=== PATIENT | female | born 1930 | race Caucasian/White ===

== ENCOUNTER 2017-05-06 18:33 | Observation (INO) ==
--- NOTE | 2017-05-06 18:44 | Emergency Department Report ---
Chest Pain HPI - General Stated Complaint: cp Time Seen by Provider: 05/06/17 18:39 Source: patient Mode of arrival: ambulatory Limitations: no limitations - History of Present Illness HPI narrative: Chest pain persistent upper chest and into right shoulder and neck. Took her routine Claritin and Nitro without relief. 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 Sometimes pt requires IV Nitro drip, and feels that she is at that point now. MD complaint: chest pain Onset (ago): hour(s) - Related Data Home Medications Medication Instructions Recorded Confirmed Aspirin 81 mg PO DAILY #0 03/21/16 05/06/17 Clopidogrel Bisulfate [Plavix] 75 mg PO DAILY #0 03/21/16 05/06/17 Gemfibrozil 600 mg PO DAILY #0 03/21/16 05/06/17 Levothyroxine Sodium 88 mcg PO DAILY #0 03/21/16 05/06/17 Loratadine 10 mg PO DAILY #0 03/21/16 05/06/17 Nitroglycerin 1 spray BUC PRN #0 07/02/16 05/06/17 Amlodipine [Norvasc] 10 mg PO DAILY 02/04/17 05/06/17 Biotin 1 mg PO DAILY 02/04/17 05/06/17 Metformin [Glucophage] 1,000 mg PO BIDWM 02/04/17 05/06/17 Multivitamin [One Daily 1 each PO DAILY 02/04/17 05/06/17 Multivitamin] Spironolactone [Aldactone] 50 mg PO DAILY 02/04/17 05/06/17 Ascorbic Acid 500 mg PO DAILY 05/06/17 05/06/17 Cholecalciferol [Vit. D-3] 1,000 units PO DAILY 05/06/17 05/06/17 Famotidine 10 mg PO DAILY 05/06/17 05/06/17 LORazepam [Ativan] 0.5 mg PO PRN PRN 05/06/17 05/06/17 Magnesium Chloride [Slo Mag] 2 tab PO DAILY 05/06/17 05/06/17 Nitroglycerin [Nitroglycerin Patch] 0.6 mg TD DAILY 05/06/17 05/06/17 Tramadol [Ultram] 50 mg PO Q4HR 05/06/17 05/06/17 Allergies Allergy/AdvReac Type Severity Reaction Status Date / Time propranolol Allergy Unknown Verified 02/04/17 18:48 Icpjkzb-Ilu-Ewv Reductase Allergy Unknown Verified 02/04/17 18:48 Inhibitor gluten AdvReac Intermediate "My body Verified 02/04/17 18:48 doesn't handle it well if I have too much" Review of Systems All systems: reviewed and negative except as stated PFSH Patient Stated Medical History Transient Ischemic Attacks ( Yes TIA) Cataracts Yes Hypertension Yes Other Cardiology Yes: coronary artery spasm Diabetes Mellitus Type 2 Yes Gastroesophageal Reflux Yes Disease Post Menopausal Yes Prinzmetal Angina Surgical History: Hysterectomy - Social History Smoking status: Never smoker Physical Exam - Limitations Limitations: no limitations - General General appearance: alert - Normal Exams: Head:: Normocephalic without trauma Eyes:: Pupils are PERRLA w/ EOMI, No scleral icterus, irritation, or foreign bodies noted ENMT:: No facial trauma, nasal exudates, pharyngeal erythema, or exudates are noted Neck:: Full range of motion, without adenopathy, JVD, bruits or thyromegaly Chest/Respirations:: Clear all jordan, with good airflow, and symmetry bilaterally Abdomen:: Bowel sounds positive, soft, non-tender, non-distended, no hepatosplenomegaly, masses or bruits noted Lymphatic:: No lymphadenopathy, or lymphedema noted Musculoskeletal:: No tenderness, or deformity noted, good range of motion, all extremities Integumentary:: No rashes, hives, or bruising noted, hair and nails, without abnormality Neurological:: Patient is alert, and oriented, cranial nerves, motor/sensory/ cerebellar, exams w/o gross deficits, to observation Psychiatric:: Patient exhibits, appropriate attention, emotion and affect - Chest Chest inspection: Present: normal inspection, symmetric chest wall rise. Absent : tenderness - Cardiovascular Cardiovascular exam: Present: regular rate, normal rhythm, systolic murmur. Absent: bradycardia, tachycardia, normal heart sounds, diastolic murmur, rubs, gallop, clicks, JVD Course Vital Signs Temperature 98.0 F 05/06/17 18:33 Pulse Rate 78 05/06/17 18:33 Respiratory Rate 16 05/06/17 18:33 Blood Pressure 178/78 H 05/06/17 18:33 Pulse Oximetry 97 05/06/17 18:33 Temperature 98.0 F 05/06/17 18:33 Pulse Rate 68 05/06/17 18:55 Respiratory Rate 15 05/06/17 18:55 Blood Pressure 118/61 05/06/17 18:55 Pulse Oximetry 98 05/06/17 18:55 Chest Pain - MDM Narrative Medical decision making narrative: EKG shows a normal sinus rhythm without ischemia, ectopy, or infarction Patient given one sublingual nitroglycerin here in the ER, and had significant reduction in pain from 5-1. Patient given additional one nitroglycerin, and started on nitro paste Patient is also given 1 L normal saline IV fluid bolus CBC - n CMP - n Troponin - n Discussion with the patient and her spouse reveal that the patient would prefer to be admitted to [facility] where her volunteer specialist is, however due to her 's frailty, she would prefer to state [facility]'s she is unable to get a hold of her family so that they can watch over her while she is in the hospital. She would prefer that he does not have far to drive between home and the hospital. Case is discussed with Susana Chicas APRN - admit to Dr. Patterson's service for observation tonight and continued therapy - Lab Data Result diagrams: 05/06/17 19:04 05/06/17 19:04 Lab Results 05/06/17 05/06/17 Range/Units 19:04 19:04 WBC 8.3 (4.5-11.0) T/MM3 RBC 4.90 (4.00-5.20) M/MM3 Hgb 13.5 (12-16) GM/DL Hct 41.8 (36-46) % MCV 85.3 (80-100) UM3 MCH 27.6 (26-34) UUG MCHC 32.3 (31-37) GM/DL RDW Std Deviation 40.5 (36.9-50.2) FL Plt Count 432 H (130-400) T/MM3 MPV 10.2 (9.4-12.4) UM3 Immature Gran % (Auto) 0.1 (0.0-0.5) % Neut % (Auto) 47.9 (33-66) % Lymph % (Auto) 38.4 (23-45) % [place] % (Auto) 9.9 H (0-9.0) % Eos % (Auto) 2.7 (0-4) % Baso % (Auto) 1.0 (0-2) % Neut # 4.0 (1.8-7.7) T/MM3 Lymph # 3.2 (1-4.8) T/MM3 [place] # 0.8 (0-0.8) T/MM3 Eos # 0.2 (0-0.5) T/MM3 Baso # 0.1 (0-0.2) T/MM3 Abs Immat Gran (auto) 0.01 (0.00-0.03) T/MM3 Turbidity < 20 (0-20) Sodium 143 (134-144) MEQ/L Potassium 4.2 (3.6-5) MEQ/L Chloride 100 (98-107) MEQ/L Carbon Dioxide 29 (22-30) MEQ/L Anion Gap 14 (5-15) MEQ/L BUN 19.0 H (7-17) MG/DL Creatinine 0.8 (0.7-1.2) MG/DL GFR Calculation 68 BUN/Creatinine Ratio 24 (6-26) RATIO Glucose 198 H (65-110) MG/DL Calculated Osmolality 283 H (261-280) MOSM/KG Calcium 10.8 H (8.4-10.2) MG/DL Total Bilirubin 0.60 (0.20-1.30) MG/DL Conjugated Bilirubin 0.00 (0.00-0.30) MG/DL Unconjugated Bilirubin 0.10 (0.00-11.10) MG/DL Icterus Index < 2 (0-7) AST 18 (14-36) U/L ALT 31 (9-52) U/L Alkaline Phosphatase 81 (38-126) U/L Troponin I < 0.012 (0-0.12) ng/ml Total Protein 8.6 H (6.3-8.2) G/DL Albumin 4.9 (3.5-5.0) G/DL Globulin 3.7 H (2.4-3.6) G/DL Albumin/Globulin Ratio 1.3 (1.1-2.2) RATIO Specimen Hemolysis < 15 (0-25) Disposition Clinical Impression: Prinzmetal's angina Disposition: 02 To OBS [facility] [place] Condition: Improved - Seen By: physician
[2017-05-06] MEDS: SALINE FLUSH 10ml SYRINGE IVF PRN (18:45)
[2017-05-06] MEDS ORDERED: NITROGLYCERIN 0.4 MG SUBLINGUAL TABLET SL ONE ×2 (18:48→19:02)
[2017-05-06] MEDS ORDERED: ASPIRIN 81 MG CHEWABLE TABLET PO ONE (18:48)
[2017-05-06] MEDS ORDERED: NITROGLYCERIN DRIP 50 MG/250 ML BAG IV PRN (18:52)
--- OUTSIDE RECORDS SUMMARY | 2017-05-06 18:52 | External Medical Summary | Referral Summary ---
:1930 Author Organization [facility], [address] [place] [address] Care Team Providers Name Role Phone Moose Smith V Primary Care Physician Encounter VC Date(s): 03/18/16 - 03/18/16 [facility] [address] [place] [address] Discharge Diagnosis: Hyperlipidemia Discharge Diagnosis: Hypothyroidism Discharge Diagnosis: Hx-TIA (transient ischemic attack) Discharge Diagnosis: Benign hypertension Discharge Diagnosis: Hx of peptic ulcer Discharge Diagnosis: Type 2 diabetes mellitus Discharge Diagnosis: CAD (coronary artery disease) Discharge Diagnosis: Weight loss Discharge Disposition: 01-Home or Self Care Attending Physician: Moose Smith MD Admitting Physician: Moose Smith MD Vital Signs Most recent to oldest [Reference Range]: 1 Temperature Tympanic [36.6-38.1 degC] 36.9 degC (03/18/16 3:47 PM) Peripheral Pulse Rate [60-100 bpm] 69 bpm (03/18/16 3:47 PM) Blood Pressure [90-140/60-90 mmHg] 140/65 mmHg (03/18/16 3:47 PM) SpO2 96 % (03/18/16 3:47 PM) Problem List Condition Effective Dates Status Health Status Informant Angina/ Chest Pain(Confirmed) Resolved Cataracts(Confirmed) Resolved Diabetes(Confirmed) Resolved Heart Disease(Confirmed) Resolved High Cholesterol(Confirmed) Resolved Irregular Heart Rhythm(Confirmed) Resolved Obesity(Confirmed) Active patient Rheumatic fever(Confirmed) Resolved Thyroid Diease/ Goiter(Confirmed) Resolved Type 2 diabetes mellitus(Confirmed) Active Ulcers(Confirmed) Resolved Varicella Zoster(Confirmed) Resolved Allergies, Adverse Reactions, Alerts Substance Reaction Severity Status atenolol Active codeine Active hydrochlorothiazide Active niacin Active propranolol Active simvastatin Active spironolactone Active Medications amLODIPine 5 mg, Oral, Daily, 0 Refill(s) Start Date: 03/18/16 Status: Orderedaspirin 81 mg, Oral, Daily, 0 Refill(s) Start Date: 02/10/14 Status: OrderedBenadryl 50 mg, Oral, Bedtime (once a day), 0 Refill(s) Start Date: 03/18/16 Status: Orderedbiotin 5 mg, Oral, Daily, 0 Refill(s) Start Date: 02/10/14 Status: OrderedClaritin 10 mg, Oral, Daily, 0 Refill(s) Start Date: 02/10/14 Status: Orderedfurosemide 20 mg oral tablet 20 mg 1 tabs, Oral, Daily, # 30 tabs, 0 Refill(s) Start Date: 04/11/15 Status: OrderedHome Oxygen (DME) See Instructions, # 1 Each, 0 Refill(s), Supply Start Date: 02/10/14 Status: OrderedImdur 120 mg oral tablet, extended release See Instructions, 2 x daily 7 hrs apart, 0 Refill(s) Start Date: 02/10/14 Status: OrderedL-Carnitine 250 mg oral capsule 1 caps, Oral, Daily, # 60 caps, 0 Refill(s) Start Date: 02/10/14 Status: OrderedLantus Solostar Pen 12 units, SubCutaneous, Bedtime (once a day), 0 Refill(s) Start Date: 03/18/16 Status: Orderedlevothyroxine 88 mcg, Oral, Daily, 0 Refill(s) Start Date: 02/10/14 Status: OrderedLopid 600 mg, Oral, q2Days, 0 Refill(s) Start Date: 02/10/14 Status: Orderedmultivitamin Daily, 0 Refill(s) Start Date: 02/10/14 Status: Orderednitroglycerin 0.4 mg sublingual spray 1 sprays, SubLingual, q5min, as needed for chest pain, # 12 g, 0 Refill(s) Start Date: 02/10/14 Status: OrderedOne Touch Ultra Test strips One Touch Ultra Test strips, See Instructions, TEST 3 times a day; dx code: 250.02, # 270 Each, 1 Refill(s), Pharmacy: [facility] #[id number], patient needs an appt, TEST 3 times a day; dx code: 250.02 Start Date: 01/01/15 Status: OrderedPlavix 75 mg oral tablet 1 tabs, Oral, Daily, # 30 tabs, 0 Refill(s) Start Date: 02/10/14 Status: OrderedSlow-Mag See Instructions, 2 AT HS, 1 AM, 0 Refill(s) Start Date: 02/10/14 Status: Orderedspironolactone 25 mg oral tablet 1 tabs, Oral, Daily, # 30 tabs, 0 Refill(s) Start Date: 02/10/14 Status: OrderedtraMADol 50 mg oral tablet 50 mg 1 tabs, Oral, q4hr, as needed for pain, 0 Refill(s) Start Date: 03/18/16 Status: Ordered Results No data available for this section Immunizations No data available for this section Procedures Procedure Date Related Diagnosis Body Site Cataract extraction Cholecystectomy Heart Cath& stents Hospitalization - many times for angina1 hysterectomy Miscellaneous2 tonsillectomy 1See conversion document.2right SHOULDER SURG - ROTATOR CUFF REPAIR, 2001 Social History Social History Type Response Smoking Status Never smoker Assessment and Plan Extracted from: Title: estab. patient Author: Moose Smith MD Date: 03/18/16 Impression and Plan Diagnosis Hypothyroidism (YLP20-ZD E03.9, Discharge, Medical). Type 2 diabetes mellitus (RXX57-RI E11.9, Discharge, Medical). Hyperlipidemia (LUB26-ES E78.5, Discharge, Medical). Benign hypertension (VFH61-JC I10, Discharge, Medical). CAD (coronary artery disease) (JWJ17-DD I25.10, Discharge, Medical). Weight loss (IYB25-NV R63.4, Discharge, Medical). Hx-TIA (transient ischemic attack) (JCS52-OM Z86.73, Discharge, Medical). Hx of peptic ulcer (PCC76-XL Z87.11, Discharge, Medical). Orders Orders (Selected) Outpatient Orders Future (On Hold) Albumin/Creatinine Ratio, Urine: CMP: Fasting Lipid Profile: Hgb A1c: TSH with Reflex Free T4: .
--- OUTSIDE RECORDS SUMMARY | 2017-05-06 18:52 | External Medical Summary | Referral Summary ---
:1930 Author Organization [facility], Gennaro Bryant Address [address] [place] [address] Care Team Providers Name Role Phone Garfield Siena Pennie Primary Care Physician Encounter VC Date(s): 04/11/15 - 04/11/15 [facility], [facility] [address] [place] [address] - [place] Discharge Diagnosis: Type 2 diabetes mellitus Discharge Diagnosis: Hyperlipidemia Discharge Disposition: 01-Home or Self Care Attending Physician: Shelly Reis Admitting Physician: Shelly Reis Vital Signs Most recent to oldest [Reference Range]: 1 Peripheral Pulse Rate [60-100 bpm] 82 bpm (04/11/15 10:14 AM) Blood Pressure [90-140/60-90 mmHg] 140/80 mmHg (04/11/15 10:14 AM) Problem List Condition Effective Dates Status Health [...] propranolol Active simvastatin Active spironolactone Active Medications aspirin 81 mg, Oral, Daily, 0 Refill(s) Start Date: 02/10/14 Status: Orderedbiotin 5 mg, Oral, Daily, 0 Refill(s) Start Date: 02/10/14 Status: Orderedcinnamon 500 mg oral capsule 1 caps, Oral, Daily, # 100 caps, 0 Refill(s) Start Date: 02/10/14 Status: OrderedClaritin 10 mg, Oral, Daily, 0 Refill(s) Start Date: 02/10/14 Status: OrderedCo Q-10 100 mg, Oral, Daily, 0 Refill(s) Start Date: 02/10/14 Status: Orderedfamotidine 20 mg oral tablet 1 tabs, Oral, Daily, # 30 tabs, 0 Refill(s) Start Date: 02/10/14 Status: OrderedFish Oil 1000 mg oral capsule 1 caps, Oral, BID, # 60 caps, 0 Refill(s) Start Date: 02/10/14 Status: Orderedfurosemide 20 mg oral tablet 20 mg 1 tabs, Oral, Daily, # 30 tabs, 0 Refill(s) Start Date: 04/11/15 Status: OrderedGlucometer strips (DME) DME Item One Touch ultra test strips Test fasting and 2 hrs after each meal, See Instructions, # 1 Each, 0 Refill(s), Supply Start Date: 02/10/14 Status: OrderedGlucometer strips (DME) DME Item One touch ultra blue strips; Test 4 times daily; dx code: 250.02, See Instructions, # 360 Each, 3 Refill(s), Pharmacy: [facility] #[id number], One touch ultra blue strips; Test 4 times daily; dx code: 250.02, Supply Start Date: 10/12/14 Status: OrderedHome Oxygen (DME) See Instructions, # 1 Each, 0 Refill(s), Supply Start Date: 02/10/14 Status: OrderedHumaLOG 6 units, SubCutaneous, TIDAC, Humalog Kwik Pen, 0 Refill(s) Start Date: 02/10/14 Status: OrderedImdur 120 mg oral tablet, extended release See Instructions, 2 x daily 7 hrs apart, 0 Refill(s) Start Date: 02/10/14 Status: OrderedInsulin Pin [place] (DME) DME Item use with insulin QID, See Instructions, # 1 Each, 0 Refill(s), Supply Start Date: 02/10/14 Status: OrderedL-Carnitine 250 mg oral capsule 1 caps, Oral, Daily, # 60 caps, 0 Refill(s) Start Date: 02/10/14 Status: OrderedLantus Solostar Pen 100 units/mL subcutaneous solution 16 units, SubCutaneous, Bedtime (once a day), # 1 packets, 6 Refill(s), Pharmacy : [facility] #[id number], 16 units SubCutaneous Bedtime (once a day) Start Date: 04/11/15 Status: OrderedLecithin-Softgels 400 mg 2 tabs, Oral, Daily, 0 Refill(s) Start Date: 02/10/14 Status: Orderedlevothyroxine 88 mcg, Oral, Daily, 0 Refill(s) Start Date: 02/10/14 Status: OrderedLopid 600 mg, Oral, q2Days, 0 Refill(s) Start Date: 02/10/14 Status: OrderedmetFORMIN 500 mg oral tablet, extended release 1,000 mg 2 tabs, Oral, BID, # 120 tabs, 3 Refill(s), Pharmacy: [facility] #[id number], 2 tabs OralBID Start Date: 04/11/15 Status: Orderedmetoprolol tartrate 25 mg oral tablet 12.5 mg 0.5 tabs, Oral, Daily, PRN, 0 Refill(s) Start Date: 04/11/15 Status: Orderedmultivitamin Daily, 0 Refill(s) Start Date: 02/10/14 Status: OrderedNitro-Dur 0.6 mg, TransDermal, Daily, 0 Refill(s) Start Date: 02/10/14 Status: Orderednitroglycerin 0.4 mg sublingual spray 1 sprays, SubLingual, q5min, as needed for chest pain, # 12 g, 0 Refill(s) Start Date: 02/10/14 Status: OrderedOne Touch Ultra Test strips One Touch Ultra Test strips, See Instructions, TEST 3 times a day; dx code: 250.02, # 270 Each, 1 Refill(s), Pharmacy: [facility] #[id number], patient needs an appt, TEST 3 times a day; dx code: 250.02 Start Date: 01/01/15 Status: OrderedONE TOUCH ULTRA TEST STRIPS See Instructions, TEST FASTING AND 2 HOURS AFTER EACH MEAL, # 150 strip, 4 Refill(s), eRx: [facility] #[id number], TEST FASTING AND 2 HOURS AFTER EACH MEAL Start Date: 05/29/14 Status: OrderedONETOUCH ULTRA TEST STRIPS See Instructions, TEST BLOOD SUGARS THREE TIMES A DAY, # 300 strip, eRx: [facility] #[id number], TEST BLOOD SUGARS THREE TIMES A DAY Start Date: 06/25/15 Status: OrderedPlavix 75 mg oral tablet 1 tabs, Oral, Daily, # 30 tabs, 0 Refill(s) Start Date: 02/10/14 Status: OrderedProcardia XL 90 mg, Oral, Daily, 0 Refill(s) Start Date: 02/10/14 Status: OrderedSlow-Mag 1 tabs, Oral, BID, 0 Refill(s) Start Date: 02/10/14 Status: Orderedspironolactone 25 mg oral tablet 1 tabs, Oral, Daily, # 30 tabs, 0 Refill(s) Start Date: 02/10/14 Status: Orderedspironolactone 50 mg oral tablet 50 mg 1 tabs, Oral, Daily, # 30 tabs, 0 Refill(s) Start Date: 04/11/15 Status: OrderedVitamin D3 1,000 Intl_Units, Oral, Daily, 0 Refill(s) Start Date: 02/10/14 Status: Ordered Results No data available for this section Immunizations No data available for this section Procedures Procedure Date Related Diagnosis Body Site Cataract extraction Cholecystectomy Heart Cath& stents hysterectomy tonsillectomy Social History Social History Type Response Smoking Status Never smoker Assessment and Plan Extracted from: Title: Office Visit Note Author: Shelly Reis Date: 04/11/15 Assessment/Plan 1.Type 2 diabetes mellitus Ordered: Albumin/Creatinine Ratio, Urine Basic Metabolic Panel Hemoglobin A1c 2.Hyperlipidemia Orders: insulin glargine, 16 units, SubCutaneous, Bedtime (once a day), # 1 packets, 6 Refill(s), Pharmacy: [facility] #[id number], 16 units SubCutaneous Bedtime (once a day) metFORMIN, 1,000 mg 2 tabs, Oral, BID, # 120 tabs, 3 Refill(s), Pharmacy: [facility] #[id number], 2 tabs Oral BID Patient is here today for follow-up visit. Blood sugars appear to be fairly stable with occasional highs with supper. Recommend she continue monitoring her diet and exercising as tolerable. Patient states she would like to be off insulin. In the past she was on oral medications, metformin and Actos but discontinued as she thought it aggravated herprinzmetal angina. However she does not believe that to be true as she still gets episodes as often as she did now without those oral medicines. She would like to see if she can get off some insulin and go back to oral medications. As she tolerated metformin well in the past with the start therefirst. Recommend she start metformin ER 500 mg twice daily and increase to 2 tablets twice daily if tolerable. For now, she can hol d the Humalog. She will let us know if not tolerable orif her blood sugars are consistently over 200 or if she has lows. She will continue her Lantus. Discussed rotating injection sites. Discussed benefits of diet and activity also. She will call in weekly for evaluation.May addanotheroral agent or GLP if blood sugarsare high. We have other options depending on what her blood sugars are. She will call in blood sugars for evaluation. No other questions or concerns today. Extracted from: Title: Ambulatory Patient Education Author: Shelly Reis Date: 04/11/15 Family Medicine Blood Glucose Monitoring Monitoring your blood glucose (also know as blood sugar) helps you to manage your diabetes. It also helps you and your health care provider monitor your diabetes and determine how well your treatment plan is working. WHY SHOULD YOU MONITOR YOUR BLOOD GLUCOSE? It can help you understand how food, exercise, and medicine affect your blood glucose. It allows you to know what your blood glucose is at any given moment. You can quickly tell if you are having low blood glucose (hypoglycemia) or high blood glucose (hyperglycemia). It can help you and your health care provider know how to adjust your medicines. It can help you understand how to manage an illness or adjust medicine for exercise. WHEN SHOULD YOU TEST? Your health care provider will help you decide how often you should check your blood glucose. This may depend on the type of diabetes you have, your diabetes control, or the types of medicines you are t aking. Be sure to write down all of your blood glucose readings so that this information can be reviewed with your health care provider. See below for examples of testing times that your health care provider may suggest. Type 1 Diabetes Test 4 times a day if you are in good control, using an insulin pump, or perform multiple daily injections. If your diabetes is not well-controlled or if you are sick, you may need to monitor more often. It is a good idea to also monitor: Before and after exercise. Between meals and 2 hours after a meal. Occasionally between 2:00 and 3:00 a.m. Type 2 Diabetes It can vary with each person, but generally, if you are on insulin, test 4 times a day. If you take medicines by mouth (orally), test 2 times a day. If you are on a controlled diet, test once a day. If your diabetes is not well controlled or if you are sick, you may need to monitor more often. HOW TO MONITOR YOUR BLOOD GLUCOSE Supplies Needed Blood glucose meter. Test strips for your meter. Each meter has its own strips. You must use the strips that go with your own meter. A pricking needle (lancet). A device that holds the lancet (lancing device). A journal or log book to write down your results. Procedure Wash your hands with soap and water. Alcohol is not preferred. Prick the side of your finger (not the tip) with the lancet. Gently milk the finger until a small drop of blood appears. Follow the instructions that come with your meter for inserting the test strip, applying blood to the strip, and using your blood glucose meter. Other Areas to Get Blood for Testing Some meters allow you to use other areas of your body (other than your finger) to test your blood. These areas are called alternative sites. The most common alternative sites are: The forearm. The thigh. The back area of the lower leg. The palm of the hand. The blood flow in these areas is slower. Therefore, the blood glucose values you get may be delayed, and the numbers are different from what you would get from your fingers. Do not use alternative sites if you think you are having hypoglycemia. Your reading will not be accurate. Always use a finger if you are having hypoglycemia. Also, if you cannot feel your lows (hypoglycemia unawareness), always use your fingers for your blood glucose checks. ADDITIONAL TIPS FOR GLUCOSE MONITORING Do not reuse lancets. Always carry your supplies with you. All blood glucose meters have a 24-hour "hotline" number to call if you have questions or need help. Adjust (calibrate) your blood glucose meter with a control solution after finishing a few boxes of strips. BLOOD GLUCOSE RECORD KEEPING It is a good idea to keep a daily record or log of your blood glucose readings. Most glucose meters, if not all, keep your glucose records stored in the meter. Some meters come with the ability to downl oad your records to your home computer. Keeping a record of your blood glucose readings is especially helpful if you are wanting to look for patterns. Make notes to go along with the blood glucose readi ngs because you might forget what happened at that exact time. Keeping good records helps you and your health care provider to work together to achieve good diabetes management. Document Released: 08/19/2004 Document Revised: 08/22/2014 Document Reviewed: 01/09/2014 Exit[employer] Patient Information 2015 [facility], [facility]. This information is not intended to replace advice given to you by your health care provider. Make sure you discuss any questions you have with your health care provider. No follow up information was provided.
--- OUTSIDE RECORDS SUMMARY | 2017-05-06 18:52 | External Medical Summary ---
:1930 Author Organization eClinicalWorks Care Team Providers Name Role Phone Shane Abel Provider Role Unavailable Allergies, Adverse Reactions, Alerts Substance Reaction Event Type codeine Info Not Available Drug Allergy Zocor aches Drug Allergy propanolol Info Not Available Drug Allergy Atenolol significant bradycardia Drug Allergy Wheat Bran Info Not Available Drug Allergy Tetanus-Diphtheria Toxoids Td Info Not Available Drug Allergy Ranexa multiple symptoms Drug Allergy Niacin Info Not Available Drug Allergy Lipitor aches Drug Allergy Inderal Info Not Available Drug Allergy Betapace significant bradycardia Drug Allergy Aldactazide Info Not Available Drug Allergy Gluten Info Not Available Non Drug Allergy tape Info Not Available Non Drug Allergy Problems Problem Type Condition Code Onset Dates Condition Status Problem Mitral Regurgitation 424.0 Active Problem Dyslipidemia 272.4 Active Problem s/p stenting, coronary V45.82 Active Problem Fatigue 780.79 Active Problem Hypertension 401.9 Active Problem Aortic Valve Insufficiency 424.1 Active Problem Angina Pectoris 413.9 Active Problem Hypertension, Unspecified 401.9 Active Problem Dyslipidemia 272.4 Active Problem Coronary Artery Disease 414.01 Active Assessment Fatigue 780.79 Active Assessment Hypertension 401.9 Active Assessment Coronary Artery Disease 414.01 Active Assessment Aortic Valve Insufficiency 424.1 Active Problem Aortic regurgitation 424.1 Active Assessment Dyslipidemia 272.4 Active Problem Tricuspid valve disorders, 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 Medications Medication Code Code Instructions Start End Status Dosage System Date Date Slow [facility] [address]-46 Orally 2 tab not Magnesium/Calcium qhs defined Plavix [facility] [address]-96 75 MG Orally 1 [place] [address]-66 20 MG Orally 1 tablet [place] [address]-50 500 MG Orally 1 tablet Twice a day with meals Oxygen NDC 0 As needed for not chest [place] [address]-87 250 MG Orally 1 [place] [address]-07 500 MG Orally 1 capsule Once [place] [address]-26 25 mg Orally 1 tablet Once a day Powders NDC 0 Externally not defined Procardia XL [facility] 73070952439 90 Orally Once 1 tablet a day Loratadine [facility] [address]-70 10 MG Orally QD 1 tablet Slow-Mag [facility] [address]-95 20 mg Orally 2 tablets Once a day Benadryl [facility] [address]-06 25 MG Orally QD 1 tab Insulin NDC 0 not defined Aspirin [facility] [address]687 81 mg Orally 1 tablet Once a day Metoprolol [facility] [address]-12 25 MG Orally 1/2 Tartrate prn tablet Tramadol HCl [facility] [address]-89 50 MG Orally 1 tablet every 6 hrs as needed Imdur [facility] [address]-83 120 MG Orally 2 tablet BID [place] Syrup NDC 0 not defined Tradjenta [facility] [address]-42 5 MG Orally 1 tablet Once a day Levothyroxine [facility] [address]-01 88 MCG Orally 1 tablet Sodium Once a day Gemfibrozil [facility] [address]-57 600 MG Orally 4 1 tablet times a week Nitroglycerin [facility] [address]-73 0.4 MG not Sublingual prn defined Nitro patch ND 0 1 patch qd not defined Nitroglycerin [facility] [address]-96 0.6 mg/hr 1 patch Applied once a day Famotidine [facility] [address]-75 20 mg Orally 4 1 tablet times a week Biotin [facility] [address]-57 300 MCG Orally 1 tablet Once a day Procedures Procedure Coding System Code Date Office Visit, Est Pt., Level 4 CPT-4 77688 May 28, 2015 Vital Signs Date/Time: May 28, 2015 BMI 29.81 Index Weight 163 lbs Height 62 in Cardiac Monitoring Heart Rate 79 /min Oximetry 97 % Blood Pressure Diastolic 70 mm Hg Blood Pressure Systolic 120 mm Hg Results No Known Results Summary Purpose eClinicalWorks Submission
--- OUTSIDE RECORDS SUMMARY | 2017-05-06 18:52 | External Medical Summary | Referral Summary ---
:1930 Author Organization [facility], Gennaro Bryant Address [address] [place] [address] Care Team Providers Name Role Phone Merrill Siena Pennie Primary Care Physician Encounter VC Date(s): 04/11/15 - 04/11/15 [facility], [facility] [address] [place] [address] - [place] Discharge Diagnosis: Type [...] Instructions, # 360 Each, 3 Refill(s), Pharmacy: [facility] #[id number], One touch ultra blue strips; Test 4 [...] Refill(s) Start Date: 02/10/14 Status: OrderedInsulin Pin [place] (DME) DME Item use with insulin QID, See Instructions, # 1 Each, 0 Refill(s), Supply Start Date: 02/10/14 Status: OrderedL-Carnitine 250 mg oral capsule 1 caps, Oral, Daily, # 60 caps, 0 Refill(s) Start Date: 02/10/14 Status: OrderedLantus Solostar Pen 100 units/mL subcutaneous solution 16 units, SubCutaneous, Bedtime (once a day), # 1 packets, 6 Refill(s), Pharmacy : [facility] #[id number], 16 units SubCutaneous Bedtime (once a day) [...] BID, # 120 tabs, 3 Refill(s), Pharmacy: [facility] #[id number], 2 tabs OralBID Start Date: 04/11/15 Status: [...] 250.02, # 270 Each, 1 Refill(s), Pharmacy: [facility] #[id number], patient needs an appt, TEST 3 times a day; dx code: 250.02 Start Date: 01/01/15 Status: OrderedONE TOUCH ULTRA TEST STRIPS See Instructions, TEST FASTING AND 2 HOURS AFTER EACH MEAL, # 150 strip, 4 Refill(s), eRx: [facility] #[id number], TEST FASTING AND 2 HOURS AFTER EACH MEAL Start Date: 05/29/14 Status: OrderedONETOUCH ULTRA TEST STRIPS See Instructions, TEST BLOOD SUGARS THREE TIMES A DAY, # 300 strip, eRx: [facility] #[id number], TEST BLOOD SUGARS THREE TIMES A DAY [...] day), # 1 packets, 6 Refill(s), Pharmacy: [facility] #[id number], 16 units SubCutaneous Bedtime (once a day) metFORMIN, 1,000 mg 2 tabs, Oral, BID, # 120 tabs, 3 Refill(s), Pharmacy: [facility] #[id number], 2 tabs Oral BID Patient is here [...] Document Reviewed: 01/09/2014 ExitCare Patient Information 2015 [facility], [facility]. This information is not intended to replace advice given to you by your health care provider. Make sure you discuss any questions you have with your health care provider. No follow up information was provided.
--- OUTSIDE RECORDS SUMMARY | 2017-05-06 18:52 | External Medical Summary | Referral Summary ---
:1930 Author Organization [facility], Gennaro Bryant Address [address] [place] [address] Care Team Providers Name Role Phone Garfield Siena Pennie Primary Care Physician Encounter VC Date(s): 04/11/15 - 04/11/15 [facility] [address] [place] [address] - [place] Discharge Diagnosis: Type [...] Instructions, # 360 Each, 3 Refill(s), Pharmacy: [facility] #[id number], One touch ultra blue strips; Test 4 [...] Refill(s) Start Date: 02/10/14 Status: OrderedInsulin Pin [place] (DME) DME Item use with insulin QID, See Instructions, # 1 Each, 0 Refill(s), Supply Start Date: 02/10/14 Status: OrderedL-Carnitine 250 mg oral capsule 1 caps, Oral, Daily, # 60 caps, 0 Refill(s) Start Date: 02/10/14 Status: OrderedLantus Solostar Pen 100 units/mL subcutaneous solution 16 units, SubCutaneous, Bedtime (once a day), # 1 packets, 6 Refill(s), Pharmacy : [facility] #[id number], 16 units SubCutaneous Bedtime (once a day) [...] BID, # 120 tabs, 3 Refill(s), Pharmacy: [facility] #[id number], 2 tabs OralBID Start Date: 04/11/15 Status: [...] 250.02, # 270 Each, 1 Refill(s), Pharmacy: [facility] #[id number], patient needs an appt, TEST 3 times a day; dx code: 250.02 Start Date: 01/01/15 Status: OrderedONE TOUCH ULTRA TEST STRIPS See Instructions, TEST FASTING AND 2 HOURS AFTER EACH MEAL, # 150 strip, 4 Refill(s), eRx: [facility] #[id number], TEST FASTING AND 2 HOURS AFTER EACH MEAL Start Date: 05/29/14 Status: OrderedONETOUCH ULTRA TEST STRIPS See Instructions, TEST BLOOD SUGARS THREE TIMES A DAY, # 300 strip, eRx: [facility] #[id number], TEST BLOOD SUGARS THREE TIMES A DAY [...] day), # 1 packets, 6 Refill(s), Pharmacy: [facility] #[id number], 16 units SubCutaneous Bedtime (once a day) metFORMIN, 1,000 mg 2 tabs, Oral, BID, # 120 tabs, 3 Refill(s), Pharmacy: [facility] #[id number], 2 tabs Oral BID Patient is here [...] Document Reviewed: 01/09/2014 ExitCare Patient Information 2015 [facility], [facility]. This information is not intended to replace advice given to you by your health care provider. Make sure you discuss any questions you have with your health care provider. No follow up information was provided.
--- OUTSIDE RECORDS SUMMARY | 2017-05-06 18:52 | External Medical Summary | Referral Summary ---
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 Discharge Diagnosis: Hypercholesterolemia Discharge Diagnosis: Benign hypertension Discharge Disposition: 01-Home or Self Care Attending Physician: Moose Smith MD Admitting Physician: Moose Smith MD Vital Signs Most recent to oldest [Reference Range]: 1 Temperature Tympanic [36.6-38.1 degC] 36.7 degC (08/21/16 9:59 AM) Peripheral Pulse Rate [60-100 bpm] 78 bpm (08/21/16 9:59 AM) Blood Pressure [90-140/60-90 mmHg] 137/62 mmHg (08/21/16 9:59 AM) Problem List Condition Effective Dates Status Health Status Informant Angina/ Chest Pain(Confirmed) Resolved Benign hypertension(Confirmed) Active Cataracts(Confirmed) Resolved Diabetes(Confirmed) Resolved Heart Disease(Confirmed) Resolved High Cholesterol(Confirmed) Resolved Hypercholesterolemia(Confirmed) Active Irregular Heart Rhythm(Confirmed) Resolved Obesity(Confirmed) Active patient Rheumatic fever(Confirmed) Resolved Thyroid Diease/ Goiter(Confirmed) Resolved Type 2 diabetes mellitus(Confirmed) Active Ulcers(Confirmed) Resolved Prinzmetal angina(Confirmed) Active Varicella Zoster(Confirmed) Resolved Allergies, Adverse Reactions, Alerts Substance Reaction Severity Status atenolol Active codeine Active hydrochlorothiazide Active niacin Active propranolol Active simvastatin Active Medications amLODIPine 5 mg oral tablet 5 mg, Oral, Daily, 1.5 tablets daily=7.5 mg/day, # 30 tabs, 6 Refill(s), Pharmacy: [facility] #[id number] Start Date: 05/20/16 Status: Orderedarginine Oral, 0 Refill(s) Start Date: 07/07/16 Status: Orderedaspirin 81 mg, Oral, Daily, 0 Refill(s) Start Date: 02/10/14 Status: Orderedbiotin 5 mg, Oral, Daily, 0 Refill(s) Start Date: 02/10/14 Status: OrderedClaritin 10 mg, Oral, Daily, 0 Refill(s) Start Date: 02/10/14 Status: Orderedfamotidine 20 mg, take four times weekly, 0 Refill(s) Start Date: 07/14/16 Status: OrderedGlucometer strips (DME) DME Item PT USES ONE TOUCH ULTRA TEST STRIPS TO CHECK BLOOD SUGAR ONE TIME DAILY FOR DX E11.9, See Instructions, # 100 Each, 1 Refill(s), Pharmacy: [facility] #[id number], PT USES ONE TOUCH ULTRA TEST STRIPS TO CHECK BLOOD SUGAR ONE TIME DAILY FOR D... Start Date: 08/21/16 Status: OrderedHome Oxygen (DME) See Instructions, # 1 Each, 0 Refill(s), Supply Start Date: 02/10/14 Status: OrderedInsulin Pin [place] (DME) DME Item BD ULTRA FINE PEN NEEDLE 8MMX31 G USE QID WITH INSULIN FOR E11.9, See Instructions, # 400 Each, 0 Refill(s), Pharmacy: [facility] #[id number], BD ULTRA FINE PEN NEEDLE 8MMX31 G USE QID WITH INSULIN FOR E11.9, Supply Start Date: 07/22/16 Status: OrderedL-Carnitine 250 mg oral capsule 1 caps, Oral, Daily, # 60 caps, 0 Refill(s) Start Date: 02/10/14 Status: OrderedLantus Solostar Pen 100 units/mL subcutaneous solution 16 units, SubCutaneous, Bedtime (once a day), FILL 15, # 3 mL, 0 Refill(s), Pharmacy: [facility] #[id number], 16 units SubCutaneous Bedtime (once a day), Instr:FILL 15 Start Date: 07/22/16 Status: Orderedlevothyroxine 88 mcg (0.088 mg) oral tablet 88 mcg, Oral, Daily, # 30 tabs, 6 Refill(s), Pharmacy: [facility] #[id number] , 88 mcg Oral Daily Start Date: 05/20/16 Status: OrderedLopid 600 mg oral tablet 600 mg, Oral, Daily, # 30 tabs, 6 Refill(s), Pharmacy: [facility] #[id number] , 600 mg Oral Daily Start Date: 08/21/16 Status: OrderedmetFORMIN 500 mg oral tablet 1,000 mg 2 tabs, Oral, BID, DO NOT FILL UNTIL PATIENT CALLS, # 120 tabs, 1 Refill(s), Pharmacy: [facility] #[id number], 2 tabs Oral BID,Instr:DO NOT FILL UNTIL PATIENT CALLS Start Date: 05/20/16 Status: OrderedMisc Medication BEET ROOT POWDER-1 CAP DAILY, 0 Refill(s) Start Date: 07/14/16 Status: OrderedMisc Medication CITRUS BERGAMOT-ONE TAB DAILY, 0 Refill(s) Start Date: 07/14/16 Status: Orderedmultivitamin Daily, 0 Refill(s) Start Date: 02/10/14 Status: Orderednitroglycerin 0.4 mg sublingual spray 1 sprays, SubLingual, q5min, as needed for chest pain, # 12 g, 0 Refill(s) Start Date: 02/10/14 Status: Orderednitroglycerin 0.6 mg/hr transdermal film, extended release 1 patches, Topical, Daily, # 30 patches, 0 Refill(s) Start Date: 07/07/16 Status: OrderedONE TOUCH ULTRA TEST STRIPS ONE TOUCH ULTRA TEST STRIPS, See Instructions, USE TO TEST BLOOD SUGARS THREE TIMES A DAY - DX E11.9- 100 COUNT TEST STRIPS, # 100 Each, 0 Refill(s), Pharmacy : [facility] #[id number], USE TO TEST BLOOD SUGARS THREE TIMES A DAY - DX E11.9 - 100 COUN... Start Date: 04/03/16 Status: OrderedPlavix 75 mg oral tablet 75 mg 1 tabs, Oral, Daily, DO NOT FILL UNTIL PATIENT CALLS, # 30 tabs, 6 Refill( s), Pharmacy: [facility] #[id number], 1 tabs Oral Daily,Instr:DO NOT FILL UNTIL PATIENT CALLS Start Date: 05/20/16 Status: OrderedSlow-Mag See Instructions, 2 AT HS, 1 AM, 0 Refill(s) Start Date: 02/10/14 Status: Orderedspironolactone 50 mg oral tablet 50 mg 1 tabs, Oral, Daily, 0 Refill(s) Start Date: 05/20/16 Status: OrderedtraMADol 50 mg oral tablet 50 mg 1 tabs, Oral, q4hr, as needed for pain, 0 Refill(s) Start Date: 03/18/16 Status: Ordered Results No data available for this section Immunizations Given and Recorded Vaccine Date Status Refusal Reason influenza virus vaccine, inactivated 05/19/16 Given pneumococcal 13-valent conjugate vaccine 05/19/16 Given Procedures Procedure Date Related Diagnosis Body Site Cardiac catheterization1 07/10/16 Cataract extraction Cholecystectomy Heart Cath& stents Hospitalization - many times for angina2 hysterectomy Miscellaneous3 tonsillectomy 1Left heart cath-normal LV function with EF 65%, no significant CAD was [id number] conversion document.3right SHOULDER SURG - ROTATOR CUFF REPAIR, 2001 Social History Social History Type Response Smoking Status Never smoker Assessment and Plan Extracted from: Title: 3 Month CDM DM HTN Author: Moose Smith MD Date: 08/21/16 Impression and Plan Diagnosis Benign hypertension (KRY35-NM I10, Discharge, Medical). Hypercholesterolemia (MLZ72-SM E78.00, Discharge, Medical). Prinzmetal angina (KUQ94-DW I20.1, Discharge, Medical). Type 2 diabetes mellitus with mononeuropathy (MCA65-GM E11.40, Discharge, Medical). Orders Orders (Selected) Prescriptions Prescribed Glucometer strips (DME): See Instructions, PT USES ONE TOUCH ULTRA TEST STRIPS TO CHECK BLOOD SUGAR ONE TIME DAILY FOR DX E11.9, 100 Each, 1 Refill(s) Lopid 600 mg oral tablet: 600 mg, Oral, Daily, 30 tabs, 6 Refill(s) Plavix 75 mg oral tablet: 75 mg=1 tabs, Oral, Daily, DO NOT FILL UNTIL PATIENT CALLS, 30 tabs, 6 Refill(s) amLODIPine 5 mg oral tablet: 5 mg, Oral, Daily, 1.5 tablets daily=7.5 mg/day, 30 tabs, 6 Refill(s) levothyroxine 88 mcg (0.088 mg) oral tablet: 88 mcg, Oral, Daily, 30 tabs, 6 Refill(s) metFORMIN 500 mg oral tablet: 1,000 mg=2 tabs, Oral, BID, DO NOT FILL UNTIL PATIENT CALLS, 120 tabs, 1 Refill(s).
--- OUTSIDE RECORDS SUMMARY | 2017-05-06 18:52 | External Medical Summary | Referral Summary ---
:1930 Author Organization [facility] [address] [place] [address] Care Team Providers Name Role Phone Moose Smith V Primary Care Physician Encounter VC Date(s): 05/19/16 - 05/19/16 [facility] [address] [place] [address] Discharge Diagnosis: Insomnia Discharge Diagnosis: Diabetes type 2, uncontrolled Discharge Diagnosis: CAD (coronary artery disease) Discharge Diagnosis: Type 2 diabetes mellitus Discharge Diagnosis: Polypharmacy Discharge Diagnosis: Hypercholesterolemia Discharge Disposition: 01-Home or Self Care Attending Physician: Moose Smiht MD Admitting Physician: Moose Smith MD Vital Signs Most recent to oldest [Reference Range]: 1 Temperature Tympanic [36.6-38.1 degC] 36.9 degC (05/19/16 3:32 PM) Peripheral Pulse Rate [60-100 bpm] 72 bpm (05/19/16 3:32 PM) Blood Pressure [90-140/60-90 mmHg] 124/60 mmHg (05/19/16 3:32 PM) Problem List Condition Effective Dates Status [...] 04/11/15 Status: OrderedGlucometer strips (DME) DME Item PT USES ONE TOUCH ULTRA TEST STRIPS TO CHECK BLOOD SUGAR ONE TIME DAILY FOR DX E11.9, See Instructions, # 100 Each, 1 Refill(s), Pharmacy: [facility] #[id number], PT USES ONE TOUCH ULTRA TEST STRIPS TO CHECK BLOOD SUGAR ONE TIME DAILY FOR D... Start Date: 04/07/16 Status: OrderedHome Oxygen (DME) See Instructions, # [...] g, 0 Refill(s) Start Date: 02/10/14 Status: OrderedONE TOUCH ULTRA TEST STRIPS ONE TOUCH ULTRA TEST STRIPS, See Instructions, USE TO TEST BLOOD SUGARS THREE TIMES A DAY - DX E11.9- 100 COUNT TEST STRIPS, # 100 Each, 0 Refill(s), Pharmacy : [facility] #[id number], USE TO TEST BLOOD SUGARS THREE TIMES A DAY - DX E11.9 - 100 COUN... Start Date: 04/03/16 Status: OrderedPlavix 75 mg oral tablet 1 [...] No data available for this section Immunizations Vaccine Date Refusal Reason influenza virus vaccine, inactivated 05/19/16 pneumococcal 13-valent conjugate vaccine 05/19/16 Procedures Procedure Date Related Diagnosis Body Site Cataract extraction Cholecystectomy Heart Cath& stents Hospitalization - many times for angina1 hysterectomy Miscellaneous2 tonsillectomy 1See conversion document.2right SHOULDER SURG - ROTATOR CUFF REPAIR, 2001 Social History Social History Type Response Smoking Status Never smoker Assessment and Plan Extracted from: Title: CDM DM HTN Author: Moose Smith MD Date: 05/19/16 Impression and Plan Diagnosis CAD (coronary artery disease) (MOS31-DS I25.10, Discharge, Medical). Diabetes type 2, uncontrolled (ZOZ83-AE E11.65, Discharge, Medical). Hypercholesterolemia (DPZ91-WG E78.0, Discharge, Medical). Insomnia (KOU99-VM G47.00, Discharge, Medical). Polypharmacy (QWK09-RF Z79.899, Discharge, Medical). Type 2 diabetes mellitus (PYX07-TT E11.9, Discharge, Medical).
--- OUTSIDE RECORDS SUMMARY | 2017-05-06 18:52 | External Medical Summary | Referral Summary ---
:1930 Author Organization [facility] [place], [facility] Address [address] [place] [address] [place] [address] Care Team Providers Name Role Phone Moose Smith V Primary Care Physician Encounter VC Date(s): 05/22/16 - 05/22/16 [facility] [place], [address] [place] [address] [place] Discharge Diagnosis: Sore throat Discharge Diagnosis: Stiff neck Discharge Disposition: 01-Home or Self Care Attending Physician: Juancho Olivier PA-C Admitting Physician: Juancho Olivier PA-C Vital Signs Most recent to oldest [Reference Range]: 1 Temperature Tympanic [36.6-38.1 degC] 37.1 degC (05/22/16 4:02 PM) Peripheral Pulse Rate [60-100 bpm] 74 bpm (05/22/16 4:02 PM) Blood Pressure [90-140/60-90 mmHg] 124/58 mmHg (05/22/16 4:02 PM) SpO2 96 % (05/22/16 4:02 PM) Problem List Condition Effective Dates Status [...] mg oral tablet 5 mg, Oral, Daily, # 30 tabs, 6 Refill(s), Pharmacy: [facility] #[id number], 5 mg Oral Daily Start Date: 05/20/16 Status: Orderedaspirin 81 mg, Oral, Daily, 0 Refill(s) Start Date: 02/10/14 Status: Orderedbiotin 5 mg, Oral, Daily, 0 Refill(s) Start Date: 02/10/14 Status: OrderedClaritin 10 mg, Oral, Daily, 0 Refill(s) Start Date: 02/10/14 Status: OrderedGlucometer strips (DME) DME Item PT USES ONE TOUCH ULTRA TEST STRIPS TO CHECK BLOOD SUGAR ONE TIME DAILY FOR DX E11.9, See Instructions, # 100 Each, 1 Refill(s), Pharmacy: [facility] #[id number], PT USES ONE TOUCH ULTRA TEST STRIPS [...] OrderedLantus Solostar Pen 100 units/mL subcutaneous solution 12 units, SubCutaneous, Bedtime (once a day), DO NOT FILL UNTIL PATIENT CALLS, # 3 mL, 3 Refill(s), Pharmacy: [facility] #[id number], 12 units SubCutaneous Bedtime (once a day),Instr:DO NOT FILL UNTIL PATIENT CALLS Start Date: 05/20/16 Status: Orderedlevothyroxine 88 mcg (0.088 mg) oral tablet 88 mcg, Oral, Daily, # 30 tabs, 6 Refill(s), Pharmacy: [facility] #[id number] , 88 mcg Oral Daily Start Date: 05/20/16 Status: OrderedLopid 600 mg oral tablet 600 mg, Oral, Every other day, DO NOT FILL UNT [place] PATIENT CALLS, # 15 tabs, 6 Refill(s), Pharmacy: [facility] #[id number], 600 mg Oral Every other day,Instr :DO NOT FILL UNT [place] PATIENT CALLS Start Date: 05/20/16 Status: OrderedmetFORMIN 500 mg oral tablet 1,000 mg 2 tabs, Oral, BID, DO NOT FILL UNTIL PATIENT CALLS, # 120 tabs, 1 Refill(s), Pharmacy: [facility] #[id number], 2 tabs Oral BID,Instr:DO NOT FILL UNTIL PATIENT CALLS Start Date: 05/20/16 Status: Orderedmetoprolol tartrate 25 mg oral tablet See Instructions, T ADÁN 1/4 TAB PRN FOR CHEST PAIN, 0 Refill(s) Start Date: 05/20/16 Status: Orderedmultivitamin Daily, 0 Refill(s) Start Date: [...] # 100 Each, 0 Refill(s), Pharmacy : [facility] #[id number], USE TO TEST BLOOD SUGARS THREE TIMES A DAY - DX E11.9 - 100 COUN... Start Date: 04/03/16 Status: OrderedPlavix 75 mg oral tablet 75 mg 1 tabs, Oral, Daily, DO NOT FILL UNTIL PATIENT CALLS, # 30 tabs, 6 Refill( s), Pharmacy: [facility] #[id number], 1 tabs Oral Daily,Instr:DO NOT FILL UNTIL [...] document.2right SHOULDER SURG - ROTATOR CUFF REPAIR, 2002 Social History Social History Type Response Smoking Status Never smoker Assessment and Plan Extracted from: Title: Sore throat Author: Juancho Olivier PA-C Date: 05/22/16 Assessment/Plan Sore throat, Sore throat I feel the patient may be developing an upper respiratory infection. R ecommend supportive care. Rest. Practice good hand hygiene. Increase fluids. Patient was given a handout of ompm-llx-aquoyb r medications that were recommended for the patient. Tylenol/Ibuprofen as needed for fever or pain. FU with PCP if not improving, worsening symptoms, or as needed. Questions were answered. Patient verba lized understanding. Patient left in stable condition. Ordered: Rapid Strep POC Stiff neck In differential diagnosis could be cervical strain, meningitis, if patient develops fever, mental status change, follow up for additional assessment.
--- OUTSIDE RECORDS SUMMARY | 2017-05-06 18:53 | External Medical Summary | Referral Summary ---
:1930 Author Organization [facility], Gennaro Bryant Address [address] [place] [address] Care Team Providers Name Role Phone Merrill Siena Pennie Primary Care Physician Encounter VC Date(s): 04/11/15 - 04/11/15 [facility] [address] [place] [address] - us Discharge Diagnosis: Type [...] Instructions, # 360 Each, 3 Refill(s), Pharmacy: [facility] #[id number], One touch ultra blue strips; Test 4 [...] Refill(s) Start Date: 02/10/14 Status: OrderedInsulin Pin Anderson (DME) DME Item use with insulin QID, See Instructions, # 1 Each, 0 Refill(s), Supply Start Date: 02/10/14 Status: OrderedL-Carnitine 250 mg oral capsule 1 caps, Oral, Daily, # 60 caps, 0 Refill(s) Start Date: 02/10/14 Status: OrderedLantus Solostar Pen 100 units/mL subcutaneous solution 16 units, SubCutaneous, Bedtime (once a day), # 1 packets, 6 Refill(s), Pharmacy : [facility] #[id number], 16 units SubCutaneous Bedtime (once a day) [...] BID, # 120 tabs, 3 Refill(s), Pharmacy: [facility] #[id number], 2 tabs OralBID Start Date: 04/11/15 Status: [...] 250.02, # 270 Each, 1 Refill(s), Pharmacy: [facility] #[id number], patient needs an appt, TEST 3 times a day; dx code: 250.02 Start Date: 01/01/15 Status: OrderedONE TOUCH ULTRA TEST STRIPS See Instructions, TEST FASTING AND 2 HOURS AFTER EACH MEAL, # 150 strip, 4 Refill(s), eRx: [facility] #[id number], TEST FASTING AND 2 HOURS AFTER EACH MEAL Start Date: 05/29/14 Status: OrderedONETOUCH ULTRA TEST STRIPS See Instructions, TEST BLOOD SUGARS THREE TIMES A DAY, # 300 strip, eRx: [facility] #[id number], TEST BLOOD SUGARS THREE TIMES A DAY [...] day), # 1 packets, 6 Refill(s), Pharmacy: [facility] #[id number], 16 units SubCutaneous Bedtime (once a day) metFORMIN, 1,000 mg 2 tabs, Oral, BID, # 120 tabs, 3 Refill(s), Pharmacy: [facility] #[id number], 2 tabs Oral BID Patient is here [...] Document Reviewed: 01/09/2014 ExitCare Patient Information 2015 [facility], [facility]. This information is not intended to replace advice given to you by your health care provider. Make sure you discuss any questions you have with your health care provider. No follow up information was provided.
--- OUTSIDE RECORDS SUMMARY | 2017-05-06 18:53 | External Medical Summary | Referral Summary ---
:1930 Author Organization [facility], Gennaro Bryant Address [address] [place] [address] Care Team Providers Name Role Phone Garfield Siena Pennie Primary Care Physician Encounter VC Date(s): 04/11/15 - 04/11/15 [facility] [address] [place] [address] - us Discharge Diagnosis: Type [...] Instructions, # 360 Each, 3 Refill(s), Pharmacy: [facility] #[id number], One touch ultra blue strips; Test 4 [...] Refill(s) Start Date: 02/10/14 Status: OrderedInsulin Pin [place] (DME) DME Item use with insulin QID, See Instructions, # 1 Each, 0 Refill(s), Supply Start Date: 02/10/14 Status: OrderedL-Carnitine 250 mg oral capsule 1 caps, Oral, Daily, # 60 caps, 0 Refill(s) Start Date: 02/10/14 Status: OrderedLantus Solostar Pen 100 units/mL subcutaneous solution 16 units, SubCutaneous, Bedtime (once a day), # 1 packets, 6 Refill(s), Pharmacy : [facility] #[id number], 16 units SubCutaneous Bedtime (once a day) [...] BID, # 120 tabs, 3 Refill(s), Pharmacy: [facility] #[id number], 2 tabs OralBID Start Date: 04/11/15 Status: [...] 250.02, # 270 Each, 1 Refill(s), Pharmacy: [facility] #[id number], patient needs an appt, TEST 3 times a day; dx code: 250.02 Start Date: 01/01/15 Status: OrderedONE TOUCH ULTRA TEST STRIPS See Instructions, TEST FASTING AND 2 HOURS AFTER EACH MEAL, # 150 strip, 4 Refill(s), eRx: [facility] #[id number], TEST FASTING AND 2 HOURS AFTER EACH MEAL Start Date: 05/29/14 Status: OrderedONETOUCH ULTRA TEST STRIPS See Instructions, TEST BLOOD SUGARS THREE TIMES A DAY, # 300 strip, eRx: [facility] #[id number], TEST BLOOD SUGARS THREE TIMES A DAY [...] day), # 1 packets, 6 Refill(s), Pharmacy: [facility] #[id number], 16 units SubCutaneous Bedtime (once a day) metFORMIN, 1,000 mg 2 tabs, Oral, BID, # 120 tabs, 3 Refill(s), Pharmacy: [facility] #[id number], 2 tabs Oral BID Patient is here [...] Document Reviewed: 01/09/2014 ExitCare Patient Information [address] [facility], [facility]. This information is not intended to replace advice given to you by your health care provider. Make sure you discuss any questions you have with your health care provider. No follow up information was provided.
--- OUTSIDE RECORDS SUMMARY | 2017-05-06 18:53 | External Medical Summary ---
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
--- OUTSIDE RECORDS SUMMARY | 2017-05-06 18:53 | External Medical Summary | Referral Summary ---
:1930 Author Organization [facility] [address] [place] [address] Care Team Providers Name Role Phone Moose Smith V Primary Care Physician Encounter VC Date(s): 05/27/16 - 05/27/16 [facility] [address] [place] [address]- Discharge Diagnosis: Acute chest pain Discharge Diagnosis: CAD (coronary artery disease) Discharge Diagnosis: Type 2 diabetes mellitus Discharge Disposition: 01-Home or Self Care Attending Physician: Moose Smith MD Admitting Physician: Moose Smith MD Vital Signs Most recent to oldest [Reference Range]: 1 Peripheral Pulse Rate [60-100 bpm] 71 bpm (05/27/16 4:00 PM) Blood Pressure [90-140/60-90 mmHg] 142/64 mmHg *HI* (05/27/16 4:00 PM) Problem List Condition Effective Dates Status [...] Daily, # 30 tabs, 6 Refill(s), Pharmacy: [facility] #[id number], 5 mg Oral Daily Start Date: 05/20/16 [...] Instructions, # 100 Each, 1 Refill(s), Pharmacy: [facility] #[id number], PT USES ONE TOUCH ULTRA TEST STRIPS [...] CALLS, # 3 mL, 3 Refill(s), Pharmacy: [facility] #[id number], 12 units SubCutaneous Bedtime (once a day),Instr:DO NOT FILL UNTIL PATIENT CALLS Start Date: 05/20/16 Status: Orderedlevothyroxine 88 mcg (0.088 mg) oral tablet 88 mcg, Oral, Daily, # 30 tabs, 6 Refill(s), Pharmacy: [facility] #[id number] , 88 mcg Oral Daily Start Date: 05/20/16 Status: OrderedLopid 600 mg oral tablet 600 mg, Oral, Every other day, DO NOT FILL UNT [place] PATIENT CALLS, # 15 tabs, 6 Refill(s), Pharmacy: [facility] #[id number], 600 mg Oral Every other day,Instr :DO NOT FILL UNT [place] PATIENT CALLS Start Date: 05/20/16 Status: OrderedmetFORMIN 500 mg oral tablet 1,000 mg 2 tabs, Oral, BID, DO NOT FILL UNTIL PATIENT CALLS, # 120 tabs, 1 Refill(s), Pharmacy: [facility] #[id number], 2 tabs Oral BID,Instr:DO NOT FILL UNTIL PATIENT CALLS Start Date: 05/20/16 Status: Orderedmetoprolol tartrate 25 mg oral tablet See Instructions, Hugo ADÁN 1/4 TAB PRN FOR CHEST PAIN, [...] # 100 Each, 0 Refill(s), Pharmacy : [facility] #[id number], USE TO TEST BLOOD SUGARS THREE TIMES A DAY - DX E11.9 - 100 COUN... Start Date: 04/03/16 Status: OrderedPlavix 75 mg oral tablet 75 mg 1 tabs, Oral, Daily, DO NOT FILL UNTIL PATIENT CALLS, # 30 tabs, 6 Refill( s), Pharmacy: [facility] #[id number], 1 tabs Oral Daily,Instr:DO NOT FILL UNTIL [...] smoker Assessment and Plan Extracted from: Title: Acute OV Author: Moose Smith MD Date: 05/27/16 Impression and Plan Diagnosis Acute chest pain (ASO84-GW R07.9, Discharge, Medical).
--- OUTSIDE RECORDS SUMMARY | 2017-05-06 18:53 | External Medical Summary | Referral Summary ---
:1930 Author Organization [facility], Gennaro Bryant Address [address] [place] [address] Care Team Providers Name Role Phone Siena Merrill Pennie Primary Care Physician Encounter VC Date(s): 04/11/15 - 04/11/15 [facility] [address] [place] [address] - [place] Discharge Diagnosis: Type [...] Instructions, # 360 Each, 3 Refill(s), Pharmacy: [facility] #[id number], One touch ultra blue strips; Test 4 [...] Refill(s) Start Date: 02/10/14 Status: OrderedInsulin Pin Rush (DME) DME Item use with insulin QID, See Instructions, # 1 Each, 0 Refill(s), Supply Start Date: 02/10/14 Status: OrderedL-Carnitine 250 mg oral capsule 1 caps, Oral, Daily, # 60 caps, 0 Refill(s) Start Date: 02/10/14 Status: OrderedLantus Solostar Pen 100 units/mL subcutaneous solution 16 units, SubCutaneous, Bedtime (once a day), # 1 packets, 6 Refill(s), Pharmacy : [facility] #[id number], 16 units SubCutaneous Bedtime (once a day) Start Date: 04/11/15 Status: OrderedLecithin-Softgels 400 mg 2 tabs, Oral, Daily, 0 Refill(s) Start Date: 02/10/14 Status: Orderedlevothyroxine 88 mcg, Oral, Daily, 0 Refill(s) Start Date: 02/10/14 Status: OrderedLopid 600 mg, Oral, q2Days, 0 Refill(s) Start Date: 02/10/14 Status: OrderedmetFORMIN 500 mg oral tablet, extended release See Instructions, TAKE TWO TABLETS BY MOUTH TWICE A DAY, # 120 tabs, 2 Refill(s) , eRx: [facility] #[id number], TAKE TWO TABLETS BY MOUTH TWICE A DAY Start Date: 08/06/15 Status: Orderedmetoprolol tartrate 25 mg oral tablet [...] 250.02, # 270 Each, 1 Refill(s), Pharmacy: [facility] #[id number], patient needs an appt, TEST 3 times a day; dx code: 250.02 Start Date: 01/01/15 Status: OrderedONE TOUCH ULTRA TEST STRIPS See Instructions, TEST FASTING AND 2 HOURS AFTER EACH MEAL, # 150 strip, 4 Refill(s), eRx: [facility] #[id number], TEST FASTING AND 2 HOURS AFTER EACH MEAL Start Date: 05/29/14 Status: OrderedONETOUCH ULTRA TEST STRIPS See Instructions, TEST BLOOD SUGARS THREE TIMES A DAY, # 300 strip, eRx: [facility] #[id number], TEST BLOOD SUGARS THREE TIMES A DAY Start Date: 09/24/15 Status: OrderedONETOUCH ULTRA TEST STRIPS See Instructions, TEST BLOOD SUGARS THREE TIMES A DAY, # 300 strip, eRx: [facility] #[id number], TEST BLOOD SUGARS THREE TIMES A DAY [...] day), # 1 packets, 6 Refill(s), Pharmacy: [facility] #[id number], 16 units SubCutaneous Bedtime (once a day) metFORMIN, 1,000 mg 2 tabs, Oral, BID, # 120 tabs, 3 Refill(s), Pharmacy: [facility] #[id number], 2 tabs Oral BID Patient is here [...] Document Reviewed: 01/09/2014 ExitCare Patient Information 2015 [employer], [employer]. This information is not intended to replace advice given to you by your health care provider. Make sure you discuss any questions you have with your health care provider. No follow up information was provided.
--- OUTSIDE RECORDS SUMMARY | 2017-05-06 18:53 | External Medical Summary | Referral Summary ---
:1930 Author Organization [facility], Gennaro Bryant Address [address] [place] [address] Care Team Providers Name Role Phone Garfield Siena Pennie Primary Care Physician Encounter VC Date(s): 04/11/15 - 04/11/15 [facility] [address] [place] [address] - [place] Discharge Diagnosis: Type [...] Instructions, # 360 Each, 3 Refill(s), Pharmacy: [facility] #[id number], One touch ultra blue strips; Test 4 [...] Refill(s) Start Date: 02/10/14 Status: OrderedInsulin Pin [place] (DME) DME Item use with insulin QID, See Instructions, # 1 Each, 0 Refill(s), Supply Start Date: 02/10/14 Status: OrderedL-Carnitine 250 mg oral capsule 1 caps, Oral, Daily, # 60 caps, 0 Refill(s) Start Date: 02/10/14 Status: OrderedLantus Solostar Pen 100 units/mL subcutaneous solution 16 units, SubCutaneous, Bedtime (once a day), # 1 packets, 6 Refill(s), Pharmacy : [facility] #[id number], 16 units SubCutaneous Bedtime (once a day) [...] Refill(s), Pharmacy: [facility] #[id number], 2 tabs OralBID Start Date: 04/11/15 Status: [...] Refill(s), Pharmacy: [facility] #[id number], patient needs an appt, TEST 3 times a day; dx code: 250.02 Start Date: 01/01/15 Status: OrderedONE TOUCH ULTRA TEST STRIPS See Instructions, TEST FASTING AND 2 HOURS AFTER EACH MEAL, # 150 strip, 4 Refill(s), eRx: [facility] #[id number], TEST FASTING AND 2 HOURS AFTER EACH MEAL Start Date: 05/29/14 Status: OrderedONETOUCH ULTRA TEST STRIPS See Instructions, TEST BLOOD SUGARS THREE TIMES A DAY, # 300 strip, eRx: [facility] #[id number], TEST BLOOD SUGARS THREE TIMES A DAY [...] Refill(s), Pharmacy: [facility] #[id number], 16 units SubCutaneous Bedtime (once a day) metFORMIN, 1,000 mg 2 tabs, Oral, BID, # 120 tabs, 3 Refill(s), Pharmacy: [facility] #[id number], 2 tabs Oral BID Patient is here [...] Document Reviewed: 01/09/2014 ExitCare Patient Information 2015 [facility], [facility]. This information is not intended to replace advice given to you by your health care provider. Make sure you discuss any questions you have with your health care provider. No follow up information was provided.
--- OUTSIDE RECORDS SUMMARY | 2017-05-06 18:53 | External Medical Summary | Referral Summary ---
:1930 Author Organization [facility] [address] [place] [address] Care Team Providers Name Role Phone Moose Smith V Primary Care Physician Encounter VC Date(s): 10/01/16 - 10/01/16 [facility] [address] [place] [address]- Discharge Diagnosis: Weight loss Discharge Diagnosis: Diarrhea Discharge Diagnosis: FH: colon cancer Discharge Disposition: 01-Home or Self Care Attending Physician: Moose Smith MD Admitting Physician: Moose Smith MD Vital Signs Most recent to oldest [Reference Range]: 1 Peripheral Pulse Rate [60-100 bpm] 74 bpm (10/01/16 9:15 AM) Blood Pressure [90-140/60-90 mmHg] 120/60 mmHg (10/01/16 9:15 AM) Problem List Condition Effective Dates Status [...] mg/day, # 30 tabs, 6 Refill(s), Pharmacy: [facility] #[id number] Start Date: 05/20/16 Status: Orderedarginine Oral, 0 [...] Instructions, # 100 Each, 1 Refill(s), Pharmacy: [facility] #[id number], PT USES ONE TOUCH ULTRA TEST STRIPS TO CHECK BLOOD SUGAR ONE TIME DAILY FOR D... Start Date: 08/21/16 Status: OrderedHome Oxygen (DME) See Instructions, # 1 Each, 0 Refill(s), Supply Start Date: 02/10/14 Status: OrderedInsulin Pin [place] (DME) DME Item BD ULTRA FINE PEN NEEDLE 8MMX31 G USE QID WITH INSULIN FOR E11.9, See Instructions, # 400 Each, 0 Refill(s), Pharmacy: [facility] #[id number], BD ULTRA FINE PEN NEEDLE 8MMX31 G USE QID WITH INSULIN FOR E11.9, Supply Start Date: 07/22/16 Status: OrderedL-Carnitine 250 mg oral capsule 1 caps, Oral, Daily, # 60 caps, 0 Refill(s) Start Date: 02/10/14 Status: OrderedLantus Solostar Pen 100 units/mL subcutaneous solution 16 units, SubCutaneous, Bedtime (once a day), # 3 mL, 3 Refill(s), Pharmacy: [id number], 16 units SubCutaneous Bedtime (once a day) Start Date: 09/22/16 Status: Orderedlevothyroxine 88 mcg (0.088 mg) oral tablet 88 mcg, Oral, Daily, # 30 tabs, 6 Refill(s), Pharmacy: [facility] #[id number] , 88 mcg Oral Daily Start Date: 05/20/16 Status: OrderedLopid 600 mg oral tablet 600 mg, Oral, Daily, # 30 tabs, 6 Refill(s), Pharmacy: [facility] #[id number] , 600 mg Oral Daily Start Date: 08/21/16 Status: OrderedmetFORMIN 500 mg oral tablet 1,000 mg 2 tabs, Oral, BID, DO NOT FILL UNTIL PATIENT CALLS, # 120 tabs, 1 Refill(s), Pharmacy: [facility] #[id number], 2 tabs Oral BID,Instr:DO NOT FILL UNTIL [...] # 100 Each, 0 Refill(s), Pharmacy : [facility] #[id number], USE TO TEST BLOOD SUGARS THREE TIMES A DAY - DX E11.9 - 100 COUN... Start Date: 04/03/16 Status: OrderedPlavix 75 mg oral tablet 75 mg 1 tabs, Oral, Daily, # 30 tabs, 6 Refill(s), [id number], 1 tabs OralDaily Start Date: 09/22/16 Status: OrderedSlow-Mag See Instructions, 2 DAILY, 0 Refill(s) Start Date: 02/10/14 Status: Orderedspironolactone [...] with EF 65%, no significant CAD was [id number] conversion document.3right SHOULDER SURG - ROTATOR CUFF REPAIR, 2001 Social History Social History Type Response Smoking Status Never smoker Assessment and Plan Extracted from: Title: Acute OV-Diarrhea Author: Moose Smith MD Date: 10/01/16 Impression and Plan Diagnosis Diarrhea (UAF01-DB R19.7, Discharge, Medical). FH: colon cancer (UXB88-TS Z80.0, Discharge, Medical). Weight loss (XUW75-DI R63.4, Discharge, Medical).
--- OUTSIDE RECORDS SUMMARY | 2017-05-06 18:53 | External Medical Summary ---
:1930 Author Organization eClinicalWorks Care Team Providers Name Role Phone Shane Abel Provider Role Unavailable Allergies No Known Allergies Problems Problem Type Condition Code Onset Dates Condition Status Problem Angina Pectoris 413.9 Active Problem Dyslipidemia 272.4 Active Problem Coronary Artery Disease 414.01 Active Problem Hypertension I10 Active Problem Dyslipidemia E78.5 Active Problem CAD (coronary artery disease) I25.10 Active Problem Fatigue 780.79 Active Problem Hypertension 401.9 Active Problem Aortic valve insufficiency I35.1 Active Problem Aortic Valve Insufficiency 424.1 Active Problem Mitral Regurgitation 424.0 Active Problem s/p stenting, coronary V45.82 Active Problem Aortic regurgitation 424.1 Active Problem Dyslipidemia 272.4 Active Problem Tricuspid valve disorders, 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 Problem Hypertension, Unspecified 401.9 Active Medications No Known Medications Results No Known Results Summary Purpose eClinicalWorks Submission
[2017-05-06] MEDS ORDERED: NITROGLYCERIN 2% OINTMENT 1gm PACKET TP ONE (19:02)
[2017-05-06 21:04] VITALS: BMI 27.3
[2017-05-06] MEDS ORDERED: ACETAMINOPHEN 325 MG TABLET PO PRN (22:22)
[2017-05-06] MEDS ORDERED: ONDANSETRON 4 MG/2 ML INJECTION IVP PRN (22:23)
[2017-05-06] MEDS ORDERED: INSULIN GLARGINE 100unit/ml INJECTION SQ SCH (22:30)
[2017-05-07] MEDS: NITROGLYCERIN 2% OINTMENT 1gm PACKET TP SCH ×2 (00:32→06:46)
[2017-05-07] MEDS ORDERED: TRAMADOL 50 MG TABLET PO PRN (00:49)
[2017-05-07] MEDS ORDERED: LORATADINE 10 MG TABLET PO SCH ×2 (00:59→09:15)
--- NOTE | 2017-05-07 04:40 | Cardiology History & Physical ---
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 She has a history of CAD, 8 stents, HTN, DSLD, DM, TIA, GERD , hypothyroidism, non tropical sprue, and rheumatic fever as a child. She has had chest pain on and off for 50 yrs which started when her youngest son was little. She ingerited this from her Father. Her chest pain occurs every several months in clusters on which the episodes of chest pain increase in frequency and intensity until something breaks the cycle. A heart cath always breaks the cycle. She has had 8 coronary stents in the past. Looking in [facility] records: 2010 stents to the marginal [address] Campbell 2012 she had a heart cath but no PCI needed. 08/2013 stent to the LAD by Dr. Leroy. 10/2013 heart cath and no PCI. 03/2014 heart cath and no PCI. 10/2014 heart cath on no PCI. 07/2016 was her last heart cath by Dr. Smith: EF 55-60%, no gradient across the valve, LVEDP 13. LM normal, LAD patent stent, left circ patent stent, first diagonal 40-50% stenosis, RCA with patent stent with mid 40% stenosis. She saw Dr. Leroy for years until he retired. Now she follows with Dr. Zapata and has an appt in 03/2017 with her. For years she took Procardia which was changed to amlodipine recently and it helped. The amlodipine was increased from 5mg daily to 10mg daily at one time. She took 5mg x2. When she had it renewed she was sent with amlodipine 10mg which she was not aware of and cont to take amlodipine 2tabs daily. But she was taking amlodipine 20mg daily. It made her feel foggy and she could hardly function. . She is now on amlodipine 5mg daily and this works for her. When she starts a cycle of chest pain, she she follows a protocol: She puts on her O2. She takes a Ntg spray. She has taken up to 27 Ntg before. She takes a Claritin daily and takes an extra one this is because Dr. Leroy found in a study that pts that have Prinzmetal angina have a histamine release therefore she takes an extra Claritin. And she will rest and sometimes the chest pain is relieved. Yesterday after eating supper, she developed chest pain across her upper chest, she was a little SOB and she becomes wiped out. She took a Pepcid and Tums which did not help. She rested. The chest pain was constant and worsening, therefore she came into [facility] ER. In ER ECG: SR, no ST changes. Trop negative. She was given ASA, and Ntg sl x2 and placed ntg paste on her for total relief. Dr. Ruiz was contacted and admitted pt as OBS. nelly she denies chest pain, SOB, palpitations, lightheadedness, cough or cold. She denies N/V/abdominal pain or feeling sick. Review of Systems - Constitutional Constitutional: Present: fatigue, malaise. Absent: chills - EENMT Eyes: Absent: change in vision Mouth/Throat: Absent: sore throat - Cardiovascular Cardiovascular: Present: chest pain, hx of rheumatic fever. Absent: palpitations, syncope, dyspnea on exertion, orthopnea, edema Rhythm: Present: regular rhythm Vascular: Absent: pallor of an extermity, pedal edema - Respiratory Respiratory: Absent: cough, dyspnea, dyspnea on exertion - Gastrointestinal Gastrointestinal: Absent: abdominal pain, diarrhea, nausea - Genitourinary Genitourinary: Absent: flank pain - Musculoskeletal Musculoskeletal: Absent: back pain - Neurological Neurological: Absent: dizziness, headache(s), weakness - Psychiatric Psychiatric: Absent: anxiety, depression - Endocrine Endocrine: Absent: cold intolerance, heat intolerance, palpitations - Hematologic/Lymphatic Hematologic/Lymphatic: Absent: easy bleeding PFS Patient Stated Medical History Transient Ischemic Attacks ( Yes TIA) Cataracts Yes Hypertension Yes Other Cardiology Yes: coronary artery spasm, prietzmetals angina Other Respiratory Yes: uses oxygen prn Diabetes Mellitus Type 2 Yes Gastroesophageal Reflux Yes Disease Post Menopausal Yes CAD, Hx of 8 stents. Surgical History: Hysterectomy Family History: Father had Printzmetal and of CKD and HF. Daughter and son have it too. - Social History Smoking status: Never smoker Substance use type: does not use Alcohol intake frequency: does not drink Housing: house Household members: spouse Current occupational status: retired Current residence: Apartment/Private Home Social history: she lives in own home and does her own chores. Medications Home Medications Medication Instructions Recorded Confirmed Type Aspirin 81 mg PO DAILY #0 03/21/16 05/06/17 History Clopidogrel Bisulfate [Plavix] 75 mg PO DAILY #0 03/21/16 05/06/17 History Gemfibrozil 600 mg PO DAILY #0 03/21/16 05/06/17 History Levothyroxine Sodium 88 mcg PO DAILY #0 03/21/16 05/06/17 History Loratadine 10 mg PO DAILY #0 03/21/16 05/06/17 History Nitroglycerin 1 spray BUC PRN #0 07/02/16 05/06/17 History Amlodipine [Norvasc] 10 mg PO DAILY 02/04/17 05/06/17 History Biotin 1 mg PO DAILY 02/04/17 05/06/17 History Metformin [Glucophage] 1,000 mg PO BIDWM 02/04/17 05/06/17 History Multivitamin [One Daily 1 each PO DAILY 02/04/17 05/06/17 History Multivitamin] Spironolactone [Aldactone] 50 mg PO DAILY 02/04/17 05/06/17 History Ascorbic Acid 500 mg PO DAILY 05/06/17 05/06/17 History Cholecalciferol [Vit. D-3] 1,000 units PO DAILY 05/06/17 05/06/17 History Famotidine 10 mg PO DAILY 05/06/17 05/06/17 History Insulin Glargine,Hum.rec.anlog 19 unit SUB-Q HS 05/06/17 05/06/17 History [Lantus Solostar] LORazepam [Ativan] 0.5 mg PO PRN PRN 05/06/17 05/06/17 History Magnesium Chloride [Slo Mag] 2 tab PO DAILY 05/06/17 05/06/17 History Nitroglycerin [Nitroglycerin Patch] 0.6 mg TD DAILY 05/06/17 05/06/17 History Tramadol [Ultram] 50 mg PO Q4HR 05/06/17 05/06/17 History Allergies Allergy/AdvReac Type Severity Reaction Status Date / Time propranolol Allergy Unknown Verified 05/06/17 20:49 Vpgemoo-Tdh-Fop Reductase Allergy Unknown Verified 05/06/17 20:49 Inhibitor gluten AdvReac Intermediate "My body Verified 05/06/17 20:49 doesn't handle it well if I have too much" Exam Vital signs: Temperature 96.8 F 05/06/17 23:46 Pulse Rate 49 L 05/07/17 01:46 Respiratory Rate 16 05/06/17 23:46 Blood Pressure 119/57 05/07/17 00:55 Pulse Oximetry 99 05/07/17 00:55 - Constitutional no acute distress, well nourished, well developed, cooperative - Routine HEENT Exam Head: Present: normocephalic, atraumatic Eye: Present: normal accommodation ENT: Present: mucous membranes moist, dentition normal Nose: moist mucous membranes - Routine Neck Exam Absent: JVD, carotid bruit - Routine Chest/Breast/Axilla Exam Chest wall: Absent: tenderness - Routine Respiratory Exam Present: CTA bilaterally - Routine Cardiovascular Exam Present: RRR, murmur. Absent: JVD - Routine Abdominal Exam Present: soft, non tender - Routine Extremities Exam Present: no edema, pulses intact - Routine Neurological Exam Present: alert, oriented X3, moving all extremities, hearing grossly intact, normal speech - Routine Psychiatric Exam Present: normal affect, normal thought process, cooperative, good insight, good judgment Results 05/06/17 19:04 05/06/17 19:04 Cardiac Enzymes 05/07/17 Range/Units 00:41 Troponin I < 0.012 (0-0.12) ng/ml Intake and Output 05/06/17 05/06/17 05/07/17 14:59 22:59 06:59 Other: # Voids 1 Weight 149 lb 14.629 oz Patient Weight 05/07/17 06:59 Weight 149 lb 14.629 oz Laboratory Results - last 24 hr 05/06/17 05/06/17 05/06/17 19:04 19:04 21:53 WBC 8.3 RBC 4.90 Hgb 13.5 Hct 41.8 MCV 85.3 MCH 27.6 MCHC 32.3 RDW Std Deviation 40.5 Plt Count 432 H MPV 10.2 Immature Gran % (Auto) 0.1 Neut % (Auto) 47.9 Lymph % (Auto) 38.4 [place] % (Auto) 9.9 H Eos % (Auto) 2.7 Baso % (Auto) 1.0 Neut # 4.0 Lymph # 3.2 [place] # 0.8 Eos # 0.2 Baso # 0.1 Abs Immat Gran (auto) 0.01 Turbidity < 20 Sodium 143 Potassium 4.2 Chloride 100 Carbon Dioxide 29 Anion Gap 14 BUN 19.0 H Creatinine 0.8 GFR Calculation 68 BUN/Creatinine Ratio 24 Glucose 198 H Glucometer 148 Calculated Osmolality 283 H Calcium 10.8 H Total Bilirubin 0.60 Conjugated Bilirubin 0.00 Unconjugated Bilirubin 0.10 Icterus Index < 2 AST 18 ALT 31 Alkaline Phosphatase 81 Troponin I < 0.012 Total Protein 8.6 H Albumin 4.9 Globulin 3.7 H Albumin/Globulin Ratio 1.3 Specimen Hemolysis < 15 - Imaging and Cardiology Imaging & Cardiology Narrative: 07/[address] Ruiz in [facility] 1. Normal LV systolic function with ejection fraction of 50%-55%. 2. Aortic sclerosis with mild aortic insufficiency. 3. Mild tricuspid regurgitation with mild pulmonary hypertension with estimated pulmonary artery systolic pressure of 36. 4. Mild pulmonary insufficiency. 5. Mild mitral regurgitation with mitral annulus calcification. - EKG Interpretation EKG: sinus rhythm (with 3 PVC's ), no acute changes Hospital Course This is a general summary of the patient's hospital course. For more details refer to the complete medical record. Assessment and Plan (1) Prinzmetal's angina Status: Acute Trop x2 negative. ECG: SR, no ST changes. Will check serial trop. Repeat ECG. Her chest pain was relieved with Ntg in ER. She denies any further chest pain. Cont all same home meds including amlodipine 10mg daily as listed as home meds. The amlodipine may help with possible spasms. Ntg prn. She has tried Ranexa and it did not work for her. (2) CAD (coronary artery disease) Status: Acute Hx of 8 stents. Last stent in 2013. cont Plavix and ASA. she is intolerant of statins. I asked her if she has use Repatha. - she will discuss with Dr. Bob next office visit. Her last 2 heart caths were in [facility]. The heart cath reports are in the paper chart. (3) HTN (hypertension) Status: Acute (4) Hyperlipemia Status: Acute Well controlled. cont amlodipine (5) Diabetes mellitus Status: Acute FBS and 2 hr pc. Cont home meds. (6) GERD (gastroesophageal reflux disease) Status: Acute cont pepcid. - Attestation Attestation Narrative: 05/08/17 13:34 Recommendation After examining the patient I agree with the above assessment. I am involved in the formulation of the patient's plan of care. Sepsis Assessment - Evaluation Sepsis screening result: No Definite Risk
[2017-05-07] MEDS ORDERED: LORazepam 0.5 MG TABLET PO PRN (06:23)
[2017-05-07] MEDS ORDERED: NITROGLYCERIN 0.4 MG SUBLINGUAL TABLET SL PRN (06:30)
[2017-05-07] MEDS: SALINE FLUSH 10ml SYRINGE IVF PRN (06:46)
[2017-05-07] MEDS ORDERED: LEVOTHYROXINE 88 MCG TABLET PO SCH (07:30)
[2017-05-07] MEDS ORDERED: SPIRONOLACTONE 50 MG TABLET PO SCH (09:00)
[2017-05-07] MEDS ORDERED: GEMFIBROZIL 600 MG TABLET PO SCH (09:00)
[2017-05-07] MEDS ORDERED: AMLODIPINE 10 MG TABLET PO SCH (09:00)
[2017-05-07] MEDS ORDERED: ASCORBIC ACID 500 MG TABLET PO SCH (09:00)
[2017-05-07] MEDS ORDERED: ASPIRIN 81 MG CHEWABLE TABLET PO SCH (09:00)
[2017-05-07] MEDS ORDERED: BIOTIN 1 MG PO SCH (09:00)
[2017-05-07] MEDS ORDERED: CLOPIDOGREL 75 MG TABLET PO SCH (09:00)
[2017-05-07] MEDS ORDERED: MULTI-VITAMIN PLAIN TABLET PO SCH (09:00)
[2017-05-07] MEDS ORDERED: MAGNESIUM CHLORIDE 64 MG PO SCH (09:00)
[2017-05-07] MEDS ORDERED: [UNRECOGNIZED DRUG - OTHER] PO SCH ×2 (09:15→21:00)
[2017-05-07] MEDS: TRAMADOL 50 MG TABLET PO SCH ×3 (09:53→16:33)
[2017-05-07] MEDS: METFORMIN 500 MG TABLET PO SCH ×2 (09:53→16:36)
[2017-05-07] MEDS ORDERED: NITROGLYCERIN 2% OINTMENT 1gm PACKET TP SCH (13:00)
[2017-05-07 15:07] VITALS: BP 117/60; RESP 16; TEMP 96.4; O2SAT 96
[2017-05-07 17:15] VITALS: PULSE 53
--- NOTE | 2017-05-07 17:43 | Discharge Summary ---
<Frida Goncalves Mary - Last Filed: 05/07/17 17:40> Discharge Information Date of admission: 05/06/17 20:15 Anticipated date of discharge: 05/07/17 Attending Physician: Jerry Ruiz MD Primary care physician: Moose Smith MD - Laboratory Labs: Abnormal Lab Results 05/06/17 05/06/17 05/06/17 19:04 19:04 21:53 WBC 8.3 RBC 4.90 Hgb 13.5 Hct 41.8 MCV 85.3 MCH 27.6 MCHC 32.3 RDW Std Deviation 40.5 Plt Count 432 H MPV 10.2 Immature Gran % (Auto) 0.1 Neut % (Auto) 47.9 Lymph % (Auto) 38.4 [place] % (Auto) 9.9 H Eos % (Auto) 2.7 Baso % (Auto) 1.0 Neut # 4.0 Lymph # 3.2 [place] # 0.8 Eos # 0.2 Baso # 0.1 Abs Immat Gran (auto) 0.01 Turbidity < 20 Sodium 143 Potassium 4.2 Chloride 100 Carbon Dioxide 29 Anion Gap 14 BUN 19.0 H Creatinine 0.8 GFR Calculation 68 BUN/Creatinine Ratio 24 Glucose 198 H Glucometer 148 Calculated Osmolality 283 H Calcium 10.8 H Total Bilirubin 0.60 Conjugated Bilirubin 0.00 Unconjugated Bilirubin 0.10 Icterus Index < 2 AST 18 ALT 31 Alkaline Phosphatase 81 Troponin I < 0.012 Total Protein 8.6 H Albumin 4.9 Globulin 3.7 H Albumin/Globulin Ratio 1.3 Specimen Hemolysis < 15 05/07/17 05/07/17 05/07/17 00:41 06:34 07:16 WBC RBC Hgb Hct MCV MCH MCHC RDW Std Deviation Plt Count MPV Immature Gran % (Auto) Neut % (Auto) Lymph % (Auto) [place] % (Auto) Eos % (Auto) Baso % (Auto) Neut # Lymph # [place] # Eos # Baso # Abs Immat Gran (auto) Turbidity Sodium Potassium Chloride Carbon Dioxide Anion Gap BUN Creatinine GFR Calculation BUN/Creatinine Ratio Glucose Glucometer 102 Calculated Osmolality Calcium Total Bilirubin Conjugated Bilirubin Unconjugated Bilirubin Icterus Index AST ALT Alkaline Phosphatase Troponin I < 0.012 < 0.012 Total Protein Albumin Globulin Albumin/Globulin Ratio Specimen Hemolysis < 15 < 15 05/07/17 11:06 WBC RBC Hgb Hct MCV MCH MCHC RDW Std Deviation Plt Count MPV Immature Gran % (Auto) Neut % (Auto) Lymph % (Auto) [place] % (Auto) Eos % (Auto) Baso % (Auto) Neut # Lymph # [place] # Eos # Baso # Abs Immat Gran (auto) Turbidity Sodium Potassium Chloride Carbon Dioxide Anion Gap BUN Creatinine GFR Calculation BUN/Creatinine Ratio Glucose Glucometer 192 Calculated Osmolality Calcium Total Bilirubin Conjugated Bilirubin Unconjugated Bilirubin Icterus Index AST ALT Alkaline Phosphatase Troponin I Total Protein Albumin Globulin Albumin/Globulin Ratio Specimen Hemolysis History of Present Illness HPI: This is an 86 year old patient who has 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 She has a history of CAD, 8 stents, HTN, DSLD, DM, TIA, GERD , hypothyroidism, non tropical sprue, and rheumatic fever as a child. She has had chest pain on and off for 50 yrs which started when her youngest son was little. She ingerited this from her Father. Her chest pain occurs every several months in clusters on which the episodes of chest pain increase in frequency and intensity until something breaks the cycle. A heart cath always breaks the cycle. She has had 8 coronary stents in the past. Looking in [facility] records: 2010 stents to the marginal [address] Campbell 2012 she had a heart cath but no PCI needed. 08/2013 stent to the LAD by Dr. Leroy. 10/2013 heart cath and no PCI. 03/2014 heart cath and no PCI. 10/2014 heart cath on no PCI. 07/2016 was her last heart cath by Dr. Smith: EF 55-60%, no gradient across the valve, LVEDP 13. LM normal, LAD patent stent, left circ patent stent, first diagonal 40-50% stenosis, RCA with patent stent with mid 40% stenosis. She saw Dr. Leroy for years until he retired. Now she follows with Dr. Zapata and has an appt in 03/2017 with her. For years she took Procardia which was changed to amlodipine recently and it helped. The amlodipine was increased from 5mg daily to 10mg daily at one time. She took 5mg x2. When she had it renewed she was sent with amlodipine 10mg which she was not aware of and cont to take amlodipine 2tabs daily. But she was taking amlodipine 20mg daily. It made her feel foggy and she could hardly function. . She is now on amlodipine 5mg daily and this works for her. When she starts a cycle of chest pain, she she follows a protocol: She puts on her O2. She takes a Ntg spray. She has taken up to 27 Ntg before. She takes a Claritin daily and takes an extra one this is because Dr. Leroy found in a study that pts that have Prinzmetal angina have a histamine release therefore she takes an extra Claritin. And she will rest and sometimes the chest pain is relieved. Yesterday after eating supper, she developed chest pain across her upper chest, she was a little SOB and she becomes wiped out. She took a Pepcid and Tums which did not help. She rested. The chest pain was constant and worsening, therefore she came into [facility] ER. In ER ECG: SR, no ST changes. Trop negative. She was given ASA, and Ntg sl x2 and placed ntg paste on her for total relief. Dr. Ruiz was contacted and admitted pt as OBS. nelly she denies chest pain, SOB, palpitations, lightheadedness, cough or cold. She denies N/V/abdominal pain or feeling sick. Hospital Course This is a general summary of the patient's hospital course. For more details refer to the complete medical record. Time spent with patient: less than 15 minutes DVT Prophylaxis: Lovenox Exam Vital signs: Temperature 96.4 F L 05/07/17 15:05 Pulse Rate 53 L 05/07/17 16:00 Respiratory Rate 16 05/07/17 15:05 Blood Pressure 117/60 05/07/17 15:05 Pulse Oximetry 96 05/07/17 15:05 - Constitutional no acute distress, well nourished, well developed, cooperative - Routine HEENT Exam Head: Present: normocephalic ENT: Present: mucous membranes moist - Routine Neck Exam Absent: JVD, carotid bruit - Routine Chest/Breast/Axilla Exam Chest wall: Absent: tenderness, pacemaker - Routine Respiratory Exam Present: CTA bilaterally. Absent: rales, crackles - Routine Cardiovascular Exam Present: RRR, murmur (III/) - Routine Abdominal Exam Present: soft, normoactive bowel sounds - Routine Extremities Exam Present: no edema - Routine Skin Exam Present: intact, dry, warm - Routine Neurological Exam Present: alert, oriented X3 - Routine Psychiatric Exam Present: normal affect, normal thought process Results 05/06/17 19:04 05/06/17 19:04 Cardiac Enzymes 05/07/17 05/07/17 Range/Units 00:41 07:16 Troponin I < 0.012 < 0.012 (0-0.12) ng/ml Intake and Output 05/07/17 05/07/17 05/07/17 06:59 14:59 22:59 Intake Total 150 / 150 800 / 800 Balance 150 / 150 800 / 800 Intake: Oral 150 / 150 800 / 800 Other: Urine Appearance Clear Urine Color Yellow Urine Odor Normal # Voids 1 1 Weight 147 lb 14.883 oz Patient Weight 05/08/17 06:59 Weight 147 lb 14.883 oz - Imaging and Cardiology EKG results: image reviewed Discharge Plan - Med Rec/Dispo Truv Instructions: Angina (GEN) Additional Instructions: Follow up with your Plastic Manager Prescriptions: Continue Levothyroxine Sodium 88 mcg PO DAILY #0 Clopidogrel Bisulfate [Plavix] 75 mg PO DAILY #0 Loratadine 10 mg PO DAILY #0 Biotin 1 mg PO DAILY Amlodipine [Norvasc] 10 mg PO DAILY LORazepam [Ativan] 0.5 mg PO PRN PRN PRN Reason: Anxiety Famotidine 10 mg PO DAILY Cholecalciferol [Vit. D-3] 1,000 units PO DAILY Gemfibrozil 600 mg PO DAILY #0 Aspirin 81 mg PO DAILY #0 Nitroglycerin 1 spray BUC PRN #0 Metformin [Glucophage] 1,000 mg PO BIDWM Spironolactone [Aldactone] 50 mg PO DAILY Multivitamin [One Daily Multivitamin] 1 each PO DAILY Magnesium Chloride [Slo Mag] 2 tab PO DAILY Nitroglycerin [Nitroglycerin Patch] 0.6 mg TD DAILY Tramadol [Ultram] 50 mg PO Q4HR Ascorbic Acid 500 mg PO DAILY Insulin Glargine,Hum.rec.anlog [Lantus Solostar] 19 unit SUB-Q HS - Disposition 01 Discharged Home, Self-Care <Jerry Ruiz - Last Filed: 05/08/17 13:38> Discharge Information Date of admission: 05/06/17 20:15 Attending Physician: Jerry Ruiz MD Primary care physician: Moose Smith MD Hospital Course This is a general summary of the patient's hospital course. For more details refer to the complete medical record. Exam Vital signs: Temperature 96.4 F L 05/07/17 15:05 Pulse Rate 53 L 05/07/17 16:00 Respiratory Rate 16 05/07/17 15:05 Blood Pressure 117/60 05/07/17 15:05 Pulse Oximetry 96 05/07/17 15:05 Results 05/06/17 19:04 05/06/17 19:04 Discharge Plan - Med Rec/Dispo - Attestation Attestation Narrative: 05/08/17 13:38 Recommendation After examining the patient I agree with the above assessment. I am involved in the formulation of the patient's plan of care.
[2017-05-07] MEDS ORDERED: FAMOTIDINE 10 MG TABLET PO SCH (21:00)
[2017-05-07] MEDS ORDERED: INSULIN GLARGINE 100unit/ml INJECTION SQ SCH (21:00)
== END 2017-05-07 18:30 | disposition home or self-care (01) ==
LOC: ED 18:33 → MED 18:33
PROVIDERS: ADMIT Internal Medicine Cardiovascular Disease; ATTEND Internal Medicine Cardiovascular Disease

== ENCOUNTER 2018-01-03 01:32 | Inpatient (IN) ==
[2018-01-03] MEDS ORDERED: DEXTROSE 50% SYRINGE 50ml (1 AMP) IVP PRN (14:48)
--- NOTE | 2018-01-03 14:56 | Consult Note ---
Consult Information - Data of Consult Requesting Physician: Alex Wylie MD Primary Care Provider: MD Moose Barnhart MD Family Provider: Moose Smith MD - Consult Narrative Reason for consult: Medical managment of DM, HTN, HLP, Hypothroidism History of present illness: 87y/o pleasant female with CAD, VHD, DM, HTN, HLP, h/o TIA, GERD underwent HC with 2 stents to RCA about one month ago and then underwent a TAVR Thursday at [facility]. When she woke up after surgery she could not use her left arm. Her left leg was weak. A stroke alert was called and a stroke work up was done. She reports that the MRI did not show evidence of an acute stroke but only an old one. There is no reports of an MRI nor is there any mention of a MRI being done. Her left sided weakness persisted and she was referred here for rehabilitation. When seen by me this afternoon she's resting comfortably. She denies any complaints except for her left-sided weakness. She denies fever or chills. She denies any lightheadedness or dizziness. She denies headache. She denies any issues with her visual acuity. She denies any memory deficits or word finding difficulties. She denies shortness of breath, cough or sputum production. She denies palpitations. She denies any chest pain, pressure or tightness. She denies any nausea, vomiting, diarrhea, constipation, black tarry stools or bloody stools. She denies any problems with urination. She has not noted any lower extremity edema. Past Medical History Medical History Updates: Significant coronary history. Multiple stent placements. rheumatic fever at age 18. valvular heart disease including aortic stenosis. hypertension. dyslipidemia. type II diabetes. hypothyroidism. gastroesophageal reflux disease. history of TIA. history of Prizmetals angina. nontropical sprue. incidental find of liver lesion on CT scan prior to TAVR, recommend repeat scan in 6 months Surgical History: Hysterectomy. multiple heart caths with multiple stents. stents to OM1 and OM2 in 2010. stent to LAD in 2013. 2 stents to right coronary artery 2018. cholecystectomy. right rotator cuff repair. tonsillectomy and adenoidectomy. bilateral cataract surgery. 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) Current residence: Apartment/Private Home Social history: Prior to surgery patient walked without assist and did all ADLs Review of Systems Review of systems: All 14 point review of systems were reviewed and were negative except as noted in the history of present illness Medications Home Medications Medication Instructions Recorded Confirmed Type Aspirin 81 mg PO DAILY #0 03/21/16 01/03/18 History Clopidogrel Bisulfate [Plavix] 75 mg PO DAILY #0 03/21/16 05/06/17 History Gemfibrozil 600 mg PO DAILY #0 03/21/16 01/03/18 History Levothyroxine Sodium 88 mcg PO DAILY #0 03/21/16 01/03/18 History Loratadine 10 mg PO HS #0 03/21/16 01/03/18 History Amlodipine [Norvasc] 10 mg PO HS 02/04/17 01/03/18 History Metformin [Glucophage] 1,000 mg PO BIDWM 02/04/17 01/03/18 History Insulin Glargine,Hum.rec.anlog 19 unit SQ HS 05/06/17 01/03/18 History [Lantus Solostar] Magnesium Chloride [Slo Mag] 2 tab PO DAILY 05/06/17 01/03/18 History Acetaminophen [Tylenol] 650 mg PO Q4HPRN PRN 01/03/18 01/03/18 History Arginine [l-Arginine] 500 mg PO DAILY 01/03/18 01/03/18 History Biotin 5 mg PO DAILY 01/03/18 01/03/18 History Spironolactone [Aldactone 25 mg] 25 mg PO DAILY 01/03/18 01/03/18 History levOCARNitine tartrate 250 mg PO DAILY 01/03/18 01/03/18 History [l-Carnitine] Allergies Allergy/AdvReac Type Severity Reaction Status Date / Time propranolol Allergy Unknown Verified 05/06/17 20:49 Mohquio-Jzq-Wxi Reductase Allergy Unknown Verified 05/06/17 20:49 Inhibitor gluten AdvReac Intermediate "My body Verified 05/06/17 20:49 doesn't handle it well if I have too much" Exam Vital Signs: Temperature 98.2 F 01/03/18 11:08 Pulse Rate 68 01/03/18 11:08 Respiratory Rate 16 01/03/18 11:08 Blood Pressure 135/65 01/03/18 11:08 Pulse Oximetry 97 01/03/18 11:08 Height/Weight/BMI: Weight 67.5 kg Comments: Gen: alert and oriented. NAD Skin: warm and dry HEENT: NC/AT PERRL, EOMI, Sclera, and conjunctiva wnl, her left eye does not open as well as her right unknown if this is new since the acute neural changes. MMM, OP clear Neck: supple. No JVD, Carotids 2+ without bruits. Lungs: clear, No rales, rhonchi, wheezes. CV: regular. There is soft systolic murmur. No rub or gallop Abd: soft. NT/ND, +BS MS: No edema. Decreased strength on the left lower extremity with plantar and dorsiflexion and against resistance lifting off the bed. 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 The left arm is also week from shoulder left and push/pull. She does have difficulty doing the left heel to mancia and left finger to nose Neuro: left-sided weakness Psy: normal mood and affect Results - ABG Interpretation Additional comments: History of carotid ultrasound done on 11/16/17 shows no significant disease history of PFTs unremarkable 11/16/17 - Echocardiogram History of Echocardiogram: 11/24/17. EF 58%. mild tricuspid insufficiency, mild pneumonic insufficiency, mild mitral insufficiency Assessment and Plan Assessment and Plan: Acute neuro changes with left-sided weakness, left hand flaccidity without diagnosis of acute stroke -previous history of TIA's -on aspirin and Plavix -intolerant of statins -here for rehab valvular heart disease -history of rheumatic fever -severe aortic stenosis status post TAVR 12/29/17 coronary artery disease -history of multiple stents most recently approximately one month ago -aspirin and Plavix -intolerant of statins diabetes type II -Accu checks AC and HS -sliding scale insulin -home metformin and Lantus hypertension -amlodipine 10 mg daily -Aldactone 25 mg daily hypothyroidism -levothyroxine 88 g daily hypo Magnesemia -magnesium 64 mg daily dyslipidemia -on gemfibrozil 600 mg daily -intolerant to statins Prinzmetals angina -stable gastroesophageal reflux disease -PPI history of peripheral vascular disease -denies claudication -on aspirin and Plavix chronic right bundle branch block heart failure with preserved ejection fraction -not on any diuretic therapy -appears stable prophylaxis -PPI, ambulation GI Prophylaxis: Protonix Resuscitation Status: Do Not Resuscitate - Time spent with patient Time with patient PN: 25 minutes - Physician Narrative Narrative: Date: 01/03/18 Time: 1450 Hospital Course Summary Disclaimer: The visit summary below is not to be considered part of the above Progress Note.
[2018-01-03 15:11] VITALS: BMI 28.0
[2018-01-03] MEDS: METFORMIN 1,000 MG TABLET PO SCH (17:49)
[2018-01-03] MEDS: INSULIN GLARGINE 100unit/ml INJECTION SQ SCH (20:19)
[2018-01-03] MEDS: AMLODIPINE 10 MG TABLET PO SCH (20:20)
[2018-01-03] MEDS: LORATADINE 10 MG TABLET PO SCH (20:20)
[2018-01-03] MEDS: INSULIN ASPART 100unit/ml INJECTION SQ PRN (20:32)
[2018-01-04] MEDS: LEVOTHYROXINE 88 MCG TABLET PO SCH ×2 (05:24→06:09)
[2018-01-04] MEDS: ASPIRIN 81 MG CHEWABLE TABLET PO SCH (08:55)
[2018-01-04] MEDS: SPIRONOLACTONE 25 MG TABLET PO SCH (08:55)
[2018-01-04] MEDS: MAGNESIUM CHLORIDE 64 MG PO SCH (08:56)
[2018-01-04] MEDS: METFORMIN 1,000 MG TABLET PO SCH ×2 (08:56→18:21)
[2018-01-04] MEDS: CLOPIDOGREL 75 MG TABLET PO SCH (08:56)
[2018-01-04] MEDS: LEVOCARNITINE 1000 MG/10 ML PO SCH (08:57)
[2018-01-04] MEDS ORDERED: GEMFIBROZIL 600 MG TABLET PO SCH (09:00)
--- NOTE | 2018-01-04 09:35 | IRU 24Hr Post Admit Eval ---
24 Hr Post Admission Physical - Relevant Changes Relevant Changes: No Reviewed: I have reviewed the patient's information and concur with the finding and results of the pre-admission screen. Certification: I certify the patient for rehabilitation. - Patient Condition (1) Cerebrovascular accident (CVA) due to embolism of right middle cerebral artery Status: Acute Code(s): I63.411 - Cerebral infarction due to embolism of right middle cerebral artery Classification: Present on IRF Admission, IRF Tx That Should Address Diagnosis, Diagnosis Requiring Medical Follow Up (2) CAD (coronary artery disease) Status: Chronic Qualifiers: Coronary Disease-Associated Artery/Lesion type: [place] artery [place] vs. 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 use: with terminal block assembler use Diabetes mellitus complication status: with circulatory complication Diabetes mellitus complication detail: with other circulatory complications Qualified Code(s): E11.59 - Type 2 diabetes mellitus with other circulatory complications; Z79.4 - retirement (current) use of insulin Code(s): E11.9 - Type 2 diabetes mellitus without complications Classification: Present on IRF Admission, IRF Tx That Should Address Diagnosis, Diagnosis Requiring Medical Follow Up (4) HTN (hypertension) Status: Chronic Qualifiers: Hypertension type: essential hypertension Qualified Code(s): I10 - Essential (primary) hypertension Code(s): I10 - Essential (primary) hypertension Classification: Present on IRF Admission, IRF Tx That Should Address Diagnosis, Diagnosis Requiring Medical Follow Up (5) Diastolic CHF, acute on chronic Status: Chronic Code(s): I50.33 - Acute on chronic diastolic (congestive) heart failure Classification: Present on IRF Admission, IRF Tx That Should Address Diagnosis (6) S/p TAVR (transcatheter aortic valve replacement), bioprosthetic Status: Acute Code(s): Z95.3 - Presence of xenogenic heart valve Classification: Present on IRF Admission, IRF Tx That Should Address Diagnosis, Diagnosis Requiring Medical Follow Up - Prior Functional Status Lives With: Spouse Residence Type: Apartment/Private Home Assitive Devices: None Prior Functional Status: Indep. at home or school, Used no assistive device, Depend. w/ IADL - Current Functional Status Current Level of Function: The patient has severe weakness and lack of fine motor movement of her left hand. She has reduced strength in the left upper extremity and moderately reduced strength in the left lower extremity. She requires minimum assistance for eating and grooming but moderate assistance for bathing and upper body dressing. She continues to require maximum assistance for lower body dressing and moderate assistance for toileting and bed/chair/wheelchair transfers. She requires moderate assistance for walking with a rolling walker only 3 feet. Failed Alternative Therapy: Arrived from Acute Care Patient Requirements: The patient requires oversight by rehabilitation physician to manage their rehabilitation treatment plan and multidisciplinary approach to care that can only be provided in an IRF and requires a multidisciplinary approach to care, provided by professional PTs, OTs, STs, dieticians, RTs, rehabilitation nurses and is not available in lesser levels of care. Limitations Req: Mobility Impairment, ADL Impairment Physical Therapy Minutes: 90 Occupational Therapy Minutes: 90 Therapy: The patient is to receive therapy at least 5 days a week. - Complications/Comorbidities Impact on Functional Outcomes: Her recent left-sided weakness secondary to CVA will negatively impact her functional outcome. Barriers to Discharge: Weakness, Balance, Endurance - Plan to Avoid Complications Plan to Avoid Complications: The patient cannot receive this care in a lesser intensive setting such as Assisted or Outpatient Therapy due to the patient requiring the following : This patient recently underwent a TAVR procedure and developed sudden onset of left upper and lower extremity weakness in the recovery room. Imaging failed to reveal stroke although clinically this is consistent with an acute embolic CVA affecting the right hemisphere. She is at risk for further neurologic complications, uncontrolled blood sugar due to diabetes mellitus and use of insulin, and requires a multidisciplinary approach with a minimum of PT and OT and possibly speech therapy. She requires this due to her multiple medical problems including coronary artery disease as well as acute on chronic diastolic heart failure. This cannot be provided at a less intensive setting. .
[2018-01-04] MEDS: INSULIN ASPART 100unit/ml INJECTION SQ PRN ×3 (10:23→20:47)
--- NOTE | 2018-01-04 12:18 | IRU History & Physical Report ---
HPI IRU Date: Date: 01/04/18 Time: 1154 Chief complaint: My left side doesn't work well HPI: Ms. Miller is a very pleasant 87-year-old female referred by Dr. Jay Metz from [facility]. Her primary care doctor is Dr. Moose Smith in [place], [place]. The patient was interviewed on acute inpatient rehabilitation. She states that she has had a rather long history of worsening aortic stenosis. She is followed by Dr. Teagan Zapata, club waiter/waitress in [place] for the past 2-3 years according to the patient. About 2 months ago she awakened and had significant shortness of breath. She was severely fatigued. This kept happening about every morning. She saw Dr. Zapata about this and adjustments in medications was undertaken. She subsequently was taken by her to the emergency department at [facility] on Thursday (11/22/2017). She was taken there by her because of continued problems with shortness of breath. The patient underwent a cardiac catheterization and 2 additional cardiac stents were placed by Dr. Ann. The patient states that she has a total of [address] This did help her dyspnea quite a bit. However she was very weak and was at skilled care at [place] for about a week thereafter. Plans were made for her to be readmitted to the hospital in [place] on 2017 for elective placement of aortic valve. It was determined that the patient would best benefit from a TAVR procedure due to low flow low gradient severe aortic stenosis with aortic valve area estimated at 0.65 cm. She was admitted on that date and seen by , as well as Dr. Pfeiffer and Dr. Metz. Procedure was performed on 12/29/[address] Metz and Dr. Pfeiffer. Unfortunately, in the recovery room she was noted to have significant weakness of her left upper and lower extremities. Initially there was concern that this could be related to peripheral nerve compression versus acute CVA. Urgent CT scan without contrast was performed on 12/29/2017 demonstrating nonspecific low- density foci in the white matter representing age indeterminate microvascular changes. There was also a small focus of encephalomalacia within the right cerebellar hemisphere likely related to small focus of old infarction. No new infarction was seen and there was no bleeding identified. The patient underwent CT angiogram of the head and neck arteries. This failed to reveal any evidence of arterial occlusion or significant stenoses. The patient otherwise recovered without complication. She remains with significant weakness in the left upper extremity with markedly reduced fine motor movement of the left hand. In addition, the left leg is weaker than the right both upon flexion and extension at the hip as well as flexion and extension at the left knee and the ankle. The patient is right-handed. She lives at home at [place] with her in independent living. They do have 3 steps to get into their home but there are bilateral radials present. She does not use any assistive devices at home. Cardiac history is quite extensive with this patient. She has had recent placement of drug eluting stents at [facility] on 11/22/2017. She had a previous drug-eluting stent to mid LAD for non-STEMI in 2013 and prior catheterization with stent placement in 2010. Transthoracic echocardiogram performed on 11/24/2017 demonstrated at aortic valve area of 0.6 cm with ejection fraction of 58%. Aortic valve mean pressure gradient was 16.9 mmHg and maximum pressure gradient across the aortic valve was 29.4 mmHg with mild aortic valve insufficiency, trivial mitral valve insufficiency and trivial tricuspid valve insufficiency. Estimation of RVSP was 29.8 mmHg. The patient had a low flow, low gradient aortic stenosis and underwent dobutamine stress echo on 11/26/2017 confirming severe aortic stenosis with low flow low gradient but nevertheless significant aortic stenosis. On the dobutamine stress test her maximum gradient was 78 mmHg with a V-max of 4.42 m. Prior carotid Doppler done at [facility] 12/22/2017 showed no significant lesions in the extracranial carotid systems. The electrocardiogram 11/25/2017 demonstrated a right bundle branch block. Prior CT abdomen and pelvis did show a lesion in her liver pressure hematoma with recommendation to rescan this area in 6 months. 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 With regard to her diabetes, she reports diagnosis since age 41. She checks her blood sugars at home twice daily. Average fasting sugars are 150. A1c performed one or 2 months ago she recalls being around 10%. She uses long-acting Lantus insulin 19 units at bedtime daily plus metformin during the daytime and does not use any mealtime insulin. She does report occasional low blood sugars with significant symptomatology at times. The patient has sustained multiple functional deficits since her left sided weakness of arm and leg. Despite negative imaging results, it appears clinically as though she has suffered an acute cerebral vascular accident most likely secondary to embolic phenomenon into the right middle cerebral artery area. Functional deficits are primarily include markedly reduced fine motor movement of the left hand as well as weakness of the left arm, left face droop and weakness of the left lower extremity. Prior to this event, the patient was independent with all functional activities. She was able to do her own dressing and bathing and ambulate independently without use of assisted device. She did depend on her however for cooking over the last month or so. Current level of function is as follows: She requires minimum assistance for eating and grooming, moderate assistance for bathing and upper body dressing as well as toileting and bed/chair/wheelchair transfers as well as toilet transfers. She requires maximum assistance for lower body dressing, moderate assist for walking with a rolling walker only 3 feet. She has easy fatigability. Her predominant deficit is that of the left upper extremity with inability to make a fist nor to extend the left fingers adequately. She can move the left fingers but unable to provide much strength or purposeful motion of them. The following medical conditions are noted and require active monitoring and/or management: 1. Status post transcutaneous aortic valve replacement 2. History of aortic stenosis, severe and symptomatic 3. 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 4. Diabetes mellitus type 2, on long-term insulin, not controlled 5. Coronary artery disease status post numerous stent placements with most recent being in October 2017. She remains on Plavix in this regard. The following therapies will be needed: 1. Physical therapy: for transfers and ambulation and stairs. 2. Occupational therapy: for ADL's and transfers. 3. Speech therapy: To assess safety of swallowing as well as cognition/ linguistics 3. Medical management: for the above conditions. 4. 24 hour Rehabilitation Nursing to monitor and address the following: To closely monitor neurologic status and ensure no evidence of further neurologic decline, reduce fall risk, monitor blood pressures and blood sugars in view of her diabetes mellitus on insulin. [facility] Patient Stated Medical History Transient Ischemic Attacks ( Yes TIA) Cataracts Yes Angina Yes Hypertension Yes Other Cardiology Yes: coronary artery spasm, prietzmetals angina Other Respiratory Yes: uses oxygen prn Diabetes Mellitus Type 2 Yes Constipation No Gastroesophageal Reflux Yes Disease Hx Incontinence No Post Menopausal Yes Medical History Updates: Significant coronary history. Multiple stent placements. rheumatic fever at age 18. valvular heart disease including aortic stenosis. hypertension. dyslipidemia. type II diabetes. hypothyroidism. gastroesophageal reflux disease. history of TIA. history of Prizmetals angina. nontropical sprue. incidental find of liver lesion on CT scan prior to TAVR, recommend repeat scan in 6 months Surgical History: Hysterectomy. multiple heart caths with multiple stents. stents to OM1 and OM2 in 2010. stent to LAD in 2013. 2 stents to right coronary artery 2018. cholecystectomy. right rotator cuff repair. tonsillectomy and adenoidectomy. bilateral cataract surgery. bilateral eyelid lifts. TAVR 12/29/17 Family History: Patient's father age 68-69 with heart failure and kidney problems. Mother of old age at age 91. 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 Miller lives in [place] in independent living with her . 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 Her is a belly roller with the [employer]. They have 4 children. Review of Systems - Constitutional Constitutional: Absent: anorexia, chills, fatigue, fever(s), headache(s), lethargy, malaise, night sweats, weakness, weight gain, weight loss - EENMT Eyes: Absent: blurry vision, change in vision, diplopia Mouth/Throat: Absent: changes in swallowing, painful swallowing, change in taste , bleeding gums, change in voice - Cardiovascular Cardiovascular: Absent: chest pain, palpitations, syncope, dyspnea on exertion, orthopnea, edema, cyanosis, heart murmur Rhythm: Present: regular rhythm Vascular: Absent: intermittent claudication, pedal edema, unilateral swelling - Respiratory Respiratory: Present: cough (chronic, without sputum), dyspnea, dyspnea on exertion. Absent: hemoptysis, wheezing, pain on inspiration, chest congestion, excessive phlegm production - Gastrointestinal Gastrointestinal: Absent: abdominal pain, change in bowel habits, constipation, diarrhea, dyspepsia, dysphagia, early satiety, hematochezia, melena, nausea, vomiting - Musculoskeletal Musculoskeletal: Present: myalgias. Absent: abnormal gait, arthralgias, back pain, joint swelling, limited range of motion, muscle weakness - Integumentary/Breasts Integumentary: Absent: alopecia, erythema, lesions, pruritus, rash, jaundice - Neurological Neurological: Present: focal weakness (left hand and arm primarily, left leg less involved.), headache(s) (gets a sharp pain in left temporal area lasting only a few seconds at a time. Present a number of months if not longer. Rarely happens.). Absent: abnormal gait, abnormal movements, abnormal speech, confusion, convulsions, dizziness, frequent falls, loss of vision, memory loss, numbness, paresthesias, tremor(s) - Psychiatric Psychiatric: Absent: abnormal sleep pattern, anxiety, depression - Endocrine Endocrine: Absent: cold intolerance, flushing, heat intolerance, palpitations - Hematologic/Lymphatic Hematologic/Lymphatic: Absent: easy bleeding, easy bruising, lymphadenopathy - Allergic/Immunologic Allergic/Immunologic: Absent: urticaria Medications Home Medications Medication Instructions Recorded Confirmed Type Aspirin 81 mg PO DAILY #0 03/21/16 01/03/18 History Clopidogrel Bisulfate [Plavix] 75 mg PO DAILY #0 03/21/16 05/06/17 History Gemfibrozil 600 mg PO DAILY #0 03/21/16 01/03/18 History Levothyroxine Sodium 88 mcg PO DAILY #0 03/21/16 01/03/18 History Loratadine 10 mg PO HS #0 03/21/16 01/03/18 History Amlodipine [Norvasc] 10 mg PO HS 02/04/17 01/03/18 History Metformin [Glucophage] 1,000 mg PO BIDWM 02/04/17 01/03/18 History Insulin Glargine,Hum.rec.anlog 19 unit SQ HS 05/06/17 01/03/18 History [Lantus Solostar] Magnesium Chloride [Slo Mag] 2 tab PO DAILY 05/06/17 01/03/18 History Acetaminophen [Tylenol] 650 mg PO Q4HPRN PRN 01/03/18 01/03/18 History Arginine [l-Arginine] 500 mg PO DAILY 01/03/18 01/03/18 History Biotin 5 mg PO DAILY 01/03/18 01/03/18 History Spironolactone [Aldactone 25 mg] 25 mg PO DAILY 01/03/18 01/03/18 History levOCARNitine tartrate 250 mg PO DAILY 01/03/18 01/03/18 History [l-Carnitine] Allergies Allergy/AdvReac Type Severity Reaction Status Date / Time propranolol Allergy Unknown Verified 05/06/17 20:49 Jagpttw-Alm-Tdr Reductase Allergy Unknown Verified 05/06/17 20:49 Inhibitor tetanus and diphtheria Allergy "30 years Verified 01/03/18 19:03 toxoids ago" atenolol AdvReac Intermediate "blood Verified 01/03/18 19:03 pressure goes too low" gluten AdvReac Intermediate "My body Verified 05/06/17 20:49 doesn't handle it well if I have too much" simvastatin [From Zocor] AdvReac Intermediate "blood Verified 01/03/18 19:03 pressure goes too low" sotalol [From Betapace] AdvReac Intermediate Verified 01/03/18 19:06 atorvastatin [From Lipitor] AdvReac Verified 01/03/18 19:06 hydrochlorothiazide AdvReac "my blood Verified 01/03/18 19:08 [From Aldactazide] pressure gets too low" niacin AdvReac Verified 01/03/18 19:06 ranolazine [From Ranexa] AdvReac Anigina Verified 01/03/18 19:08 spironolactone AdvReac "my blood Verified 01/03/18 19:08 [From Aldactazide] pressure gets too low" Results IRU - Labs Labs: I reviewed extensive results from outside hospital. Exam Vital Signs: Temperature 97.8 F 01/04/18 07:36 Pulse Rate 62 01/04/18 07:36 Respiratory Rate 16 01/04/18 07:36 Blood Pressure 136/65 01/04/18 07:36 Pulse Oximetry 97 01/04/18 07:36 Height/Weight/BMI: Height 1.55 m Weight 67.5 kg Body Mass Index 28.0 - Constitutional Present: no acute distress, well nourished, well developed, average body habitus , cooperative - Routine HEENT Exam Head: Present: normocephalic, atraumatic. Absent: cushingoid faces, abrasion, laceration, hematoma Eye: Present: EOMI, PERRL. Absent: conjunctival icterus, scleral injection, periorbital swelling, nystagmus ENT: Present: mucous membranes moist, oropharynx clear. Absent: dentition normal (partial plates upper and lower.) Comments: Definite left face droop. - Routine Neck Exam Present: supple, full ROM, trachea midline. Absent: lymphadenopathy, thyromegaly, tenderness, swelling - Routine Chest/Breast/Axilla Exam Chest wall: Absent: tenderness, mass Axillae: Absent: lymphadenopathy, mass - Routine Respiratory Exam Present: CTA bilaterally. Absent: accessory muscle use, decreased breath sounds , prolonged expiratory phase, rales, respiratory distress, rhonchi, stridor, wheezes, crackles, distant breath sounds - Routine Cardiovascular Exam Present: RRR, S1, S2, no murmur. Absent: gallop, S3, S4, click, irregular rhythm - Routine Abdominal Exam Present: soft, normoactive bowel sounds, non distended, non tender. Absent: rebound, guarding, firm, rigid, organomegaly, mass, hernia, wound - Routine Extremities Exam Present: no edema, non tender, pulses intact, normal capillary refill. Absent: cyanosis, clubbing - Routine Back/Spine/Pelvis Exam Back/Spine: Present: full ROM. Absent: scoliosis, kyphosis - Routine Skin Exam Present: intact, dry, warm. Absent: cyanosis, erythema, pallor, mottling, petechiae, urticaria, lesions, jaundice - Routine Neurological Exam Present: alert, oriented X3, CN II-XII intact, motor deficit (left face droop, can move left fingers although cannot make a fist nor straighten them out completely. Markedly reduced fine motor movement left hand. Reduced flexion and extension at left elbow and left shoulder. Left leg strength at flexion and extension at left hip is markedly reduced compared to right. Extension and flexion at left knee reduced compared to right. Reasonable strength flexion and extension at left ankle although reduced compared to right.), moving all extremities, normal speech - Routine Psychiatric Exam Present: normal affect, normal thought process, cooperative, good insight, good judgment. Absent: depressed, anxious Sepsis Assessment - Evaluation Severe Sepsis: none seen IRU A/P (1) Cerebrovascular accident (CVA) due to embolism of right middle cerebral artery Current visit: Yes Status: Acute A multidisciplinary coordinated approach with physical therapy occupational therapy as well as speech assessment will be undertaken for this patient. She has suffered multiple functional deficits. Continue Plavix plus aspirin. (2) CAD (coronary artery disease) Qualifiers: Coronary Disease-Associated Artery/Lesion type: resighini artery [place] vs. transplanted heart: resighini heart Associated angina: without angina Qualified Code(s): I25.10 - Atherosclerotic heart disease of resighini coronary artery without angina pectoris Current visit: No Status: Chronic Patient is status post multiple stent placements. She will remain on Plavix. Consultation to cardiology will be undertaken if she develops further discomfort. 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 (4) HTN (hypertension) Qualifiers: Hypertension type: essential hypertension Qualified Code(s): I10 - Essential (primary) hypertension Current visit: No Status: Chronic (5) Diastolic CHF, acute on chronic Current visit: Yes Status: Chronic (6) S/p TAVR (transcatheter aortic valve replacement), bioprosthetic Current visit: Yes Status: Acute DVT Prophylaxis: SCD's, Lovenox Resuscitation Status: Do Not Resuscitate - Course Hospital Course: Alex Wylie MD: - Interventions to Obtain Goals PT Treatment Plan: Balance/Proprioception, Functional Activities, Gait Training , Patient/Family Education, Therapeutic Exercise Goals Progress/Modifications: This medically complex patient has suffered an acute CVA likely involving embolus into right middle cerebral artery area. Her primary functional deficit is that of left upper extremity weakness. However left leg is also weak. We'll ask speech therapy to assess swallowing and cognition/linguistic ability. The patient will be continued on Plavix and aspirin. We will monitor her cardiac status carefully as well as blood sugars. Hypoglycemic protocol will be instituted.
[2018-01-04] MEDS: POLYETHYL GLYCOL 3350 17gm PACKET PO SCH (12:19)
[2018-01-04] MEDS: ARGININE 500 MG PO SCH (13:43)
[2018-01-04] MEDS: BIOTIN 5 MG PO SCH (13:43)
[2018-01-04] MEDS: INSULIN GLARGINE 100unit/ml INJECTION SQ SCH (20:46)
[2018-01-04] MEDS: AMLODIPINE 10 MG TABLET PO SCH (20:48)
[2018-01-04] MEDS: SENNA + DOCUSATE TABLET PO SCH (20:48)
[2018-01-04] MEDS: ACETAMINOPHEN 325 MG TABLET PO PRN (20:49)
[2018-01-04] MEDS: LORATADINE 10 MG TABLET PO SCH (20:49)
[2018-01-05] MEDS: GEMFIBROZIL 600 MG TABLET PO SCH ×2 (06:01→08:44)
[2018-01-05] MEDS: LEVOTHYROXINE 88 MCG TABLET PO SCH (06:01)
[2018-01-05] MEDS: LEVOCARNITINE 1000 MG/10 ML PO SCH (08:41)
[2018-01-05] MEDS: SPIRONOLACTONE 25 MG TABLET PO SCH (08:42)
[2018-01-05] MEDS: METFORMIN 1,000 MG TABLET PO SCH ×2 (08:42→17:33)
[2018-01-05] MEDS: MAGNESIUM CHLORIDE 64 MG PO SCH (08:42)
[2018-01-05] MEDS: CLOPIDOGREL 75 MG TABLET PO SCH (08:42)
[2018-01-05] MEDS: POLYETHYL GLYCOL 3350 17gm PACKET PO SCH (08:43)
[2018-01-05] MEDS: SENNA + DOCUSATE TABLET PO SCH (08:44)
[2018-01-05] MEDS: ASPIRIN 81 MG CHEWABLE TABLET PO SCH (08:45)
[2018-01-05] MEDS: ARGININE 500 MG PO SCH (08:47)
[2018-01-05] MEDS: BIOTIN 5 MG PO SCH (08:47)
[2018-01-05] MEDS: INSULIN ASPART 100unit/ml INJECTION SQ PRN ×2 (11:12→14:33)
--- NOTE | 2018-01-05 11:32 | IRU Progress Note ---
- Subjective/Serverity of Illness Date: 01/05/18 Ms. Miller was interviewed and examined on acute inpatient rehabilitation. She is very cooperative with therapy. Her left hand which is been most severely affected by the stroke is beginning to move a bit more. She can make a better fist and can straighten her fingers a bit better than yesterday. She continues to have a left facial droop and weakness in the left lower extremity as well. She denies any chest pain. She does have history of recent stent placement. Her breathing is adequate and she denies overt shortness of breath although does have easy fatigability with therapy. Patient was evaluated by speech therapy and they do not believe they need to continue working with her at this time as she is doing well with both cognition , linguistics and swallowing. Update on medical issues were actively monitoring and managing as follows: 1. Status post transcutaneous aortic valve replacement: She denies any lightheadedness. She does have a faint heart murmur. Her rhythm sounds regular at the present time. She denies shortness of breath. 2. History of aortic stenosis, severe and symptomatic: At the present time this is resolved based on the presence of the aortic valve replacement. 3. 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 She continues to have the left face droop, left eyelid droop, left upper extremity weakness with particular weakness of the hand and fingers as well as left lower extremity weakness. She is ambulatory and she is cooperative with therapy. 4. Diabetes mellitus type 2, on long-term insulin, not controlled: Her blood sugars have remained elevated around 300. This morning they were down to 149. Management per hospitalist service. She remains on long-acting insulin and oral agents. 5. Coronary artery disease status post numerous stent placements with most recent being in October 2017. She denies any chest pain or shortness of breath. She remains on Plavix. No evidence of active bleeding. Exam Vital Signs: Temperature 97.8 F 01/05/18 07:00 Pulse Rate 76 01/05/18 07:00 Respiratory Rate 16 01/05/18 07:00 Blood Pressure 123/66 01/05/18 07:00 Pulse Oximetry 98 01/05/18 07:00 Height/Weight/BMI: Height 1.55 m Weight 67.5 kg Body Mass Index 28.0 - Constitutional Present: no acute distress, well nourished, well developed, cooperative - Routine HEENT Exam Eye: Present: EOMI, PERRL ENT: Present: mucous membranes moist, oropharynx clear - Routine Neck Exam Present: supple. Absent: carotid bruit - Routine Respiratory Exam Present: CTA bilaterally. Absent: wheezes, crackles - Routine Cardiovascular Exam Present: RRR, S1, S2, murmur (grade 1-2/6 second right interspace and somewhat along the left sternal border.). Absent: S3, S4 - Routine Abdominal Exam Present: soft, normoactive bowel sounds, non distended. Absent: tenderness - Routine Extremities Exam Present: no edema, normal capillary refill - Routine Skin Exam Present: dry, warm - Routine Neurological Exam Present: alert, oriented X3, motor deficit (continues to have weakness at the left shoulder, left elbow flexion and extension and left hand. She is able to make a better "fist" with flexion of the fingers and is able to extend fingers a bit better than yesterday. Left lower extremity is weak upon flexion at the hip and extension at the knee. It is particularly weak with regard to flexion at the left knee.). Absent: CN II-XII intact (left facial droop. Left eyelid somewhat ptotic. Left forehead does not raise as high as the right with wrinkling of forehead.) - Routine Psychiatric Exam Present: normal affect, normal thought process, cooperative, good insight, good judgment. Absent: anxious Results IRU - Labs Labs: Have reviewed chart information, other providers notes and laboratory data. IRU A/P (1) Cerebrovascular accident (CVA) due to embolism of right middle cerebral artery Current visit: Yes Status: Acute She has had mild improvement with regard to left hand movement and strength. However she continues to have significant weakness involving left upper extremity predominantly with less involvement of the left face and left lower extremity. She is cooperative with therapy and I would anticipate a good functional outcome. (2) CAD (coronary artery disease) Qualifiers: Coronary Disease-Associated Artery/Lesion type: [place] artery [place] vs. transplanted heart: [place] heart Associated angina: without angina Qualified Code(s): I25.10 - Atherosclerotic heart disease of [place] coronary artery without angina pectoris Current visit: No Status: Chronic She has had recent stent placements in October and remains on Plavix. She denies chest pain or shortness of breath but does have easy fatigability. 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 Management per hospitalist service. (4) HTN (hypertension) Qualifiers: Hypertension type: essential hypertension Qualified Code(s): I10 - Essential (primary) hypertension Current visit: No Status: Chronic Her blood pressures are well controlled at the present time. (5) Diastolic CHF, acute on chronic Current visit: Yes Status: Chronic (6) S/p TAVR (transcatheter aortic valve replacement), bioprosthetic Current visit: Yes Status: Acute Valvular function appears to be normal clinically. Denies lightheadedness. DVT Prophylaxis: SCD's, Lovenox Resuscitation Status: Do Not Resuscitate - Course Hospital Course: Alex Wylie MD: 01/05/18 11:38 Patient's movement of left hand is improved. Cooperative with therapy. Blood sugars are running a bit high. Blood pressure is good. Cardiovascular status appears to be stable. - Interventions to Obtain Goals PT Treatment Plan: Balance/Proprioception, Functional Activities, Gait Training , Patient/Family Education, Therapeutic Exercise OT Treatment Plan: ADL (Basic Care), Balance Training, Electrical Stimulation, IADL, Pt./Family Education, Ther. Exercise for ADL, UE Functional Training, Ultrasound Goals Progress/Modifications: This medically complex patient seems to be very cooperative and I would anticipate a good functional outcome. Her medical complexity emanates from her recent aortic valve replacement, recent cardiac stent placement, diastolic heart failure, and her diabetes. Her blood sugars are running a bit high and I will discuss this with the hospitalist service. While she is cooperative with therapy, she does have easy fatigability she states. Left upper extremity weakness is a major impediment along with her cardiovascular status with diastolic heart failure.Please note that the patient's individual plan of care was developed and documented today, requiring review of therapy notes, medical conditions and anticipated functional recovery. This required additional medical decision making with regard to interaction of the patient's medical issues with the anticipated functional recovery. Please see separate document
--- NOTE | 2018-01-05 11:42 | IRU Plan of Care ---
[facility] Overall Plan of Care - Date Date: 01/05/18 - Patient Impairments (1) Cerebrovascular accident (CVA) due to embolism of right middle cerebral artery Code(s): I63.411 - Cerebral infarction due to embolism of right middle cerebral artery Status: Acute Classification: Present on IRF Admission, IRF Tx That Should Address Diagnosis, Diagnosis Requiring Medical Follow Up (2) CAD (coronary artery disease) Qualifiers: Coronary Disease-Associated Artery/Lesion type: [place] artery [place] vs. 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 use: with intermediate teacher use Diabetes mellitus complication status: with circulatory complication Diabetes mellitus complication detail: with other circulatory complications Qualified Code(s): E11.59 - Type 2 diabetes mellitus with other circulatory complications; Z79.4 - [facility] (current) use of insulin Code(s): E11.9 - Type 2 diabetes mellitus without complications Status: Chronic Classification: Present on IRF Admission, IRF Tx That Should Address Diagnosis, Diagnosis Requiring Medical Follow Up (4) HTN (hypertension) Qualifiers: Hypertension type: essential hypertension Qualified Code(s): I10 - Essential (primary) hypertension Code(s): I10 - Essential (primary) hypertension Status: Chronic Classification: Present on IRF Admission, IRF Tx That Should Address Diagnosis, Diagnosis Requiring Medical Follow Up (5) Diastolic CHF, acute on chronic Code(s): I50.33 - Acute on chronic diastolic (congestive) heart failure Status : Chronic Classification: Present on IRF Admission, IRF Tx That Should Address Diagnosis (6) S/p TAVR (transcatheter aortic valve replacement), bioprosthetic Code(s): Z95.3 - Presence of xenogenic heart valve Status: Acute Classification: Present on IRF Admission, IRF Tx That Should Address Diagnosis, Diagnosis Requiring Medical Follow Up - Relevant Changes Relevant Changes: No Reviewed: I have reviewed the patient's information and concur with the finding and results of the pre-admission screen. Certification: I certify the patient for rehabilitation. - Medical Prognosis Medical Prognosis: Good Vital Signs: Last Vital Signs Temp 97.8 F 01/05/18 07:00 Pulse 76 01/05/18 07:00 Resp 16 01/05/18 07:00 BP 123/66 01/05/18 07:00 Pulse Ox 98 01/05/18 07:00 - Anticipated Interventions Anticipated Interventions: The patient requires inpatient IRF care for PT, OT, and/or ST for residuals remaining from acute embolic CVA resulting in muscular weakness and strength deficits. Strength Deficits: Left Upper Extremity, Left Lower Extremity - Current Functional Status Failed Alternative Therapy: Arrived from Acute Care Patient Requires: The patient requires oversight by rehabilitation physician to manage their rehabilitation treatment plan and multidisciplinary approach to care that can only be provided in an IRF and requires a multidisciplinary approach to care, provided by professional PTs, OTs, STs, rehabilitation nurses, and may require STs, dieticians, and RTS. This is not available in lesser levels of care. Physical Therapy Minutes: 90 Occupational Therapy Minutes: 90 Therapy: The patient is to receive therapy at least [address] Treatment Plan: Evaluation Only ST Treatment Plan Duration: N/A ST Treatment Plan Frequency: N/A - Anticipated LOS/Outcomes Anticipated Functional Outcome: The patient is anticipated to make excellent functional gains and be able to return to her home at modified independent level of functioning. It is anticipated that she will be able to perform her own ADLs at independent to modified independent level but will likely require assistance with IADLs. Efforts will be undertaken to minimize caregiver burden at the time of dismissal. It is anticipated that her blood sugars will be better controlled and her diastolic heart failure will be compensated. Anticipated Length of Stay (days): 14 Anticipated DC Destination: Home, Self Care, Home Health Service Home Safety Plan: The patient will be provided with the development of a Home Safety Plan for return to a home or home-like environment and and to ensure safety post discharge. - Plan to Avoid Complications Barriers to Attaining Goals: Weakness, Balance, Endurance Plan to Avoid Complications: The patient cannot receive this care in a lesser intensive setting such as [facility] or Outpatient Therapy due to the patient requiring the following : The patient requires a multidisciplinary approach with PT and OT as well as 24 rehabilitation nursing monitoring of her blood sugars, neurologic status and cardiac status in view of her recent aortic valve replacement and diastolic heart failure. She requires medical supervision in view of these multiple medical problems. .
[2018-01-05] MEDS ORDERED: SENNA + DOCUSATE TABLET PO PRN (14:04)
--- NOTE | 2018-01-05 14:05 | Progress Note ---
- Date 01/05/18 Subjective: F/U: left sided weakness, uncontrolled diabetes. Kat is seen today while working with therapy. She reports that therapy has been working her hard. She denies any current complaints or concerns. No chest pain, shortness of breath, abdominal pain, nausea, vomiting or dysuria. She does admit to frequent stools which she believes is from the stool softeners. She denies any fevers or chills and nursing. Her appetite is stable and urinary output is adequate. Blood sugars remain elevated, frequently requiring sliding scale insulin. Objective Vital signs: Temperature 97.8 F 01/05/18 07:00 Pulse Rate 76 01/05/18 07:00 Respiratory Rate 16 01/05/18 07:00 Blood Pressure 123/66 01/05/18 07:00 Pulse Oximetry 98 01/05/18 07:00 Height/Weight/BMI: Height 5 ft 1 in Weight 148 lb 12.992 oz Body Mass Index 28.0 Comments: Working with therapy in her room. - Constitutional Present: no acute distress, well nourished, well developed, cooperative - Routine HEENT Exam Head: Present: normocephalic, atraumatic Eye: Present: PERRL. Absent: conjunctival icterus ENT: Present: mucous membranes moist, oropharynx clear - Routine Respiratory Exam Present: CTA bilaterally. Absent: respiratory distress, wheezes - Routine Cardiovascular Exam Present: RRR, S1, S2, murmur - Routine Abdominal Exam Present: soft, normoactive bowel sounds, non distended, non tender - Routine Extremities Exam Present: edema (trace), non tender, pulses intact - Routine Back/Spine/Pelvis Exam Back/Spine: Present: full ROM. Absent: vertebral tenderness - Routine Musculoskeletal Exam Musculoskeletal: Present: no clubbing or cyanosis, moving extremities well - Routine Skin Exam Present: intact, dry, warm Comments: Afebrile. - Routine Neurological Exam Present: alert, oriented X3, moving all extremities, hearing grossly intact, normal speech - Routine Lymphatic Exam Lymphatic: Absent: lymphedema - Routine Psychiatric Exam Present: normal affect, cooperative Results - Labs CBC & Chem 7: 01/04/18 04:58 01/04/18 04:58 Assessment and Plan Assessment and Plan: Assessment: Acute neuro changes with left-sided weakness, left hand flaccidity without diagnosis of acute stroke Valvular heart disease Severe aortic stenosis status post TAVR 12/29/17 CAD with multiple stents placed. Diabetes mellitus, uncontrolled - recent A1c was 10%. Hypertension Hypothyroidism History of hypomagnesium Dyslipidemia Prinzmetal angina History of peripheral vascular disease Chronic right bundle branch block CHF - preserved EF Plan - 01/05/18: Continue therapies per Dr. Wylie. BGMs elevated (180-306). Continue home metformin and evening Lantus. Will start NovoLog 3 units at breakfast and dinner. Continue sliding scale insulin as needed and monitor blood sugars closely. May need additional insulin at lunch. Will adjust insulin dosages as indicated. Monitor closely for signs of hypoglycemia. Increased stools. Will decrease bowel motivation and monitor closely. Will recheck labs on 01/08 to monitor blood counts, electrolytes and renal function. DVT Prophylaxis: SCD's Resuscitation Status: Do Not Resuscitate - Time spent with patient Time with patient PN: 25 minutes - Physician Narrative Physician: Alcides Hunter MD Narrative: Date: 01/05/18 Time: 1401 Hospital Course Summary Disclaimer: The visit summary below is not to be considered part of the above Progress Note. Hospital Course: Plan - 01/05/18: Continue therapies per Dr. Wylie. BGMs elevated (180-306). Continue home metformin and evening Lantus. Will start NovoLog 3 units at breakfast and dinner. Continue sliding scale insulin as needed and monitor blood sugars closely. May need additional insulin at lunch. Will adjust insulin dosages as indicated. Monitor closely for signs of hypoglycemia. Increased stools. Will decrease bowel motivation and monitor closely. Will recheck labs on 01/08 to monitor blood counts, electrolytes and renal function.
--- NOTE | 2018-01-05 14:49 | Progress Note ---
Progress Note: Kat had an appointment with Dr. Metz at the [facility] in [place] this Thursday on January 08. I contacted his office. His nurse practitioner contacted me back. We made a new appointment for 01/15/2018 at 10 AM at the [facility] [place] [id number] in [place]. I also brought the nurse practitioner up-to-date on the patient's functional status. Patient was advised as well.
[2018-01-05] MEDS: INSULIN ASPART 100unit/ml INJECTION SQ SCH (17:34)
[2018-01-05] MEDS: AMLODIPINE 10 MG TABLET PO SCH (21:47)
[2018-01-05] MEDS: LORATADINE 10 MG TABLET PO SCH (21:47)
[2018-01-05] MEDS: INSULIN GLARGINE 100unit/ml INJECTION SQ SCH (21:47)
[2018-01-06] MEDS: ACETAMINOPHEN 325 MG TABLET PO PRN (00:52)
[2018-01-06] MEDS: GEMFIBROZIL 600 MG TABLET PO SCH ×2 (06:09→08:57)
[2018-01-06] MEDS: LEVOTHYROXINE 88 MCG TABLET PO SCH (06:09)
[2018-01-06] MEDS: NITROGLYCERIN 0.4 MG SUBLINGUAL TABLET SL PRN ×2 (07:55→08:55)
[2018-01-06] MEDS ORDERED: INSULIN ASPART 100unit/ml INJECTION SQ SCH (08:00)
--- NOTE | 2018-01-06 08:39 | Progress Note ---
- Date 01/06/18 Subjective: I was called to Moran's room this am b/c she was c/o chest pain. It woke her up from sleep around 0630. She described it as a pinching to her left anterior chest, nonreproducible. She thinks it went into her left arm but since her left arm is "" she wasn't sure. She denied any other symptoms such as SOA, diaphoresis, nausea, near syncope. Her O2 sat was 90% on room air and RN placed her on 2L. She was given NTG x1 and her pain decreased from 5 to 3 soon after, and by the time I arrived it was only a dull ache. Her SBP decreased from 140 to 110 mm Hg after the NTG. She has a hx of Prinzmetal's angina and has had this pain numerous times, but she was told that after TAVR she would never have it again. Objective Vital signs: Temperature 97.8 F 01/06/18 07:18 Pulse Rate 76 01/06/18 08:04 Respiratory Rate 16 01/06/18 07:18 Blood Pressure 109/61 01/06/18 08:04 Pulse Oximetry 96 01/06/18 08:04 Height/Weight/BMI: Height 1.55 m Weight 67.5 kg Body Mass Index 28.0 - Constitutional Present: no acute distress, well nourished, well developed - Routine HEENT Exam Head: Present: normocephalic Eye: Present: PERRL. Absent: conjunctival icterus, scleral injection ENT: Present: mucous membranes moist - Routine Respiratory Exam Present: CTA bilaterally - Routine Cardiovascular Exam Present: RRR, S1, S2, murmur - Routine Abdominal Exam Present: soft, normoactive bowel sounds, non distended, non tender - Routine Extremities Exam Present: pulses intact. Absent: edema - Routine Skin Exam Present: intact, dry, warm - Routine Neurological Exam Present: alert, oriented X3, motor deficit (LUE), vision grossly intact, hearing grossly intact, facial asymmetry (mild left droop) - Routine Psychiatric Exam Present: normal affect, normal thought process, cooperative Results - Labs CBC & Chem 7: 01/04/18 04:58 01/04/18 04:58 Assessment and Plan Assessment and Plan: Assessment: Acute neuro changes with left-sided weakness, left hand flaccidity without diagnosis of acute stroke Valvular heart disease Severe aortic stenosis status post TAVR 12/29/17 CAD with multiple stents placed. Diabetes mellitus, uncontrolled - recent A1c was 10%. Hypertension Hypothyroidism History of hypomagnesium Dyslipidemia Prinzmetal angina History of peripheral vascular disease Chronic right bundle branch block CHF - preserved EF Plan - 01/06/18: Chest pain consistent with prior hx of Prinzmetal's angina. Placed on tele; EKG and serial trop ordered. EKG reviewed, showing LBBB - records from [place] indicate RBBB but have no postop EKG for comparison. We were able to have EKGs from [place] faxed over - prior to sx she did not have LBBB but on 12/31/17 she had LBBB - comparing that EKG to current one they are very similar. We may also contact her handle attacher, Dr. Zapata at [facility]. Since her SBP decreased by 30 mm Hg after NTG x1 and later improved to 126. Later she developed jaw pain, also similar to pain she's had before - since EKG is unchanged will give additional NTG. Hyperglycemia typically occurs after breakfast and lunch. Increase breakfast insulin from 3U to 4U and add 2U of NovoLOG before lunch. Discussed with Dr. Hunter. Resuscitation Status: Do Not Resuscitate - Physician Narrative Narrative: Date: 01/06/18 Time: 0835 Hospital Course Summary Disclaimer: The visit summary below is not to be considered part of the above Progress Note. Hospital Course: Plan - 01/05/18: Continue therapies per Dr. Wylie. BGMs elevated (180-306). Continue home metformin and evening Lantus. Will start NovoLog 3 units at breakfast and dinner. Continue sliding scale insulin as needed and monitor blood sugars closely. May need additional insulin at lunch. Will adjust insulin dosages as indicated. Monitor closely for signs of hypoglycemia. Increased stools. Will decrease bowel motivation and monitor closely. Will recheck labs on 01/08 to monitor blood counts, electrolytes and renal function. 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 Placed on tele; EKG and serial trop ordered. EKG reviewed, showing LBBB - records from [place] indicate RBBB but have no postop EKG for comparison. We were able to have EKGs from [place] faxed over - prior to sx she did not have LBBB but on 12/31/17 she had LBBB - comparing that EKG to current one they are very similar. We may also contact her handle attacher, Dr. Zapata at [facility]. Since her SBP decreased by 30 mm Hg after NTG x1 and later improved to 126. Later she developed jaw pain, also similar to pain she's had before - since EKG is unchanged will give additional NTG. Hyperglycemia typically occurs after breakfast and lunch. Increase breakfast insulin from 3U to 4U and add 2U of NovoLOG before lunch.
[2018-01-06] MEDS: ARGININE 500 MG PO SCH (09:27)
[2018-01-06] MEDS: BIOTIN 5 MG PO SCH (09:28)
[2018-01-06] MEDS: METFORMIN 1,000 MG TABLET PO SCH ×2 (09:28→17:17)
[2018-01-06] MEDS: SPIRONOLACTONE 25 MG TABLET PO SCH (09:29)
[2018-01-06] MEDS: LEVOCARNITINE 1000 MG/10 ML PO SCH (09:29)
[2018-01-06] MEDS: CLOPIDOGREL 75 MG TABLET PO SCH (09:29)
[2018-01-06] MEDS: ASPIRIN 81 MG CHEWABLE TABLET PO SCH (09:29)
[2018-01-06] MEDS: MAGNESIUM CHLORIDE 64 MG PO SCH (09:30)
[2018-01-06] MEDS: INSULIN ASPART 100unit/ml INJECTION SQ PRN ×3 (10:40→21:41)
--- NOTE | 2018-01-06 11:02 | IRU Progress Note ---
- Subjective/Serverity of Illness Date: 01/06/18 Kat developed sudden onset of chest discomfort this morning at 6:30 AM which awakened her. I evaluated the patient subsequently. She was seen by Brenna from the hospitalist service earlier this morning. Essentially she was awakened with left anterior have a chest pain. It radiated up into her left jaw. She is not able to tell if it went into her left arm or not. It decreased with nitroglycerin. However her blood pressure decreased as well. She has had 2 nitroglycerin and the pain is much improved. She denies any associated sweating, dyspnea or nausea. Review of electrocardiogram was performed indicating a left bundle branch block which was similar to the ones we have from [place]. She is feeling better at the present time. The patient reports she has had these episodes at least 4 times yearly. They typically recur over a period of a couple of weeks. Her initial troponin is negative. Follow-up troponin is scheduled for this afternoon. We'll hold therapy for the time being. Review of therapy however up until today indicates that she is able to ambulate with a front-wheeled walker 135 feet. She is able to transfer with contact guard assistance for physical therapy. For occupational therapy she continues to have difficulty moving the left hand and reduced fine motor movement is noted. She says that her ability to make a fist was better yesterday than it is this morning. She denies any headaches except that related to the nitroglycerin. Exam Vital Signs: Temperature 97.8 F 01/06/18 07:18 Pulse Rate 76 01/06/18 08:04 Respiratory Rate 18 01/06/18 08:00 Blood Pressure 109/61 01/06/18 08:04 Pulse Oximetry 96 01/06/18 08:04 Height/Weight/BMI: Height 1.55 m Weight 67.5 kg Body Mass Index 28.0 - Constitutional Present: mild distress, well nourished, well developed, cooperative - Routine HEENT Exam Head: Present: normocephalic Eye: Present: EOMI ENT: Present: mucous membranes moist, oropharynx clear - Routine Neck Exam Present: supple - Routine Respiratory Exam Present: CTA bilaterally. Absent: wheezes - Routine Cardiovascular Exam Present: S1, S2, murmur - Routine Abdominal Exam Present: soft, normoactive bowel sounds, non distended. Absent: tenderness - Routine Extremities Exam Present: no edema, normal capillary refill - Routine Skin Exam Present: dry, warm - Routine Neurological Exam Present: alert, oriented X3, CN II-XII intact, motor deficit (within the patient displays a mild left face droop as well as reduced fine motor movement of the left upper extremity. Also his reduced strength in general of the left arm. I was unable to assess her lower extremity strength this morning.) - Routine Psychiatric Exam Present: normal affect Results IRU - Labs Labs: Have reviewed other providers notes as well as electrocardiograms and laboratory. IRU A/P (1) Cerebrovascular accident (CVA) due to embolism of right middle cerebral artery Current visit: Yes Status: Acute Neurologically she may have declined slightly with regard to functional movement of the left upper extremity. However no other gross neurologic changes are identified. (2) CAD (coronary artery disease) Qualifiers: Coronary Disease-Associated Artery/Lesion type: [place] artery [place] vs. transplanted heart: [place] heart Associated angina: without angina Qualified Code(s): I25.10 - Atherosclerotic heart disease of [place] coronary artery without angina pectoris Current visit: No Status: Chronic Patient describes fairly typical angina. Initial troponin is negative. Hospitalist service has evaluated as well. I have also reviewed all of the daytime and admitted decision to hold therapy for the time being. We will monitor the patient carefully. She is on telemetry. (3) Diabetes mellitus Qualifiers: Diabetes mellitus type: type 2 Diabetes mellitus termite control servicer insulin use: with termite control servicer use Diabetes mellitus complication status: with circulatory complication Diabetes mellitus complication detail: with other circulatory complications Qualified Code(s): E11.59 - Type 2 diabetes mellitus with other circulatory complications; Z79.4 - terminal superintendent (current) use of insulin Current visit: No Status: Chronic Her blood sugars are around 200. (4) HTN (hypertension) Qualifiers: Hypertension type: essential hypertension Qualified Code(s): I10 - Essential (primary) hypertension Current visit: No Status: Chronic Her blood pressures have dropped a bit with the use of nitroglycerin as anticipated. (5) Diastolic CHF, acute on chronic Current visit: Yes Status: Chronic (6) S/p TAVR (transcatheter aortic valve replacement), bioprosthetic Current visit: Yes Status: Acute DVT Prophylaxis: SCD's Resuscitation Status: Do Not Resuscitate - Course Hospital Course: Alex Wylie MD: 01/05/18 11:38 Patient's movement of left hand is improved. Cooperative with therapy. Blood sugars are running a bit high. Blood pressure is good. Cardiovascular status appears to be stable. 01/06/18 11:03 Onset of typical angina this morning at 6:30 AM. Initial electrocardiogram shows left bundle branch block which is unchanged from comparison electrocardiograms from [place]. Initial troponin negative. Improved with nitroglycerin. Hold therapy. - Interventions to Obtain Goals PT Treatment Plan: Balance/Proprioception, Functional Activities, Gait Training , Patient/Family Education, Therapeutic Exercise OT Treatment Plan: ADL (Basic Care), Balance Training, Electrical Stimulation, IADL, Pt./Family Education, Ther. Exercise for ADL, UE Functional Training, Ultrasound Goals Progress/Modifications: Kat has developed anterior chest discomfort with radiation into the left jaw. She has been evaluated by myself as well as the hospitalist service. Initial troponin is negative. Blood pressure is a bit down since the second nitroglycerin. Pain is improved. Electrocardiogram shows left bundle branch block which is unchanged from comparison electrocardiograms in [place]. Because of these events, we will hold therapy for the time being and monitor her carefully. I have reviewed her functional progress. She continues to have difficulty with left upper extremity weakness and reduced fine motor movement. Patient remains on Plavix.
[2018-01-06] MEDS: INSULIN ASPART 100unit/ml INJECTION SQ SCH ×2 (12:20→17:17)
--- NOTE | 2018-01-06 14:56 | Progress Note ---
Progress Note: I rechecked the patient on several occasions subsequent to my morning note. Pain was resolved as of noon. Follow-up troponin remains normal.
[2018-01-06] MEDS: LORATADINE 10 MG TABLET PO SCH (21:40)
[2018-01-06] MEDS: AMLODIPINE 10 MG TABLET PO SCH (21:40)
[2018-01-06] MEDS: INSULIN GLARGINE 100unit/ml INJECTION SQ SCH (21:41)
[2018-01-07] MEDS: LEVOTHYROXINE 88 MCG TABLET PO SCH (05:34)
[2018-01-07] MEDS: GEMFIBROZIL 600 MG TABLET PO SCH (08:23)
[2018-01-07] MEDS: CLOPIDOGREL 75 MG TABLET PO SCH (08:24)
[2018-01-07] MEDS: METFORMIN 1,000 MG TABLET PO SCH ×2 (08:24→17:20)
[2018-01-07] MEDS: LEVOCARNITINE 1000 MG/10 ML PO SCH (08:24)
[2018-01-07] MEDS: ASPIRIN 81 MG CHEWABLE TABLET PO SCH (08:24)
[2018-01-07] MEDS: SPIRONOLACTONE 25 MG TABLET PO SCH (08:24)
[2018-01-07] MEDS: ARGININE 500 MG PO SCH (08:24)
[2018-01-07] MEDS: INSULIN ASPART 100unit/ml INJECTION SQ SCH ×3 (08:26→17:24)
[2018-01-07] MEDS: MAGNESIUM CHLORIDE 64 MG PO SCH (08:28)
[2018-01-07] MEDS: BIOTIN 5 MG PO SCH (08:29)
[2018-01-07] MEDS: INSULIN ASPART 100unit/ml INJECTION SQ PRN ×2 (10:57→20:29)
[2018-01-07] MEDS ORDERED: FALL RISK - PHARMACY CONSULT MC ONE (13:17)
[2018-01-07] MEDS: INSULIN GLARGINE 100unit/ml INJECTION SQ SCH (20:28)
[2018-01-07] MEDS: AMLODIPINE 10 MG TABLET PO SCH (20:29)
[2018-01-07] MEDS: LORATADINE 10 MG TABLET PO SCH (20:29)
[2018-01-07] MEDS: ACETAMINOPHEN 325 MG TABLET PO PRN (20:52)
[2018-01-08] MEDS: LEVOTHYROXINE 88 MCG TABLET PO SCH (05:42)
[2018-01-08] MEDS: MAGNESIUM CHLORIDE 64 MG PO SCH (08:51)
[2018-01-08] MEDS: ASPIRIN 81 MG CHEWABLE TABLET PO SCH (08:51)
[2018-01-08] MEDS: METFORMIN 1,000 MG TABLET PO SCH ×2 (08:51→17:49)
[2018-01-08] MEDS: CLOPIDOGREL 75 MG TABLET PO SCH (08:51)
[2018-01-08] MEDS: GEMFIBROZIL 600 MG TABLET PO SCH (08:51)
[2018-01-08] MEDS: INSULIN ASPART 100unit/ml INJECTION SQ SCH ×3 (08:52→17:49)
[2018-01-08] MEDS: SPIRONOLACTONE 25 MG TABLET PO SCH (08:52)
[2018-01-08] MEDS: LEVOCARNITINE 1000 MG/10 ML PO SCH (08:53)
[2018-01-08] MEDS: BIOTIN 5 MG PO SCH (08:54)
[2018-01-08] MEDS: ARGININE 500 MG PO SCH (08:54)
[2018-01-08] MEDS: INSULIN ASPART 100unit/ml INJECTION SQ PRN ×2 (11:13→21:58)
--- NOTE | 2018-01-08 11:32 | IRU Progress Note ---
- Subjective/Serverity of Illness Date: 01/08/18 Kat was reassessed in her room on inpatient rehabilitation. She reports that she has had no further chest pain since a couple of days ago. However she was awakened by her "heart beating" last night. She says it was not irregular necessarily nor was it rapid. I reviewed her telemetry strips. She is in sinus mechanism with only occasional PVC and PAC. There was no evidence of atrial fibrillation or other dysrhythmia that I could see. She is cooperative with therapy. I asked her about her left eyelid with regard to ptosis. I did not know if that was related to the current neurologic event or not. 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 She continues to have weakness in the left upper and left lower extremities. She reports that when she gets tired the left lower extremity really does slow down. She is standby assist for many activities with regard to occupational therapy. However does have the barrier of reduced functional ability in the left upper extremity. Today when I assessed her she was able to make a better fist and was starting to move the fingers better. Her blood sugars remain a bit elevated. She is on a sliding insulin scale. She apparently was on immediate acting insulin in the past but states that she was able to talk her doctor out of that. Dietitian would like to have her see an artillery officer. Her appetite remains reasonable. Her swallowing is adequate. Exam Vital Signs: Temperature 97.9 F 01/08/18 08:00 Pulse Rate 83 01/08/18 08:02 Respiratory Rate 16 01/08/18 08:00 Blood Pressure 132/60 01/08/18 08:00 Pulse Oximetry 97 01/08/18 08:00 Height/Weight/BMI: Height 1.55 m Weight 67.5 kg Body Mass Index 28.0 - Constitutional Present: no acute distress, well nourished, well developed, cooperative Comments: She remains very pleasant and cooperative and does not appear to be anxious. - Routine HEENT Exam Head: Present: normocephalic Eye: Present: EOMI ENT: Present: mucous membranes moist, oropharynx clear Comments: Continues to be a very mild left face droop that is not terribly noticeable most of the time. 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 - Routine Neck Exam Present: supple - Routine Respiratory Exam Present: decreased breath sounds, CTA bilaterally. Absent: wheezes - Routine Cardiovascular Exam Present: RRR, S1, S2, murmur - Routine Abdominal Exam Present: soft, normoactive bowel sounds, non distended. Absent: tenderness - Routine Extremities Exam Present: no edema, normal capillary refill - Routine Skin Exam Present: dry, warm - Routine Neurological Exam Present: alert, oriented X3, CN II-XII intact, motor deficit (fine motor movement left upper extremity is improved. Engineer Process strength improved left upper extremity. Left face continues to be very slightly sagging and left lower extremity shows reduced flexion strength at left knee and left hip.) - Routine Psychiatric Exam Present: normal affect, cooperative, good insight, good judgment. Absent: anxious Results IRU - Labs Labs: Have reviewed other providers notes as well as laboratory results etc. IRU A/P (1) Cerebrovascular accident (CVA) due to embolism of right middle cerebral artery Current visit: Yes Status: Acute She is showing improvement with regard to functional activities. However significant barriers exist regarding left upper extremity weakness. Fine motor movement appears to be clinically better. (2) CAD (coronary artery disease) Qualifiers: Coronary Disease-Associated Artery/Lesion type: [place] artery [place] vs. transplanted heart: [place] heart Associated angina: without angina Qualified Code(s): I25.10 - Atherosclerotic heart disease of [place] coronary artery without angina pectoris Current visit: No Status: Chronic She has had no further chest discomfort. Troponins remained negative. (3) Diabetes mellitus Qualifiers: Diabetes mellitus type: type 2 Diabetes mellitus half-way insulin use: with half-way use Diabetes mellitus complication status: with circulatory complication Diabetes mellitus complication detail: with other circulatory complications Qualified Code(s): E11.59 - Type 2 diabetes mellitus with other circulatory complications; Z79.4 - long term (current) use of insulin Current visit: No Status: Chronic Blood sugars are somewhat variable. She is on a sliding insulin scale. Management per hospitalists. (4) HTN (hypertension) Qualifiers: Hypertension type: essential hypertension Qualified Code(s): I10 - Essential (primary) hypertension Current visit: No Status: Chronic Her blood pressures seem to be well controlled at present. (5) Diastolic CHF, acute on chronic Current visit: Yes Status: Chronic (6) S/p TAVR (transcatheter aortic valve replacement), bioprosthetic Current visit: Yes Status: Acute No change in heart sounds/valve sounds with regard to the recent aortic valve replacement. She has had no further chest discomfort. DVT Prophylaxis: SCD's Resuscitation Status: Do Not Resuscitate - Course Hospital Course: Alex Wylie MD: 01/05/18 11:38 Patient's movement of left hand is improved. Cooperative with therapy. Blood sugars are running a bit high. Blood pressure is good. Cardiovascular status appears to be stable. 01/06/18 11:03 Onset of typical angina this morning at 6:30 AM. Initial electrocardiogram shows left bundle branch block which is unchanged from comparison electrocardiograms from [place]. Initial troponin negative. Improved with nitroglycerin. Hold therapy. 01/08/18 11:35 No further chest discomfort. Had palpitations and telemetry shows occasional PVC/PAC but no atrial fibrillation. Progressing with therapy with functional activities. Blood pressures are controlled. Blood sugars remain variable. - Interventions to Obtain Goals PT Treatment Plan: Balance/Proprioception, Functional Activities, Gait Training , Patient/Family Education, Therapeutic Exercise OT Treatment Plan: ADL (Basic Care), Balance Training, Electrical Stimulation, IADL, Pt./Family Education, Ther. Exercise for ADL, UE Functional Training, Ultrasound Goals Progress/Modifications: Patient remains somewhat medically complex. She has had no further chest discomfort for the last 48 hours. At the time that she did have the discomfort it certainly sounded like angina. Thankfully her troponins remained negative. She now reports palpitations in the middle the night which appear to be consistent with PVC on telemetry. I do not see evidence of atrial fibrillation. Her lungs remain clear. Continues to have significant neurologic deficit with regard to left upper extremity with regard to functional activities. However fine motor movement is improving. Left lower extremity is weak but is best when she has rested adequately. Her blood sugars remain elevated variably and she is on a sliding insulin scale. Discussed possibility of endocrinology referral at some point as outpatient.
--- NOTE | 2018-01-08 13:22 | IRU Team Meeting ---
IRU Team Meeting - Nursing Bladder Management Level of Assist: Independent Bladder Frequency of Accidents: No accidents Bowel Assistive Devices Utilized:: Medication Bowel Management Level of Assist: Modified Independent Bowel Frequency of Accidents: No accidents Vital Signs: Vital Signs - 24 hr 01/07/18 15:37 01/07/18 15:56 01/07/18 16:00 Temperature 98.0 F 98.0 F Pulse Rate 72 76 70 Respiratory Rate 16 16 Blood Pressure 124/60 122/56 Pulse Oximetry 98 99 01/07/18 20:50 01/07/18 23:05 01/08/18 05:27 Temperature 98.0 F Pulse Rate 70 61 67 Respiratory Rate 16 Blood Pressure 123/67 Pulse Oximetry 97 01/08/18 05:40 01/08/18 05:51 01/08/18 08:00 Temperature 97.9 F Pulse Rate 65 67 89 Respiratory Rate 16 Blood Pressure 124/65 132/60 Pulse Oximetry 96 97 01/08/18 08:02 Temperature Pulse Rate 83 Respiratory Rate Blood Pressure Pulse Oximetry Current Medications: Acetaminophen (Tylenol) 650 mg PO Q4HPRN PRN PRN Reason: Pain Last Admin: 01/07/18 20:52 Dose: 650 mg Amlodipine Besylate (Norvasc) 10 mg PO HS [facility] Last Admin: 01/07/18 20:29 Dose: 10 mg Aspirin (Asa) 81 mg PO DAILY [facility] Last Admin: 01/08/18 08:51 Dose: 81 mg Clopidogrel Bisulfate (Plavix) 75 mg PO DAILY [facility] Last Admin: 01/08/18 08:51 Dose: 75 mg Dextrose (D50%W) 20 ml IVP PRN PRN PRN Reason: Hypoglycemia Gemfibrozil (Lopid) 600 mg PO 0730 [facility] Last Admin: 01/08/18 08:51 Dose: 600 mg Insulin Aspart (Novolog) 1 - 5 unit SQ SS PRN; Protocol PRN Reason: Hyperglycemia Last Admin: 01/08/18 11:13 Dose: 2 unit Insulin Aspart (Novolog) 3 unit SQ WS [facility] Last Admin: 01/07/18 17:24 Dose: 3 unit Insulin Aspart (Novolog) 4 unit SQ WB [facility] Last Admin: 01/08/18 08:52 Dose: 4 unit Insulin Aspart (Novolog) 2 unit SQ WL [facility] Last Admin: 01/08/18 12:16 Dose: 2 unit Insulin Glargine (Lantus) 19 unit SQ HS [facility] Last Admin: 01/07/18 20:28 Dose: 19 unit Levocarnitine (L-Carnitine) 250 mg PO DAILY [facility] Last Admin: 01/08/18 08:53 Dose: 250 mg Levothyroxine Sodium (Synthroid) 88 mcg PO ACB [facility] Last Admin: 01/08/18 05:42 Dose: 88 mcg Loratadine (Claritin) 10 mg PO HS [facility] Last Admin: 01/07/18 20:29 Dose: 10 mg Magnesium Chloride (Slo Mag) 128 mg PO DAILY [facility] Last Admin: 01/08/18 08:51 Dose: 128 mg Magnesium Hydroxide (Mom) 30 ml PO DAILY PRN PRN Reason: Constipation Metformin HCl (Glucophage) 1,000 mg PO BIDWM [facility] Last Admin: 01/08/18 08:51 Dose: 1,000 mg Nitroglycerin (Nitrostat) 0.4 mg SL Q5M PRN PRN Reason: Chest pain Last Admin: 01/06/18 08:55 Dose: 0.4 mg Pom-Biotin 5 Mg (Tablet) 5 mg PO DAILY [facility] Last Admin: 01/08/18 08:54 Dose: Not Given Ztp-[id number] 500 (Mg Tablet) 500 mg PO DAILY [facility] Last Admin: 01/08/18 08:54 Dose: 500 mg Polyethylene Glycol (Miralax) 17 gm PO DAILY [facility] Last Admin: 01/05/18 08:43 Dose: Not Given Senna/Docusate Sodium (Senna Plus Tablet) 1 tab PO BID PRN PRN Reason: Constipation Spironolactone (Aldactone 25 Mg) 25 mg PO DAILY [facility] Last Admin: 01/08/18 08:52 Dose: 25 mg Current Medical Issues: Status post transcatheter aortic valve replacement, diabetes mellitus, hypertension, status post embolic CVA involving right hemisphere and left side of body Comments: I certify that I personally led the interdisciplinary team meeting and agree with comments, barriers and goals indicated. Team meeting was held in the patient's room with the patient and the following family members present: Patient's Kat is very cooperative. She denies any chest pain at present but did have some a couple of days ago. It was rather prolonged but had negative troponins 2. Reports some palpitations which seem to correlate with isolated PVCs and no atrial fibrillation. Appetite is reasonable. - Dietary Patient is on a consistent carbohydrate diet and tries to avoid gluten. She will undergo a review of dietary considerations. - Physical Therapy Bed, Chair, Wheelchair Transfer Assist: Stand By Assist/Supervision Ambulation Ability: Stand By Assist/Supervision Ambulation Distance: 171 Stair Climbing Ability: Stand By Assist/Supervision, Household Exception Number of Steps Climbed: 4 Car Transfer Ability: Stand By Assist/Supervision Comments: She is very cooperative with physical therapy and is demonstrating improved gait , balance and attention to the left side. She is standby assist for ambulation 171 feet with a front-wheeled walker - Occupational Therapy Eating Ability: Independent Grooming Ability: Independent Bathing Ability: Stand By Assist/Supervision Upper Body Dressing Ability: Stand By Assist/Supervision Lower Body Dressing Ability: Stand By Assist/Supervision Tub Transfer Assist: Stand By Assist/Supervision Toileting Assist: Patient Refuses Toilet Transfer Assist: Patient Refuses Comments: Patient is using assistive devices. She is progressing toward goals. Left hand functional improvement is encouraged. - Goals Physical Therapy Goals: 01/08/18. 1.) Modified independence with use of walker for transfers and ambulation. 2.) 24/28 on [place] Balance Assessment. Occupational Therapy Goals: OT goals 01/08/18: 1.) Lower body dressing with modified independence. 2.) Light meal prep with modified independence. 3.) Increase left business support coordinator strength to 3+/5. - Barriers to Discharge Barriers to Attaining Goals: Endurance, Medical Limitation - Care Plan Anticipated Length of Stay (days): 5 Anticipated DC Destination: Home, Self Care, Home Health Service I have led this team conference and agree with the plan. Interventions/Goals: Patient is making significant functional improvement. Anticipate safe transition to home environment middle of next week.
[2018-01-08] MEDS: ACETAMINOPHEN 325 MG TABLET PO PRN (18:31)
[2018-01-08] MEDS: LORATADINE 10 MG TABLET PO SCH (21:57)
[2018-01-08] MEDS: AMLODIPINE 10 MG TABLET PO SCH (21:57)
[2018-01-08] MEDS: INSULIN GLARGINE 100unit/ml INJECTION SQ SCH (21:59)
[2018-01-08] MEDS: SALINE FLUSH 10ml SYRINGE IV PRN (22:06)
[2018-01-09] MEDS: LEVOTHYROXINE 88 MCG TABLET PO SCH (06:03)
[2018-01-09] MEDS: LEVOCARNITINE 1000 MG/10 ML PO SCH (08:08)
[2018-01-09] MEDS: BIOTIN 5 MG PO SCH (08:09)
[2018-01-09] MEDS: ARGININE 500 MG PO SCH (08:10)
[2018-01-09] MEDS: GEMFIBROZIL 600 MG TABLET PO SCH (08:10)
[2018-01-09] MEDS: INSULIN ASPART 100unit/ml INJECTION SQ SCH ×3 (08:10→17:11)
[2018-01-09] MEDS: SPIRONOLACTONE 25 MG TABLET PO SCH (08:10)
[2018-01-09] MEDS: CLOPIDOGREL 75 MG TABLET PO SCH (08:10)
[2018-01-09] MEDS: ASPIRIN 81 MG CHEWABLE TABLET PO SCH (08:10)
[2018-01-09] MEDS: MAGNESIUM CHLORIDE 64 MG PO SCH (08:10)
[2018-01-09] MEDS: METFORMIN 1,000 MG TABLET PO SCH ×2 (08:10→17:10)
[2018-01-09] MEDS: INSULIN ASPART 100unit/ml INJECTION SQ PRN ×2 (14:52→20:50)
[2018-01-09] MEDS: NITROGLYCERIN 0.4 MG SUBLINGUAL TABLET SL PRN (19:16)
[2018-01-09] MEDS: LORATADINE 10 MG TABLET PO SCH (20:48)
[2018-01-09] MEDS: AMLODIPINE 10 MG TABLET PO SCH (20:48)
[2018-01-09] MEDS: INSULIN GLARGINE 100unit/ml INJECTION SQ SCH (20:49)
[2018-01-10] MEDS: NITROGLYCERIN 0.4 MG SUBLINGUAL TABLET SL PRN ×4 (03:23→11:52)
[2018-01-10] MEDS: ACETAMINOPHEN 325 MG TABLET PO PRN ×2 (03:50→20:29)
[2018-01-10] MEDS: LEVOTHYROXINE 88 MCG TABLET PO SCH (06:03)
[2018-01-10] MEDS: LEVOCARNITINE 1000 MG/10 ML PO SCH (08:57)
[2018-01-10] MEDS: MAGNESIUM CHLORIDE 64 MG PO SCH (08:57)
[2018-01-10] MEDS: METFORMIN 1,000 MG TABLET PO SCH ×2 (08:58→17:12)
[2018-01-10] MEDS: INSULIN ASPART 100unit/ml INJECTION SQ SCH ×3 (08:58→17:13)
[2018-01-10] MEDS: CLOPIDOGREL 75 MG TABLET PO SCH (08:58)
[2018-01-10] MEDS: SPIRONOLACTONE 25 MG TABLET PO SCH (08:58)
[2018-01-10] MEDS: GEMFIBROZIL 600 MG TABLET PO SCH (08:58)
[2018-01-10] MEDS: ASPIRIN 81 MG CHEWABLE TABLET PO SCH (08:58)
[2018-01-10] MEDS: BIOTIN 5 MG PO SCH (08:59)
[2018-01-10] MEDS: ARGININE 500 MG PO SCH (08:59)
[2018-01-10] MEDS: SALINE FLUSH 10ml SYRINGE IV PRN ×3 (09:01→20:29)
[2018-01-10] MEDS ORDERED: DiphenhydrAMINE 25 MG CAPSULE PO ONE (09:24)
[2018-01-10] MEDS: INSULIN ASPART 100unit/ml INJECTION SQ PRN (11:03)
[2018-01-10] MEDS: INSULIN GLARGINE 100unit/ml INJECTION SQ SCH (20:28)
[2018-01-10] MEDS: AMLODIPINE 10 MG TABLET PO SCH (20:28)
[2018-01-10] MEDS: LORATADINE 10 MG TABLET PO SCH (20:29)
[2018-01-11] MEDS: LEVOTHYROXINE 88 MCG TABLET PO SCH (06:00)
[2018-01-11 07:04] VITALS: RESP 16
[2018-01-11] MEDS: SALINE FLUSH 10ml SYRINGE IV PRN ×3 (08:38→20:45)
[2018-01-11] MEDS: LEVOCARNITINE 1000 MG/10 ML PO SCH (08:38)
[2018-01-11] MEDS: MAGNESIUM CHLORIDE 64 MG PO SCH (08:38)
[2018-01-11] MEDS: SPIRONOLACTONE 25 MG TABLET PO SCH (08:39)
[2018-01-11] MEDS: BIOTIN 5 MG PO SCH (08:39)
[2018-01-11] MEDS: METFORMIN 1,000 MG TABLET PO SCH ×2 (08:39→17:13)
[2018-01-11] MEDS: CLOPIDOGREL 75 MG TABLET PO SCH (08:39)
[2018-01-11] MEDS: ASPIRIN 81 MG CHEWABLE TABLET PO SCH (08:39)
[2018-01-11] MEDS: GEMFIBROZIL 600 MG TABLET PO SCH (08:39)
[2018-01-11] MEDS: INSULIN ASPART 100unit/ml INJECTION SQ SCH ×3 (08:40→17:13)
[2018-01-11] MEDS: ARGININE 500 MG PO SCH (08:40)
[2018-01-11] MEDS: INSULIN ASPART 100unit/ml INJECTION SQ PRN (10:11)
--- NOTE | 2018-01-11 11:20 | IRU Progress Note ---
- Subjective/Serverity of Illness Date: 01/11/18 Kat was interviewed and examined in the gymnasium area on inpatient rehabilitation. She reports an episode of chest discomfort this weekend on 01/10. 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 Tried Benadryl but did not help. Was given nitroglycerin subsequently with benefit. Has not recurred. Onset was at rest. Some her to the episode which happened 3 or 4 days prior. Patient has done well since that time. She is able to ambulate without chest discomfort. Her vital signs of been stable. Brief therapy update: For occupational therapy she is standby assist for upper and lower body dressing as well as for transfers. Physical therapy she is able to ambulate with a front-wheeled walker 179 feet with standby assistance. Update on medical issues we are actively monitoring and managin. Status post transcutaneous aortic valve replacement: Her cardiac sounds are stable. Denies any lightheadedness. Has appointment on the to follow-up in [place] in this regard. 2. History of aortic stenosis, severe and symptomatic: Resolved due to placement of aortic valve. 3. 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 Fine motor movement continues to be reduced. 4. Diabetes mellitus type 2, on long-term insulin: Sugars reviewed. 5. Coronary artery disease status post numerous stent placements with most recent being in October 2017. She remains on Plavix in this regard. Has had 2 episodes of chest discomfort both of which sound as though they were fairly typical for angina. No evidence of muscle damage in terms of elevated troponin. Exam Vital Signs: Temperature 98.2 F 01/11/18 07:03 Pulse Rate 77 01/11/18 08:00 Respiratory Rate 16 01/11/18 07:03 Blood Pressure 106/43 01/11/18 07:03 Pulse Oximetry 97 01/11/18 07:03 Height/Weight/BMI: Height 1.55 m Weight 66.7 kg Body Mass Index 28.0 - Constitutional Present: no acute distress, well nourished, well developed, cooperative - Routine HEENT Exam Head: Present: normocephalic Eye: Present: EOMI ENT: Present: mucous membranes moist, oropharynx clear - Routine Respiratory Exam Present: CTA bilaterally. Absent: wheezes - Routine Cardiovascular Exam Present: RRR, S1, S2, murmur. Absent: S3, S4 - Routine Abdominal Exam Present: soft, normoactive bowel sounds, non distended. Absent: tenderness - Routine Extremities Exam Present: no edema, normal capillary refill - Routine Skin Exam Present: dry, warm - Routine Neurological Exam Present: alert, oriented X3, CN II-XII intact, motor deficit (minimal left facial droop. Left lower extremity weakness identified as before. Left upper extremity fine motor movement reduced in left hand but able to make a better service agent today.) - Routine Psychiatric Exam Present: normal affect, normal thought process, cooperative, good insight, good judgment Results IRU - Labs Labs: Have reviewed other providers notes and lab data etc. IRU A/P (1) Cerebrovascular accident (CVA) due to embolism of right middle cerebral artery Current visit: Yes Status: Acute She is making functional improvement and anticipate a safe transfer to home (2) CAD (coronary artery disease) Qualifiers: Coronary Disease-Associated Artery/Lesion type: [place] artery [place] vs. transplanted heart: [place] heart Associated angina: with stable angina Qualified Code(s): I25.118 - Atherosclerotic heart disease of [place] coronary artery with other forms of angina pectoris Current visit: No Status: Chronic She has had her second episode of chest discomfort. This has been somewhat atypical in terms of it being at rest. Telemetry has been benign. Etiology not clear. (3) Diabetes mellitus Qualifiers: Diabetes mellitus type: type 2 Diabetes mellitus snf insulin use: with intermediate teacher use Diabetes mellitus complication status: with circulatory complication Diabetes mellitus complication detail: with other circulatory complications Qualified Code(s): E11.59 - Type 2 diabetes mellitus with other circulatory complications; Z79.4 - terminal clerk (current) use of insulin Current visit: No Status: Chronic Sugars are variable with ranges from 135 up to 200. (4) HTN (hypertension) Qualifiers: Hypertension type: essential hypertension Qualified Code(s): I10 - Essential (primary) hypertension Current visit: No Status: Chronic (5) Diastolic CHF, acute on chronic Current visit: Yes Status: Chronic (6) S/p TAVR (transcatheter aortic valve replacement), bioprosthetic Current visit: Yes Status: Acute Her valve sounds are stable. DVT Prophylaxis: SCD's Resuscitation Status: Do Not Resuscitate - Course Hospital Course: Alex Wylie MD: 01/05/18 11:38 Patient's movement of left hand is improved. Cooperative with therapy. Blood sugars are running a bit high. Blood pressure is good. Cardiovascular status appears to be stable. 01/06/18 11:03 Onset of typical angina this morning at 6:30 AM. Initial electrocardiogram shows left bundle branch block which is unchanged from comparison electrocardiograms from [place]. Initial troponin negative. Improved with nitroglycerin. Hold therapy. 01/08/18 11:35 No further chest discomfort. Had palpitations and telemetry shows occasional PVC/PAC but no atrial fibrillation. Progressing with therapy with functional activities. Blood pressures are controlled. Blood sugars remain variable. 01/11/18 11:22 Has had another episode of chest discomfort. Subsequently resolved. Blood sugars remain variable. She is progressing with therapy but continues to have reduced fine motor movement left upper extremity. - Interventions to Obtain Goals PT Treatment Plan: Balance/Proprioception, Functional Activities, Gait Training , Patient/Family Education, Therapeutic Exercise OT Treatment Plan: ADL (Basic Care), Balance Training, Electrical Stimulation, IADL, Pt./Family Education, Ther. Exercise for ADL, UE Functional Training, Ultrasound Goals Progress/Modifications: Continues to have episodes of chest discomfort which are atypical. They are not happening with exertion but occur at rest. Previous troponin evaluation was negative. Etiology unclear but certainly sounds like angina. She is able to tolerate therapy and does not have chest discomfort with that. She is making functional progress.
[2018-01-11] MEDS ORDERED: NEOMYCIN/POLYMYXIN/BACITRACIN OINT PACKET TP PRN (13:04)
--- NOTE | 2018-01-11 13:18 | Progress Note ---
- Date 01/11/18 Subjective: Kat was in her room, getting ready to work on her left hand again with therapy. She states that it's getting stronger and the muscles are waking up. She denies SOA or chest pain - though has a hx of Prinzmetal's angina and occ gets chest pain - last time she had chest pain as yesterday. No abd pain or GI complaints. She denies feeling dizzy. A toenail fell off on her left foot, which is painful. Objective Vital signs: Temperature 98.2 F 01/11/18 07:03 Pulse Rate 77 01/11/18 08:00 Respiratory Rate 16 01/11/18 07:03 Blood Pressure 106/43 01/11/18 07:03 Pulse Oximetry 97 01/11/18 07:03 Height/Weight/BMI: Height 1.55 m Weight 66.7 kg Body Mass Index 28.0 - Constitutional Present: no acute distress, well nourished, well developed - Routine HEENT Exam Head: Present: normocephalic Eye: Absent: conjunctival icterus, scleral injection - Routine Respiratory Exam Present: CTA bilaterally - Routine Cardiovascular Exam Present: RRR, S1, S2 - Routine Abdominal Exam Present: soft, normoactive bowel sounds, non distended, non tender - Routine Extremities Exam Present: no edema, pulses intact - Routine Musculoskeletal Exam Musculoskeletal: Present: other (right 3rd toenail partially avulsed. Clean and intact with minimal dried blood on medial edge.) - Routine Skin Exam Present: intact, dry, warm - Routine Neurological Exam Present: alert, oriented X3, normal speech subtle left facial droop. Left lower extremity weakness. Reduced Left upper extremity fine motor coordination. - Routine Psychiatric Exam Present: normal affect, normal thought process, cooperative Results - Labs CBC & Chem 7: 01/11/18 04:34 01/08/18 04:56 Assessment and Plan Assessment and Plan: Assessment: Acute neuro changes with left-sided weakness, left hand flaccidity without diagnosis of acute stroke Valvular heart disease Severe aortic stenosis status post TAVR 12/29/17 CAD with multiple stents placed. Diabetes mellitus, uncontrolled - recent A1c was 10%. Hypertension Hypothyroidism History of hypomagnesium Dyslipidemia Prinzmetal angina History of peripheral vascular disease Chronic right bundle branch block CHF - preserved EF Plan - 01/11/18: tends to have elevated BGM after breakfast. Increase NovoLOG with breakfast to 6U. BP stable. Angina occurred yesterday, relieved with NTG. Resuscitation Status: Do Not Resuscitate - Physician Narrative Narrative: Date: 01/11/18 Time: 1312 Hospital Course Summary Disclaimer: The visit summary below is not to be considered part of the above Progress Note. Hospital Course: Plan - 01/05/18: Continue therapies per Dr. Wylie. BGMs elevated (180-306). Continue home metformin and evening Lantus. Will start NovoLog 3 units at breakfast and dinner. Continue sliding scale insulin as needed and monitor blood sugars closely. May need additional insulin at lunch. Will adjust insulin dosages as indicated. Monitor closely for signs of hypoglycemia. Increased stools. Will decrease bowel motivation and monitor closely. Will recheck labs on 01/08 to monitor blood counts, electrolytes and renal function. 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 Placed on tele; EKG and serial trop ordered. EKG reviewed, showing LBBB - records from [place] indicate RBBB but have no postop EKG for comparison. We were able to have EKGs from [place] faxed over - prior to sx she did not have LBBB but on 12/31/17 she had LBBB - comparing that EKG to current one they are very similar. We may also contact her cement finisher, Dr. Zapata at [facility]. Since her SBP decreased by 30 mm Hg after NTG x1 and later improved to 126. Later she developed jaw pain, also similar to pain she's had before - since EKG is unchanged will give additional NTG. Hyperglycemia typically occurs after breakfast and lunch. Increase breakfast insulin from 3U to 4U and add 2U of NovoLOG before lunch. 01/11/18 tends to have elevated BGM after breakfast. Increase NovoLOG with breakfast to 6U. BP stable. Angina occurred yesterday, relieved with NTG.
[2018-01-11] MEDS: AMLODIPINE 10 MG TABLET PO SCH (20:45)
[2018-01-11] MEDS: INSULIN GLARGINE 100unit/ml INJECTION SQ SCH (20:45)
[2018-01-11] MEDS: LORATADINE 10 MG TABLET PO SCH (20:45)
[2018-01-11] MEDS: ACETAMINOPHEN 325 MG TABLET PO PRN (22:36)
[2018-01-12] MEDS: LEVOTHYROXINE 88 MCG TABLET PO SCH (05:51)
[2018-01-12] MEDS: SPIRONOLACTONE 25 MG TABLET PO SCH (08:32)
[2018-01-12] MEDS: METFORMIN 1,000 MG TABLET PO SCH ×2 (08:32→17:15)
[2018-01-12] MEDS: CLOPIDOGREL 75 MG TABLET PO SCH (08:32)
[2018-01-12] MEDS: GEMFIBROZIL 600 MG TABLET PO SCH (08:32)
[2018-01-12] MEDS: INSULIN ASPART 100unit/ml INJECTION SQ SCH ×3 (08:32→17:15)
[2018-01-12] MEDS: ASPIRIN 81 MG CHEWABLE TABLET PO SCH (08:32)
[2018-01-12] MEDS: LEVOCARNITINE 1000 MG/10 ML PO SCH (08:33)
[2018-01-12] MEDS: BIOTIN 5 MG PO SCH (08:33)
[2018-01-12] MEDS: ARGININE 500 MG PO SCH (08:33)
[2018-01-12] MEDS: MAGNESIUM CHLORIDE 64 MG PO SCH (08:34)
[2018-01-12] MEDS: SALINE FLUSH 10ml SYRINGE IV PRN (08:36)
--- NOTE | 2018-01-12 11:02 | IRU Progress Note ---
- Subjective/Serverity of Illness Date: 01/12/18 Kat was evaluated on inpatient rehabilitation with the therapist present. She is making significant functional gains. Left hand fine motor movement is improving. Able to tie her shoes for the first time today with both hands. She however reports that the left leg continues to be weak and she notices this primarily after she has been walking a bit. There is a very slight left facial droop but this is improving. Her appetite remains good. She has had no further chest discomfort since the weekend. Her blood sugars are reviewed. She is on oral agents as well as short-acting and long-acting insulin. She has had no hypoglycemic spells. She does use long- acting insulin at home but is on long and short acting here. We will investigate to see if she can safely give herself insulin shots in view of the left upper extremity weakness. She may well require a pen. Exam Vital Signs: Temperature 97.6 F 01/12/18 08:00 Pulse Rate 73 01/12/18 08:00 Respiratory Rate 16 01/12/18 08:00 Blood Pressure 126/63 01/12/18 08:00 Pulse Oximetry 100 01/12/18 08:00 Height/Weight/BMI: Height 1.55 m Weight 66.7 kg Body Mass Index 28.0 - Constitutional Present: no acute distress, well nourished, well developed, cooperative (very cheerful and positive) - Routine HEENT Exam Head: Present: normocephalic Eye: Present: EOMI ENT: Present: mucous membranes moist, oropharynx clear - Routine Respiratory Exam Present: CTA bilaterally. Absent: wheezes - Routine Cardiovascular Exam Present: RRR, S1, S2. Absent: murmur - Routine Abdominal Exam Present: soft, normoactive bowel sounds, non distended. Absent: tenderness - Routine Extremities Exam Present: normal capillary refill - Routine Skin Exam Present: dry, warm - Routine Neurological Exam Present: alert, oriented X3, CN II-XII intact, motor deficit (left upper extremity weaker than right at elbow and shoulder. Left hand fine motor movement improving and able to make a fist. Can touch thumb to forefinger now and somewhat to small finger at times. Left lower extremity also week.) - Routine Psychiatric Exam Present: normal affect, normal thought process, cooperative, good insight, good judgment Results IRU - Labs Labs: Have reviewed chart data and other providers notes. IRU A/P (1) Cerebrovascular accident (CVA) due to embolism of right middle cerebral artery Current visit: Yes Status: Acute Patient is making functional gains particularly with regard to left upper extremity fine motor movement. She remains positive and eager to return home. (2) CAD (coronary artery disease) Qualifiers: Coronary Disease-Associated Artery/Lesion type: [place] artery [place] vs. transplanted heart: [place] heart Associated angina: with stable angina Qualified Code(s): I25.118 - Atherosclerotic heart disease of [place] coronary artery with other forms of angina pectoris Current visit: No Status: Chronic She has had no further chest discomfort since the weekend. Etiology of this is not clear to me. (3) Diabetes mellitus Qualifiers: Diabetes mellitus type: type 2 Diabetes mellitus residential insulin use: with terminal block assembler use Diabetes mellitus complication status: with circulatory complication Diabetes mellitus complication detail: with other circulatory complications Qualified Code(s): E11.59 - Type 2 diabetes mellitus with other circulatory complications; Z79.4 - manager intermediate (current) use of insulin Current visit: No Status: Chronic Her blood sugars seem to be relatively well controlled. At home she is on long- acting insulin. We will see if she can give her own injections in view of the left upper extremity weakness. (4) HTN (hypertension) Qualifiers: Hypertension type: essential hypertension Qualified Code(s): I10 - Essential (primary) hypertension Current visit: No Status: Chronic (5) Diastolic CHF, acute on chronic Current visit: Yes Status: Chronic (6) S/p TAVR (transcatheter aortic valve replacement), bioprosthetic Current visit: Yes Status: Acute DVT Prophylaxis: SCD's Resuscitation Status: Do Not Resuscitate - Course Hospital Course: Alex Wylie MD: 01/05/18 11:38 Patient's movement of left hand is improved. Cooperative with therapy. Blood sugars are running a bit high. Blood pressure is good. Cardiovascular status appears to be stable. 01/06/18 11:03 Onset of typical angina this morning at 6:30 AM. Initial electrocardiogram shows left bundle branch block which is unchanged from comparison electrocardiograms from [place]. Initial troponin negative. Improved with nitroglycerin. Hold therapy. 01/08/18 11:35 No further chest discomfort. Had palpitations and telemetry shows occasional PVC/PAC but no atrial fibrillation. Progressing with therapy with functional activities. Blood pressures are controlled. Blood sugars remain variable. 01/11/18 11:22 Has had another episode of chest discomfort. Subsequently resolved. Blood sugars remain variable. She is progressing with therapy but continues to have reduced fine motor movement left upper extremity. 01/12/18 11:04 No further chest discomfort. Making significant functional gains with therapy particularly left upper extremity. Blood sugars improved. We will see if she can give herself her own insulin injections. - Interventions to Obtain Goals PT Treatment Plan: Balance/Proprioception, Functional Activities, Gait Training , Patient/Family Education, Therapeutic Exercise OT Treatment Plan: ADL (Basic Care), Balance Training, Electrical Stimulation, IADL, Pt./Family Education, Ther. Exercise for ADL, UE Functional Training, Ultrasound Goals Progress/Modifications: The patient is making significant functional gains. Neurologically she is improving somewhat with regard to left upper and left lower extremity strength and manual dexterity. Her blood sugars remain a bit elevated. At home she uses an insulin pen once daily. I discussed with occupational therapy as well as nursing to see if she can give herself her own injections. She will need at a minimum once daily insulin and possibly 4 times daily.
--- NOTE | 2018-01-12 15:12 | Letter to Referring Physician ---
Dear Drs. Smith and Isaías, This is a brief note to bring you up-to-date on the status of Kat Miller and her stay on the acute inpatient rehabilitation unit at [facility]. As you are likely aware, this patient was admitted to [facility] on 12/29/17 for TAVR procedure. In the immediate postoperative timeframe she was noted to have some left upper extremity weakness. Initially this was felt to be secondary to nerve compression. However, she subsequently was noted to have left lower extremity weakness and a mild left facial droop, consistent with acute embolic CVA into the right middle cerebral artery distribution. The patient was stabilized while on the acute level and admitted to inpatient rehabilitation unit at [facility] on January 03, 2018. While on inpatient rehabilitation, this patient was seen by occupational therapy and physical therapy and improved overall in their functional ability. We also monitored and managed the patient's blood sugars, blood pressures and chest pain while on Acute Rehab. She did experience 2 episodes of severe anterior chest discomfort both at rest and lasting about 30 minutes. The first episode was on 01/06/2018 and the second was on 01/10/2018. Troponins were negative. Electrocardiogram did not change. Etiology of her atypical chest pain is not clear. Please see a copy of the history and physical examination as well as discharge summary faxed separately for further details. Anticipated date of dismissal from acute inpatient rehabilitation in [place] is 01/13/2018. She has an appointment to see Dr. Metz in [place] at the [facility] [place] on 01/15/2018 at 10 AM. Thank you for allowing us to be involved in this nice patient's care. Please contact me directly should you have any questions regarding their stay on the inpatient rehabilitation unit. Sincerely, Alex Wylie M.D.
[2018-01-12 20:36] VITALS: TEMP 98
[2018-01-12] MEDS: LORATADINE 10 MG TABLET PO SCH (21:03)
[2018-01-12] MEDS: AMLODIPINE 10 MG TABLET PO SCH (21:03)
[2018-01-12] MEDS: INSULIN GLARGINE 100unit/ml INJECTION SQ SCH (21:03)
[2018-01-13] MEDS: LEVOTHYROXINE 88 MCG TABLET PO SCH (06:36)
[2018-01-13] MEDS: GEMFIBROZIL 600 MG TABLET PO SCH (07:50)
[2018-01-13 08:02] VITALS: BP 114/64; PULSE 69; O2SAT 99
[2018-01-13] MEDS: INSULIN ASPART 100unit/ml INJECTION SQ SCH ×2 (08:40→12:13)
[2018-01-13] MEDS: SPIRONOLACTONE 25 MG TABLET PO SCH (08:42)
[2018-01-13] MEDS: ASPIRIN 81 MG CHEWABLE TABLET PO SCH (08:42)
[2018-01-13] MEDS: CLOPIDOGREL 75 MG TABLET PO SCH (08:42)
[2018-01-13] MEDS: METFORMIN 1,000 MG TABLET PO SCH (08:43)
[2018-01-13] MEDS: LEVOCARNITINE 1000 MG/10 ML PO SCH (08:43)
[2018-01-13] MEDS: BIOTIN 5 MG PO SCH (08:44)
[2018-01-13] MEDS: MAGNESIUM CHLORIDE 64 MG PO SCH (08:44)
[2018-01-13] MEDS: ARGININE 500 MG PO SCH (08:49)
[2018-01-13] MEDS: INSULIN ASPART 100unit/ml INJECTION SQ PRN (10:40)
--- NOTE | 2018-01-14 14:46 | Discharge Summary ---
Discharge Information Date of admission: 01/03/18 10:55 Anticipated date of discharge: 01/13/18 Attending Physician: Alex Wylie MD Primary care physician: Moose Smith MD Consults: 01/03/18 13:32 Physician Consult [CONS] Routine Consulting Provider: Alcides Hunter Reason For Exam: medical management Ordering Provider has Notified Merchandise Flow Team Leader: No 01/12/18 Skip Hoist Engineer Consult [Inpatient Diabetic Consult] [CONS] Routine Diabetic Diagnosis: E11.65 Uncontrolled T2 DM Diabetic Training: Medications Monitoring Diabetes Comment: New CVA, can she use pen and can she do BGM's? - Discharge Diagnosis (1) Cerebrovascular accident (CVA) due to embolism of right middle cerebral artery Status: Acute (2) CAD (coronary artery disease) Status: Chronic (3) Diabetes mellitus Status: Chronic (4) HTN (hypertension) Status: Chronic (5) Diastolic CHF, acute on chronic Status: Chronic (6) S/p TAVR (transcatheter aortic valve replacement), bioprosthetic Status: Acute 1. Cerebrovascular accident secondary to embolus into right middle cerebral artery resulting in left facial droop, left upper extremity weakness with reduced fine motor movement and left leg weakness 2. Diabetes mellitus type 2, controlled, on long-term insulin, with vascular complications (coronary artery disease) 3. Underlying coronary artery disease status post stent placement in October 2017 4. Two episodes of chest discomfort of unclear etiology without elevated troponin, occurring during acute inpatient rehabilitation at rest 5. Diastolic heart failure 6. S/P placement of transcutaneous aortic valve replacement for severe low flow aortic stenosis - Laboratory Labs: 01/11/18 04:34 01/08/18 04:56 History of Present Illness HPI: Ms. Miller has a rather complex cardiology history with recent stent placement in October 2017. In addition she has had progressive aortic stenosis with a low flow state. She underwent TAVR procedure by Dr. Metz and Dr. Pfeiffer on 2017. In the recovery room she noted weakness in the left upper and lower extremities. Patient was felt to be a candidate for inpatient rehabilitation where she was transferred on 01/04/2018 for a multidisciplinary approach to her recovery. Hospital Course This is a general summary of the patient's hospital course. For more details refer to the complete medical record. The patient was admitted to acute inpatient rehabilitation on 01/04/2018. She had evidence of a mild left face droop as well as weakness of the left upper extremity with particular reduction and fine motor movement of the left hand. She also had weakness of the left lower extremity. She required physical therapy and occupational therapy. She was also evaluated by speech therapy but was felt to be stable in this regard. She was monitored by the hospitalist service as well as by Dr. Wylie, Black[employer] Hammer Operator. She had onset of severe chest discomfort at rest on 01/06/2018. Serial troponins 3 were negative and electrocardiogram was unchanged. We did hold therapy for a day in this regard. She then was involved with therapy again and was able to participate without difficulty. She subsequently developed another episode of chest discomfort on approximately 01/10/2018. Again this was at rest although otherwise was consistent with angina. This resolved with nitroglycerin. However, it is not clear if these are truly related to ischemic heart disease or not. She has a history of diabetes mellitus. She has been on long-acting insulin at home but has not been on short acting. We did add on sliding scale insulin, short acting during the time of her stay on IRU. Her blood sugars subsequently became controlled at around 90-114. She was seen by the certified tobacco prevention health educator. Ultimately she was sent home on the same regimen she came in with, utilizing Lantus 19 units at bedtime daily as well as her oral agents. The following levels of functional competence are to be considered preliminary information. The reader is encouraged to refer to actual therapy notes and reports for specific details. She was seen by occupational therapy. At the conclusion of therapy her functional status is as follows: She was independent with dressing and able to perform ADLs satisfactorily. She was able to manage her own insulin therapy and administration. She was seen by physical therapy. At the conclusion of therapy her functional status is as follows: She was able to transfer with modified independent level. She could ambulate with a front-wheeled walker up to 300 feet. She was felt to be stable to transfer to her home. She was dismissed in improved condition on 01/13/2018. She is not given any additional pain medications except for Tylenol. She will follow-up with Dr. Metz in [place] on 01/15/2018 at 10 AM at the [facility] [place]. Hospital course: Plan - 01/05/18: Continue therapies per Dr. Wylie. BGMs elevated (180-306). Continue home metformin and evening Lantus. Will start NovoLog 3 units at breakfast and dinner. Continue sliding scale insulin as needed and monitor blood sugars closely. May need additional insulin at lunch. Will adjust insulin dosages as indicated. Monitor closely for signs of hypoglycemia. Increased stools. Will decrease bowel motivation and monitor closely. Will recheck labs on 01/08 to monitor blood counts, electrolytes and renal function. 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 Placed on tele; EKG and serial trop ordered. EKG reviewed, showing LBBB - records from [place] indicate RBBB but have no postop EKG for comparison. We were able to have EKGs from [place] faxed over - prior to sx she did not have LBBB but on 12/31/17 she had LBBB - comparing that EKG to current one they are very similar. We may also contact her nurse unit manager, Dr. Zapata at [facility]. Since her SBP decreased by 30 mm Hg after NTG x1 and later improved to 126. Later she developed jaw pain, also similar to pain she's had before - since EKG is unchanged will give additional NTG. Hyperglycemia typically occurs after breakfast and lunch. Increase breakfast insulin from 3U to 4U and add 2U of NovoLOG before lunch. 01/11/18 tends to have elevated BGM after breakfast. Increase NovoLOG with breakfast to 6U. BP stable. Angina occurred yesterday, relieved with NTG. Time spent with patient: greater than 35 minutes Resuscitation Status: Do Not Resuscitate Discharge Plan - Med Rec/Dispo Referrals/Follow Up: Jay Metz MD [Physician] - (Dr. Abel Metz on 01/15/18 at 10:00 am for follow-up appt. [facility] [address] [address]) Moose Smith MD [Primary Care Provider] - (Dr. Kaylah Smith on 01/27/18 at 10:00 am for Hosp. follow-up. [address] [place] [place] [address]) Prescriptions: New PEG 3350 17gm PACKET [Miralax] 17 gm PO DAILY packet Senna + Docusate [Senna Plus Tablet] 1 tab PO BID PRN tab PRN Reason: Constipation Continue Levothyroxine Sodium 88 mcg PO DAILY #0 Clopidogrel Bisulfate [Plavix] 75 mg PO DAILY #0 Loratadine 10 mg PO HS #0 Amlodipine [Norvasc] 10 mg PO HS Arginine [l-Arginine] 500 mg PO DAILY Biotin 5 mg PO DAILY levOCARNitine tartrate [l-Carnitine] 250 mg PO DAILY Spironolactone [Aldactone 25 mg] 25 mg PO DAILY Gemfibrozil 600 mg PO DAILY #0 Aspirin 81 mg PO DAILY #0 Metformin [Glucophage] 1,000 mg PO BIDWM Magnesium Chloride [Slo Mag] 2 tab PO DAILY Insulin Glargine,Hum.rec.anlog [Lantus Solostar] 19 unit SQ HS Acetaminophen [Tylenol] 650 mg PO Q4HPRN PRN PRN Reason: Pain - Disposition [facility] - Dismissal Complete Discharge Instructions are:: Complete
== END 2018-01-13 13:20 | disposition home health service (06) | DRG 57 ==
PROVIDERS: ADMIT Internal Medicine; ATTEND Internal Medicine